=== PATIENT | female | born 1930 | race Caucasian/White ===

== ENCOUNTER 2016-08-24 19:49 | Emergency (ER) | payer MEDICARE, MEDICAID ==
[2016-08-24 19:50] VITALS: BMI 35.1
--- NOTE | 2016-08-24 20:07 | C.PDOC ---
History Of Present Illness Patient is an 86 year old female sent to the ER by snf for a CT of the head after having a fall. Patient was found on the floor by nurses at the home. Patient complains of generalized body aches but denies direct chest pain or abdominal pain. Chief Complaint (Nursing): Headache History Per: Patient History/Exam Limitations: no limitations Onset/Duration Of Symptoms: Hrs Current Symptoms Are (Timing): Still Present Quality: Other (Headache) Preceeding Symptoms: None Recent travel outside of the [place]: No Past Medical History Reviewed: Historical Data, Nursing Documentation, Vital Signs Vital Signs: Last Vital Signs Temp 97.9 F 08/25/16 01:29 Pulse 87 08/25/16 01:29 Resp 20 08/25/16 01:29 BP 110/79 08/25/16 01:29 Pulse Ox 98 08/25/16 05:19 - Medical History PMH: Anxiety, Arthritis, Asthma, COPD, Dementia, Diabetes, Emphysema, HTN, Chronic Pain (Left Knee) Surgical History: No Surg Hx Family History: States: Unknown Family Hx - Social History Hx Tobacco Use: No Hx Alcohol Use: No Hx Substance Use: No - Immunization History Hx Tetanus Toxoid Vaccination: No Hx Influenza Vaccination: No Hx Pneumococcal Vaccination: No Review Of Systems Cardiovascular: Negative for: Chest Pain Musculoskeletal: Positive for: Other (Generalized body aches). Negative for: Neck Pain Neurological: Positive for: Headache Physical Exam - Physical Exam Appears: Well, Non-toxic, Other (Conscious and alert) Skin: Normal Color, Warm, Dry Head: Atraumatic, Normacephalic Eye(s): bilateral: Normal Inspection, EOMI Oral Mucosa: Moist Chest: Symmetrical, No Tenderness Cardiovascular: Rhythm Regular, No Murmur Respiratory: Normal Breath Sounds, No Rales, No Rhonchi, No Wheezing Gastrointestinal/Abdominal: Soft, No Tenderness Neurological/Psych: Oriented x3, Normal Speech, Normal Cognition, Other (No focal deficits) ED Course And Treatment ECG: Interpreted By Me, Viewed By Me ECG Rhythm: Sinus Rhythm, 1st Degree HB, R BBB ECG Interpretation: No Acute Changes, Abnormal Interpretation Of ECG: Sinus rhythm with 1st degree av block, CRBBB , Left axis deviation, LAHB, abnormal tracings. Rate From EC O2 Sat by Pulse Oximetry: 98 (Room air) Pulse Ox Interpretation: Normal - CT Scan/US CT head w/o contrast Other Rad Studies (CT/US): Read By Radiologist, Radiology Report Reviewed CT/US Interpretation: IMPRESSION: No acute findings. Progress Note: Head CT w/o contrast and EKG ordered. Dr. Fay called and notified of CT results, patient is cleared for discharge. Disposition Discussed With : John Fay Counseled Patient/Family Regarding: Diagnosis - Disposition Referrals: John Fay MD [Staff Provider] - Disposition: TRANSF TO SNF Disposition Time: 01:30 Condition: STABLE Instructions: General Headache (ED) - POA Present On Arrival: None - Clinical Impression Clinical Impression: Headache, Fall at snf - Scribe Statement The provider has reviewed the documentation as recorded by the Scribfaustina Pettit All medical record entries made by the Scribe were at my direction and personally dictated by me. I have reviewed the chart and agree that the record accurately reflects my personal performance of the history, physical exam, medical decision making, and the department course for this patient. I have also personally directed, reviewed, and agree with the discharge instructions and disposition.
[2016-08-25 01:32] VITALS: BP 110/79; PULSE 87; RESP 20; TEMP 97.9; O2SAT 98
--- NOTE | 2016-08-25 08:15 | CT ---
PROCEDURE: CT HEAD WITHOUT CONTRAST. HISTORY: Posttraumatic headache. COMPARISON: 10/18/2014. TECHNIQUE: Axial computed tomography images were obtained through the head/brain without intravenous contrast. Coronal and sagittal reconstructed images. Radiation dose: Total exam DLP = 854.28 mGy-cm. This CT exam was performed using one or more of the following dose reduction techniques: Automated exposure control, adjustment of the mA and/or kV according to patient size, and/or use of iterative reconstruction technique. FINDINGS: HEMORRHAGE: No intracranial hemorrhage. BRAIN: No mass effect or edema. Cortical atrophy, periventricular small vessel disease VENTRICLES: Unremarkable. No hydrocephalus. CALVARIUM: Unremarkable. PARANASAL SINUSES: Unremarkable as visualized. No significant inflammatory changes. MASTOID AIR CELLS: Unremarkable as visualized. No inflammatory changes. OTHER FINDINGS: None. IMPRESSION: No acute intracranial abnormalities. No significant findings to account for the clinical presentation. No significant interval change compared to the prior examination(s). Concordant results (preliminary interpretation) provided by [facility]. Procedure Completed: 21:18. Preliminary ([facility]) Report: Dictated and Authenticated: 21:42 Final Interpretation: 08:14. August 25, 2016.
--- NOTE | 2016-08-28 12:40 | CARD ---
APPROVED REPORT EKG Measurement Heart [id number] <Conclusion> Sinus rhythm with 1st degree AV block Right bundle branch block Left anterior fascicular block Bifascicular block Minimal voltage criteria for LVH, may be normal variant Septal infarct, age undetermined Abnormal ECG
== END 2016-08-25 01:32 ==
LOC: C.ER 19:49
DX: R51 Headache (principal); W05.0XXA Fall from non-moving wheelchair, initial encounter; Y92.129 Unspecified place in nursing home as the place of occurrence of the external cause

== ENCOUNTER 2016-11-07 11:57 | Observation (INO) | payer MEDICARE, MEDICAID ==
[2016-11-07 11:57] VITALS: BMI 35.1
--- NOTE | 2016-11-07 12:53 | C.PDOC ---
History Of Present Illness LIMITED DUE TO DEMENTIA REFERRED FROM [facility] BY PMD FOR MRI. PATIENT'S DAUGHTER STATES: NEW ONSET SLURRED SPEECH GOING ON FOR WEEKS, CONCERNED FOR STROKE. DENIES CHANGE IN MENTAL STATUS. SHE ALSO REPORTS THE PT DOES NOT WALK "FOR A WHILE". STATE PT HAS BEEN EATING AND DRINKING NORMALLY. Time Seen by Provider: 11/07/16 12:48 Chief Complaint (Nursing): Medical Clearance History Per: Family (DAUGHTER) History/Exam Limitations: no limitations Onset/Duration Of Symptoms: Days Current Symptoms Are (Timing): Still Present Recent travel outside of the [place]: No Past Medical History Reviewed: Historical Data, Nursing Documentation, Vital Signs Vital Signs: Last Vital Signs Temp 98.3 F 11/08/16 16:00 Pulse 92 H 11/08/16 16:00 Resp 20 11/08/16 16:00 BP 140/83 11/08/16 16:00 Pulse Ox 98 11/08/16 16:00 - Medical History PMH: Anxiety, Arthritis, Asthma, COPD, Dementia, Diabetes, Emphysema, HTN, Chronic Pain (Left Knee) Family History: States: Unknown Family Hx - Social History Hx Tobacco Use: No Hx Alcohol Use: No Hx Substance Use: No - Immunization History Hx Tetanus Toxoid Vaccination: No Hx Influenza Vaccination: No Hx Pneumococcal Vaccination: No Review Of Systems Review Of Systems: ROS cannot be obtained secondary to pt's inabilty to answer questions. Physical Exam - Physical Exam Appears: Non-toxic, Other (AAO X 2) Skin: Warm, Dry Head: Atraumatic, Normacephalic Chest: Symmetrical Cardiovascular: Rhythm Regular Respiratory: No Rales, No Rhonchi, No Wheezing Gastrointestinal/Abdominal: Soft, No Tenderness, No Guarding, No Rebound Extremity: Normal ROM Neurological/Psych: Other (SEE NIH) ED Course And Treatment - Laboratory Results Result Diagrams: 11/07/16 13:29 11/08/16 07:14 ECG: Interpreted By Co ECG Rhythm: Sinus Rhythm, 1st Degree HB O2 Sat by Pulse Oximetry: 97 (RA) Pulse Ox Interpretation: Normal - Radiology CXR: Read By Radiologist - CT Scan/US CT ABDOMEN/PELVIS Other Rad Studies (CT/US): Read By Radiologist, Radiology Report Reviewed CT/US Interpretation: FINDINGS: LOWER THORAX: Limited bilateral basilar dependent atelectasis identified. No pleural or pericardial effusion. Mild cardiomegaly is noted as well as a small hiatal hernia. Calcified granuloma is seen at the left lower lobe. LIVER: 115 cm cyst in the right lobe liver posteriorly with the talus is seen even more inferiorly in the right lobe, too small to characterize. GALLBLADDER AND BILE DUCTS: Unremarkable. PANCREAS: Unremarkable. No gross lesion or ductal dilatation. SPLEEN: Unremarkable. ADRENALS: Unremarkable. No mass. KIDNEYS AND URETERS: There is an 11 mm lucency seen at the upper pole right kidney laterally, which measures 26 Hounsfield units and may represent a right complex cyst although a solid nodule is not completely excluded. Follow-up CT or MRI without contrast is advised for better characterization. A tiny 4 mm lucency seen the upper pole right kidney too small to characterize The left kidney appears diffusely unremarkable. VASCULATURE: Atherosclerotic without aortic aneurysm. BOWEL: Patient is identified status post partial right hemicolectomy with retained fecal material traversing the anastomotic segment, obscuring it. No gross finding is seen related to this area. No pericolic reaction is seen throughout the exam. Liquified fecal material is identified at the splenic flexure and proximal to mid descending colon with borderline pericolic reaction which could reflect an early colitis. No mural thickening is identified however. Further clinical correlation is advised. Small-bowel loops reduced unremarkable. Lack of oral contrast limits interpretation. Extensive sigmoid diverticular change identified with mural thickening which may be chronic. Trace fluid is question lateral to the mid to distal sigmoid colon and element of acute diverticular disease is not excluded. Further clinical correlation is advised. Stomach is largely collapsed. APPENDIX: Prior right hemicolectomy. PERITONEUM: No ascites or free air. . LYMPH NODES: Unremarkable. No enlarged lymph nodes. BLADDER: Unremarkable. REPRODUCTIVE: Calcified uterine fibroids noted. BONES : No acute fracture. OTHER FINDINGS: A tiny supraumbilical hernia is identified with the neck measuring 1 cm. No bowel involved, only mesenteric fat. IMPRESSION: Prior right hemicolectomy is appreciated with retained fecal material obscuring the anastomotic site in the right upper quadrant. No local reactive change are appreciated or free air to suggest acute disease at the right knee abdomen. Liquid fecal associate the left hemicolon and extensively bulk sigmoid diverticular changes are appreciated with trace potential fluid posterior to the mid to distal sigmoid colon. Active diverticulitis difficult to completely exclude. No abscess or free air. Also complex cyst or nodule 11 mm at the upper pole right kidney. Follow-up CT or MRI is advised without contrast for greater characterization. Sigmoid diverticular change are present with borderline pattern of acute diverticulitis. Further clinical correlation is advised. The lesser findings as discussed above. Progress - Re-Evaluation Re-evaluation Note: 11/07/16 13:00 D/W DR DAVIS WILL ADMIT. 11/07/16 13:57 NO SX SUGGESTIVE OF PNEUMONIA. NO WBC W SHIFT. CXR FINDINGS TO BE FURTHER MANAGED BY PMD - Data Reviewed Data Reviewed: Lab, Diagnostic imaging, EKG, Old records - Continuity of Care Discussed patient case with:: Patient, Family-HIPPA compliant, PMD Medical Decision Making Medical Decision Making: DAUGHTER STATES NO KNOWN METALLIC FOREIGN BODY. PT DOES HAVE ANXIETY, POSSIBLE PRIOR POOR TOLERANCE OF HAVING MRI DONE. CONVERSATION WITH RYAN AT 13:00 - AWARE OF FINDINGS, AWARE OF CONCERN OVER PT TOLERATING PROCEDURE, WILL ADMIT OBS AND PERFORM TEST INPATIENT. NO CT PER DR. DAVIS. Disposition Counseled Patient/Family Regarding: Studies Performed, Diagnosis - Disposition Disposition: HOSPITALIZED Disposition Time: 14:00 Condition: STABLE - Clinical Impression Clinical Impression: Slurred speech - Scribe Statement The provider has reviewed the documentation as recorded by the Scribe SM All medical record entries made by the Scribe were at my direction and personally dictated by me. I have reviewed the chart and agree that the record accurately reflects my personal performance of the history, physical exam, medical decision making, and the department course for this patient. I have also personally directed, reviewed, and agree with the discharge instructions and disposition.
--- NOTE | 2016-11-07 13:30 | RAD ---
PROCEDURE: CHEST RADIOGRAPH, 1 VIEW HISTORY: MED CLEAR SLURRED SPEECH COMPARISON: 02/19/2015 FINDINGS: LUNGS: Prominent diffuse increased interstitial lung markings suggestive for edema and or infiltrate. Prominent patchy consolidative increased markings within the left mid to lower lung zone as well as within the right infra and suprahilar regions. Scattered nodularity throughout both lungs. Biapical pleural thickening with upper lobe granulomatous changes. Right hilar prominence. PLEURA: As above. CARDIOVASCULAR: Cardiomegaly. Calcification at the aortic knob. OSSEOUS STRUCTURES: Degenerative changes in the spine and shoulders. Suggestion of calcific tendinopathy of the right proximal humerus. VISUALIZED UPPER ABDOMEN: Normal. OTHER FINDINGS: Surgical clips in the right axilla. IMPRESSION: Prominent diffuse increased interstitial lung markings suggestive for edema and or infiltrate. Prominent patchy consolidative increased markings within the left mid to lower lung zone as well as within the right infra and suprahilar regions. Scattered nodularity throughout both lungs. Biapical pleural thickening with upper lobe granulomatous changes. Right hilar prominence.
[2016-11-07 13:32] LABS: BASO # 0.1 K/uL (0.0-0.2); BASO % 0.7 % (0.0-2.0); EOS # 0.4 K/uL (0.0-0.7); EOS % 3.8 % (0.0-4.0); HEMATOCRIT 40.2 % (34.0-47.0); LYMPH # 2.2 K/uL (1.0-4.3); LYMPH % 19.9 % (20.0-40.0); MEAN CELL VOLUME 89.2 fL (81.0-99.0); MEAN CORPUSCULAR HGB CONC 33.6 g/dL (33.0-37.0); MEAN PLATELET VOLUME 9.4 fL (7.2-11.7); MONO # 0.6 K/uL (0.0-0.8); MONO % 5.6 % (0.0-10.0); RED CELL DISTRIBUTION WIDTH 13.6 % (11.5-14.5); WHITE BLOOD COUNT 10.9 K/uL (4.8-10.8)
[2016-11-07 14:27] LABS: CHLORIDE 102 mmol/L (98-107); SODIUM 138 mmol/L (132-148)
[2016-11-07 14:28] LABS: POTASSIUM 5.4 mmol/L (3.6-5.2)
[2016-11-07 14:30] LABS: BLOOD UREA NITROGEN 22 mg/dL (7-17); CALCIUM 8.8 mg/dl (8.6-10.4); CARBON DIOXIDE 26 mmol/L (22-30); GFR AFRICAN-AMERICAN > 60; GLUCOSE,RANDOM 128 mg/dL (65-105)
[2016-11-07] MEDS ORDERED: Albuterol-Ipratrop 3 mg / 0.5 (3 ml) UD INH PRN (16:00)
[2016-11-07 16:46] VITALS: RESP 20
[2016-11-07] MEDS: (Novolog) Insulin Aspart, Recombinant 100 u/ml 10 ml vial SC SCH ×2 (17:49→21:49)
--- NOTE | 2016-11-08 03:11 | CP.PCM.HP ---
History of Present Illness - History of Present Illness History of Present Illness: 86 Y/O WITH ALZHEIMRS, DM, HTN OA CAME WITH ACUTE CHANGES IN MENTAL STATUS, NO FEVER, SHE IS HERE TO R/O CVA, NO NAUSEA, NO DIZZINESS, ACUTE AGITATED AND IS S/ P SEDATION FOR MRI, NO NAUSEA, Present on Admission - Present on Admission Any Indicators Present on Admission: No History of DVT/PE: No History of Uncontrolled Diabetes: No Urinary Catheter: No Decubitus Ulcer Present: No Review of Systems - Review of Systems Systems not reviewed;Unavailable: Uncooperative - Constitutional Constitutional: Chills, Headache - EENT Nose/Mouth/Throat: Nasal Congestion - Respiratory Respiratory: Cough, Chest Congestion - Gastrointestinal Gastrointestinal: Bloating - Musculoskeletal Musculoskeletal: Arthralgias - Neurological Neurological: Abnormal Gait, Behavioral Changes, Confusion, Tingling, Tremor, Weakness - Psychiatric Psychiatric: Anxiety, Depression - Endocrine Endocrine: Fatigue, Palpitations Past Patient History - Past Medical History & Family History Past Medical History?: Yes - Past Social History Smoking Status: Never Smoked - CARDIAC Hx Hypertension: Yes - PULMONARY Hx Asthma: Yes Hx Chronic Obstructive Pulmonary Disease (COPD): Yes Hx Emphysema: Yes - NEUROLOGICAL Hx Dementia: Yes - HEENT Hx HEENT Problems: No - RENAL Hx Chronic Kidney Disease: No - ENDOCRINE/METABOLIC Hx Diabetes Mellitus Type 2: Yes - HEMATOLOGICAL/ONCOLOGICAL Hx Blood Disorders: No Hx Cancer: Yes (BREAST CA RIGHT) - INTEGUMENTARY Hx Dermatological Problems: No - MUSCULOSKELETAL/RHEUMATOLOGICAL Hx Arthritis: Yes Hx Falls: No - GASTROINTESTINAL Hx Gastrointestinal Disorders: No - GENITOURINARY/GYNECOLOGICAL Hx Genitourinary Disorders: No - PSYCHIATRIC Hx Anxiety: Yes Hx Substance Use: No - SURGICAL HISTORY Hx Mastectomy: Yes (Right mastectomy) Hx Orthopedic Surgery: Yes (left knee) - ANESTHESIA Hx Anesthesia: Yes Hx Anesthesia Reactions: No Hx Malignant Hyperthermia: No Meds Allergies/Adverse Reactions: Allergies Allergy/AdvReac Type Severity Reaction Status Date / Time No Known Allergies Allergy Verified 08/24/16 20:04 Physical Exam - Constitutional Appears: Non-toxic, No Acute Distress - Head Exam Head Exam: ATRAUMATIC, NORMAL INSPECTION, NORMOCEPHALIC - Eye Exam Eye Exam: EOMI, Normal appearance, PERRL Pupil Exam: NORMAL ACCOMODATION - ENT Exam ENT Exam: Mucous Membranes Moist, Normal Exam, Normal Oropharynx, TM's Normal Bilaterally - Neck Exam Neck exam: Positive for: Normal Inspection - Respiratory Exam Respiratory Exam: Decreased Breath Sounds, Rales, Rhonchi, NORMAL BREATHING PATTERN - Cardiovascular Exam Cardiovascular Exam: REGULAR RHYTHM, +S1, +S2 - GI/Abdominal Exam GI & Abdominal Exam: Normal Bowel Sounds - Rectal Exam Rectal Exam: NORMAL INSPECTION - Extremities Exam Extremities exam: Positive for: normal capillary refill, normal inspection, pedal edema, pedal pulses present - Back Exam Back exam: NORMAL INSPECTION - Neurological Exam Neurological exam: Abnormal Gait, Altered - Psychiatric Exam Psychiatric exam: Anxious, Depressed, Flat Affect Results - Vital Signs Recent Vital Signs: Last Vital Signs Temp 98.5 F 11/08/16 00:00 Pulse 85 11/08/16 00:00 Resp 20 11/08/16 00:00 BP 130/69 11/08/16 00:00 Pulse Ox 96 11/08/16 00:00 - Labs Result Diagrams: 11/07/16 13:29 11/07/16 14:13 Labs: Laboratory Results - last 24 hr 11/07/16 11/07/16 11/07/16 13:29 14:13 17:02 WBC 10.9 H RBC 4.51 Hgb 13.5 Hct 40.2 MCV 89.2 MCH 30.0 MCHC 33.6 RDW 13.6 Plt Count 241 MPV 9.4 Neut % (Auto) 70.0 Lymph % (Auto) 19.9 L [place] % (Auto) 5.6 Eos % (Auto) 3.8 Baso % (Auto) 0.7 Neut # 7.7 H Lymph # 2.2 [place] # 0.6 Eos # 0.4 Baso # 0.1 Sodium 138 Potassium 5.4 H Chloride 102 Carbon Dioxide 26 Anion Gap 15 BUN 22 H Creatinine 0.6 L Est GFR ( Amer) > 60 Est GFR (Non-Af Amer) > 60 POC Glucose (mg/dL) 144 H Random Glucose 128 H Calcium 8.8 11/07/16 21:31 WBC RBC Hgb Hct MCV MCH MCHC RDW Plt Count MPV Neut % (Auto) Lymph % (Auto) [place] % (Auto) Eos % (Auto) Baso % (Auto) Neut # Lymph # [place] # Eos # Baso # Sodium Potassium Chloride Carbon Dioxide Anion Gap BUN Creatinine Est GFR ( Amer) Est GFR (Non-Af Amer) POC Glucose (mg/dL) 174 H Random Glucose Calcium Assessment & Plan (1) Altered mental status, unspecified Assessment and Plan: R/O CVA, MRI Status: Acute (2) COPD exacerbation Status: Chronic (3) Diabetes mellitus Status: Chronic (4) Hypertension Status: Chronic
[2016-11-08] MEDS: guaiFENesin 600 mg ER Tab PO SCH ×3 (03:15→17:40)
[2016-11-08] MEDS: Albuterol-Ipratrop 3 mg / 0.5 (3 ml) UD INH SCH ×2 (07:31→13:49)
[2016-11-08 07:42] LABS: BLOOD UREA NITROGEN 22 mg/dL (7-17); CALCIUM 9.1 mg/dl (8.6-10.4); CARBON DIOXIDE 28 mmol/L (22-30); CHLORIDE 101 mmol/L (98-107); CHOLESTEROL 155 mg/dL (0-199); GFR AFRICAN-AMERICAN > 60; GLUCOSE,RANDOM 152 mg/dL (65-105); SODIUM 138 mmol/L (132-148)
[2016-11-08] MEDS: (Novolog) Insulin Aspart, Recombinant 100 u/ml 10 ml vial SC SCH ×3 (08:25→16:55)
--- NOTE | 2016-11-08 09:53 | MRI ---
PROCEDURE: MRI BRAIN WITHOUT CONTRAST HISTORY: slurred speech for 1 week COMPARISON: None. TECHNIQUE: Multiplanar, multisequence MR images of the brain were obtained without intravenous contrast enhancement. FINDINGS: HEMORRHAGE: None DWI: No evidence of an acute or early subacute infarction. BRAIN PARENCHYMA: Diffuse cerebral atrophy is manifest by expansion of the ventricular sulcal and cisternal spaces. Chronic microangiopathy is manifest by centrum semiovale apparent and periventricular white matter signal abnormality including subcortical white matter as well, predominantly at the cerebrum. Posterior fossa contents appear unremarkable the brainstem. There is no mass effect and the midline brain anatomy appears within normal limits diffusely. VENTRICLES: Unremarkable. No hydrocephalus. CRANIUM: Unremarkable. ORBITS: Grossly unremarkable. PARANASAL SINUSES/MASTOIDS: Clear VASCULAR SYSTEM: Skull base flow voids intact. OTHER FINDINGS: None. IMPRESSION: Age-appropriate age related neuro degenerative changes are identified. No definite acute intracranial findings. Motion artifact distorts several sequences this examination.
[2016-11-08] MEDS ORDERED: Pantoprazole 20 mg EC Tab PO SCH (10:00)
--- NOTE | 2016-11-08 15:03 | CP.PCM.PN ---
Subjective - Date & Time of Evaluation Date of Evaluation: 11/08/16 Time of Evaluation: 11:35 - Subjective Subjective: Pt seen and examined today, denies any fever, chills, abdominal niels n . N/V/D , a febrile Objective - Vital Signs/Intake and Output Vital Signs (last 24 hours): Temp Pulse Resp BP Pulse Ox 98 F 79 20 123/80 100 11/08/16 08:08 11/08/16 08:08 11/08/16 08:08 11/08/16 08:08 11/08/16 08:08 Intake and Output: 11/08/16 11/08/16 06:59 18:59 Intake Total 10 Balance 10 - Medications Medications: Current Medications Acetaminophen (Tylenol 325mg Tab) 650 mg PO Q4 PRN PRN Reason: Pain, Mild (1-3) Albuterol/Ipratropium (Duoneb 3 Mg/0.5 Mg (3 Ml) Ud) 3 ml INH RQ6 [facility] Last Admin: 11/08/16 13:49 Dose: Not Given Alprazolam (Xanax) 0.5 mg PO Q12 PRN PRN Reason: Anxiety Docusate Sodium (Colace) 200 mg PO HS [facility] Last Admin: 11/07/16 21:20 Dose: 200 mg Guaifenesin (Mucinex La) 600 mg PO BID [facility] Last Admin: 11/08/16 09:58 Dose: 600 mg Heparin Sodium (Porcine) (Heparin) 5,000 units SC Q8 [facility] Last Admin: 11/08/16 14:58 Dose: 5,000 units Ceftriaxone Sodium 1 gm/ (Sodium Chloride) 100 mls @ 100 mls/hr IVPB DAILY [facility] Last Admin: 11/08/16 10:01 Dose: 100 mls/hr Insulin Aspart (Novolog) 0 unit SC ACHS [facility] PRN Reason: Protocol Last Admin: 11/08/16 12:19 Dose: Not Given Losartan Potassium (Cozaar) 25 mg PO DAILY [facility] Last Admin: 11/08/16 09:58 Dose: 25 mg Memantine (Namenda) 10 mg PO BID [facility] Last Admin: 11/08/16 09:59 Dose: 10 mg Mirtazapine (Remeron) 15 mg PO HS [facility] Last Admin: 11/07/16 21:20 Dose: 15 mg Pantoprazole Sodium (Protonix Ec Tab) 20 mg PO DAILY [facility] Last Admin: 11/08/16 10:01 Dose: 20 mg Pneumococcal Polyvalent Vaccine (Pneumovax 23 Vaccine) 0.5 ml SC .ONCE ONE Stop: 11/09/16 10:01 Zolpidem Tartrate (Ambien) 5 mg PO HS PRN PRN Reason: Insomnia - Labs Labs: 11/07/16 13:29 11/08/16 07:14 - Constitutional Appears: Well, No Acute Distress - Respiratory Exam Respiratory Exam: Clear to Ausculation Bilateral, NORMAL BREATHING PATTERN - Cardiovascular Exam Cardiovascular Exam: REGULAR RHYTHM, +S1, +S2 - GI/Abdominal Exam GI & Abdominal Exam: Soft, Normal Bowel Sounds
--- NOTE | 2016-11-08 16:04 | CP.PCM.PN ---
Subjective - Date & Time of Evaluation Date of Evaluation: 11/08/16 Time of Evaluation: 11:40 - Subjective Subjective: Pt seen and examined today , awake, alert, NAD, a febrile No overnight events reported by RN Objective - Vital Signs/Intake and Output Vital Signs (last 24 hours): Temp Pulse Resp BP Pulse Ox 98 F 79 20 123/80 100 11/08/16 08:08 11/08/16 08:08 11/08/16 08:08 11/08/16 08:08 11/08/16 08:08 Intake and Output: 11/08/16 11/08/16 06:59 18:59 Intake Total 10 400 Balance 10 400 - Medications Medications: Current Medications Acetaminophen (Tylenol 325mg Tab) 650 mg PO Q4 PRN PRN Reason: Pain, Mild (1-3) Albuterol/Ipratropium (Duoneb 3 Mg/0.5 Mg (3 Ml) Ud) 3 ml INH RQ6 [facility] Last Admin: 11/08/16 13:49 Dose: Not Given Alprazolam (Xanax) 0.5 mg PO Q12 PRN PRN Reason: Anxiety Docusate Sodium (Colace) 200 mg PO HS [facility] Last Admin: 11/07/16 21:20 Dose: 200 mg Guaifenesin (Mucinex La) 600 mg PO BID [facility] Last Admin: 11/08/16 09:58 Dose: 600 mg Heparin Sodium (Porcine) (Heparin) 5,000 units SC Q8 [facility] Last Admin: 11/08/16 14:58 Dose: 5,000 units Ceftriaxone Sodium 1 gm/ (Sodium Chloride) 100 mls @ 100 mls/hr IVPB DAILY [facility] Last Admin: 11/08/16 10:01 Dose: 100 mls/hr Insulin Aspart (Novolog) 0 unit SC ACHS [facility] PRN Reason: Protocol Last Admin: 11/08/16 12:19 Dose: Not Given Losartan Potassium (Cozaar) 25 mg PO DAILY [facility] Last Admin: 11/08/16 09:58 Dose: 25 mg Memantine (Namenda) 10 mg PO BID [facility] Last Admin: 11/08/16 09:59 Dose: 10 mg Mirtazapine (Remeron) 15 mg PO HS [facility] Last Admin: 11/07/16 21:20 Dose: 15 mg Pantoprazole Sodium (Protonix Ec Tab) 20 mg PO DAILY [facility] Last Admin: 11/08/16 10:01 Dose: 20 mg Pneumococcal Polyvalent Vaccine (Pneumovax 23 Vaccine) 0.5 ml SC .ONCE ONE Stop: 11/09/16 10:01 Zolpidem Tartrate (Ambien) 5 mg PO HS PRN PRN Reason: Insomnia - Labs Labs: 11/07/16 13:29 11/08/16 07:14 Assessment and Plan - Assessment and Plan (Free Text) Assessment: a/p 86 yr old female admitted from [place] for slurred speech for 1 week r/o stroke MRI - done -Age-appropriate age related neuro degenerative changes are identified. No definite acute intracranial findings. Motion artifact distorts several sequences this examination. labs- wnl d/W with Dr. Fay, stable for discharge back to [place] , continue amoxicillin for x 7 day s Discharge plan discussed with daughter at bedside , who understands and agrees with plan
[2016-11-08 16:51] VITALS: PULSE 92; TEMP 98.3
[2016-11-08 16:53] VITALS: BP 140/83
--- NOTE | 2016-11-09 01:44 | CP.PCM.DIS ---
Provider - Provider Date of Admission: 11/07/16 13:02 Attending physician: John Fay MD Time Spent in preparation of Discharge (in minutes): 30 Diagnosis - Discharge Diagnosis (1) Altered mental status, unspecified Status: Resolved (2) COPD exacerbation Status: Chronic (3) Diabetes mellitus Status: Chronic (4) Hypertension Status: Chronic Hospital Course - Lab Results Lab Results: Micro Results 11/07/16 15:30 Blood Blood Culture - Preliminary NO GROWTH AFTER 24 HOURS Most Recent Lab Values WBC 10.9 K/uL (4.8-10.8) H 11/07/16 13:29 RBC 4.51 Mil/uL (3.80-5.20) 11/07/16 13:29 Hgb 13.5 g/dL (11.0-16.0) 11/07/16 13:29 Hct 40.2 % (34.0-47.0) 11/07/16 13:29 MCV 89.2 fL (81.0-99.0) 11/07/16 13:29 MCH 30.0 pg (27.0-31.0) 11/07/16 13:29 MCHC 33.6 g/dL (33.0-37.0) 11/07/16 13:29 RDW 13.6 % (11.5-14.5) 11/07/16 13:29 Plt Count 241 K/uL (130-400) 11/07/16 13:29 MPV 9.4 fL (7.2-11.7) 11/07/16 13:29 Neut % (Auto) 70.0 % (50.0-75.0) 11/07/16 13:29 Lymph % (Auto) 19.9 % (20.0-40.0) L 11/07/16 13:29 Hayes % (Auto) 5.6 % (0.0-10.0) 11/07/16 13:29 Eos % (Auto) 3.8 % (0.0-4.0) 11/07/16 13:29 Baso % (Auto) 0.7 % (0.0-2.0) 11/07/16 13:29 Neut # 7.7 K/uL (1.8-7.0) H 11/07/16 13:29 Lymph # 2.2 K/uL (1.0-4.3) 11/07/16 13:29 Hayes # 0.6 K/uL (0.0-0.8) 11/07/16 13:29 Eos # 0.4 K/uL (0.0-0.7) 11/07/16 13:29 Baso # 0.1 K/uL (0.0-0.2) 11/07/16 13:29 Sodium 138 mmol/L (132-148) 11/08/16 07:14 Potassium 4.0 mmol/L (3.6-5.2) 11/08/16 07:14 Chloride 101 mmol/L (98-107) 11/08/16 07:14 Carbon Dioxide 28 mmol/L (22-30) 11/08/16 07:14 Anion Gap 13 (10-20) 11/08/16 07:14 BUN 22 mg/dL (7-17) H 11/08/16 07:14 Creatinine 0.6 MG/DL (0.7-1.2) L 11/08/16 07:14 Est GFR ( Amer) > 60 11/08/16 07:14 Est GFR (Non-Af Amer) > 60 11/08/16 07:14 POC Glucose (mg/dL) 122 mg/dL (65-110) H 11/08/16 16:31 Random Glucose 152 mg/dL (65-105) H 11/08/16 07:14 Calcium 9.1 mg/dl (8.6-10.4) 11/08/16 07:14 Triglycerides 161 mg/dL (0-149) H 11/08/16 07:14 Cholesterol 155 mg/dL (0-199) 11/08/16 07:14 LDL Cholesterol Direct 86 mg/dL (0-129) 11/08/16 07:14 HDL Cholesterol 40 mg/dL (30-70) 11/08/16 07:14 - Hospital Course Hospital Course: ADMITTED WITH AMS AND SUSPICION OF CVA AND IT WAS RULED OUT, HAS COUGH AND WHEEZING AND IS ON ANTIBIOTICS AND NEBULIZER Discharge Exam - Head Exam Head Exam: ATRAUMATIC, NORMAL INSPECTION, NORMOCEPHALIC - Eye Exam Eye Exam: EOMI, Normal appearance, PERRL Pupil Exam: NORMAL ACCOMODATION - ENT Exam ENT Exam: Mucous Membranes Moist, Normal Exam, Normal Oropharynx, TM's Normal Bilaterally - Neck Exam Neck exam: Normal Inspection - Respiratory Exam Respiratory Exam: Rhonchi, NORMAL BREATHING PATTERN - Cardiovascular Exam Cardiovascular Exam: REGULAR RHYTHM, +S1, +S2 - GI/Abdominal Exam GI & Abdominal Exam: Normal Bowel Sounds - Rectal Exam Rectal Exam: NORMAL INSPECTION - Neurological Exam Neurological exam: Abnormal Gait, Alert, CN II-XII Intact, Motor Sensory Deficit - Psychiatric Exam Psychiatric exam: Anxious, Depressed, Flat Affect - Skin Skin Exam: Intact Discharge Plan - Discharge Medications Prescriptions: Amoxicillin [Amoxicillin 250mg/5ml Susp] 500 mg PO Q12 7 Days - Follow Up Plan Condition: STABLE Disposition: [facility]
[2016-11-09] MEDS ORDERED: Pneumococcal 23-Valent Vaccine SC ONE (10:00)
[2016-11-09 15:29] VITALS: O2SAT 97
--- NOTE | 2016-11-20 20:22 | CARD ---
APPROVED REPORT EKG Measurement Heart [id number] <Conclusion> Sinus rhythm with 1st degree AV block Left axis deviation Left ventricular hypertrophy with QRS widening Cannot rule out Septal infarct, age undetermined Abnormal ECG
== END 2016-11-08 18:00 ==
LOC: C.ER 11:57 → C.9E 13:02 → C.3T 15:24
PROVIDERS: ADMIT Internal Medicine; ATTEND Internal Medicine
DX: R47.81 Slurred speech (principal); G30.9 Alzheimer's disease, unspecified; F02.80 Dementia in other diseases classified elsewhere, unspecified severity, without behavioral disturbance, psychotic disturbance, mood disturbance, and anxiety; F41.9 Anxiety disorder, unspecified; I10 Essential (primary) hypertension; J44.1 Chronic obstructive pulmonary disease with (acute) exacerbation; E11.9 Type 2 diabetes mellitus without complications; Z79.4 Long term (current) use of insulin
CPT/HCPCS: 36415; 70551; 71010; 80048; 80061; 82948; 85025; 87040; 94640; 97162; 97165; 97530; 97535; 99283; G0378; G8978; G8979; G8987; G8988; G8989; J0696; J1644; J2060

== ENCOUNTER 2017-01-15 17:05 | Inpatient (IN) | payer MEDICARE, MEDICAID ==
[2017-01-15 17:07] VITALS: BMI 35.1
[2017-01-15] MEDS ORDERED: Vancomycin 1 gm/NS 200 ml 1 GM/200 ML BAG IVPB STA (17:32)
[2017-01-15] MEDS ORDERED: Cefepime 1 GM in Sodium Chloride 0.9% 50 ML IVPB ONE (17:32)
[2017-01-15] MEDS ORDERED: Sodium Chloride 0.9% 1,000 ML IV STA (17:34)
--- NOTE | 2017-01-15 17:38 | C.PDOC ---
History Of Present Illness 86 y/o F c PMHx Anxiety, Arthritis, Asthma, COPD, Dementia, Diabetes, Emphysema , HTN sent from [facility] for fever and CXR showing bilateral infiltrates. Further history and ROS unobtainable due to patient's dementia. Time Seen by Provider: 01/15/17 17:26 Chief Complaint (Nursing): Fever Past Medical History Vital Signs: Last Vital Signs Temp 102.0 F H 01/15/17 17:12 Pulse 88 01/15/17 17:12 Resp 20 01/15/17 17:12 BP 128/79 01/15/17 17:12 Pulse Ox 98 01/15/17 17:51 - Medical History PMH: Anxiety, Arthritis, Asthma, CHF, COPD, Dementia, Depression, Diabetes, Emphysema, HTN, Hypercholesterolemia, Chronic Pain (Left Knee) Denies: Chronic Kidney Disease Family History: States: Unknown Family Hx - Social History Hx Tobacco Use: No Hx Alcohol Use: No Hx Substance Use: No - Immunization History Hx Tetanus Toxoid Vaccination: No Hx Influenza Vaccination: Yes Hx Pneumococcal Vaccination: Yes Review Of Systems Review Of Systems: ROS cannot be obtained secondary to pt's inabilty to answer questions. Physical Exam - Physical Exam Appears: Other (Crying) Skin: No Rash Head: Normacephalic Oral Mucosa: Moist Neck: Supple Chest: No Deformity Cardiovascular: Rhythm Regular Respiratory: Rhonchi (bilaterally) Gastrointestinal/Abdominal: Soft, No Tenderness Extremity: No Tenderness Pulses: Left Radial: Normal, Right Radial: Normal Neurological/Psych: Other (Alert) ED Course And Treatment - Laboratory Results Result Diagrams: 01/15/17 17:37 01/15/17 17:37 O2 Sat by Pulse Oximetry: 98 Medical Decision Making Medical Decision Making: Ibuprofen administered for fever. EKG NSR 87 bpm, RBBB, LAFB, no ST elevations, no change from previous. CXR bilateral infiltrates. Negative lactate. Antibiotics administered. Dr. Fay accepts patient to his service. Disposition Discussed With : John Fay Doctor Will See Patient In The: Hospital - Disposition Disposition: HOSPITALIZED Disposition Time: 18:09 Condition: GUARDED Forms: [employer] (Lebanese) - POA Core Measure Indicators: Pneumonia - Clinical Impression Clinical Impression: Pneumonia
[2017-01-15 17:42] LABS: BASO # 0.1 K/uL (0.0-0.2); BASO % 0.6 % (0.0-2.0); EOS # 0.2 K/uL (0.0-0.7); EOS % 1.6 % (0.0-4.0); HEMATOCRIT 39.5 % (34.0-47.0); LYMPH # 1.1 K/uL (1.0-4.3); LYMPH % 12.1 % (20.0-40.0); MEAN CELL VOLUME 88.7 fL (81.0-99.0); MEAN CORPUSCULAR HEMOGLOBIN 29.9 pg (27.0-31.0); MEAN CORPUSCULAR HGB CONC 33.7 g/dL (33.0-37.0); MEAN PLATELET VOLUME 8.9 fL (7.2-11.7); MONO # 0.6 K/uL (0.0-0.8); MONO % 5.8 % (0.0-10.0); RED CELL DISTRIBUTION WIDTH 13.3 % (11.5-14.5); WHITE BLOOD COUNT 9.5 K/uL (4.8-10.8)
[2017-01-15 17:50] LABS: INR 1.2
[2017-01-15 17:51] LABS: VENOUS BLOOD GAS BASE EXCESS 4.9 mmol/L (0.0-2.0); VENOUS BLOOD GAS PCO2 41 mmHg (40-60); VENOUS BLOOD PH 7.46 (7.32-7.43)
[2017-01-15 17:54] LABS: CHLORIDE 95 mmol/L (98-107); SODIUM 131 mmol/L (132-148)
[2017-01-15 17:55] LABS: POTASSIUM 4.3 mmol/L (3.6-5.2)
[2017-01-15 17:56] LABS: GFR AFRICAN-AMERICAN > 60
[2017-01-15 17:57] LABS: ALB/GLOB RATIO 0.9 (1.0-2.1); ALKALINE PHOSPHATASE 130 U/L (38-126); ALT/SGPT 61 U/L (9-52); AST/SGOT 57 U/L (14-36); BILIRUBIN,TOTAL 0.8 mg/dL (0.2-1.3); BLOOD UREA NITROGEN 21 mg/dL (7-17); CARBON DIOXIDE 26 mmol/L (22-30); TOTAL PROTEIN 8.2 g/dL (6.3-8.3)
[2017-01-15 17:58] LABS: CALCIUM 8.7 mg/dl (8.6-10.4); GLUCOSE,RANDOM 177 mg/dL (65-105)
[2017-01-15] MEDS ORDERED: Vancomycin 1 GM 0 GM/0 ML BAG IVPB ONE (17:59)
[2017-01-15] MEDS ORDERED: Sodium Chloride 0.9% 1,000 ML ONE (17:59)
[2017-01-15] MEDS ORDERED: Cefepime 1 GM in Sodium Chloride 0.9% 100 ML IVPB ONE (18:00)
[2017-01-15 18:35] LABS: RBC URINE 12 /hpf (0-3); TRANSITIONAL EPITHIAL < 1 /hpf (0-3); URINE BACTERIA MANY (<OCC); URINE BILIRUBIN NEGATIVE (NEGATIVE); URINE BLOOD 2+ (NEGATIVE); URINE COLOR Yellow (YELLOW); URINE GLUCOSE (UA) NORMAL (Normal); URINE KETONE NEGATIVE (NEGATIVE); URINE LEUKOCYTE ESTERASE 3+ Leu/uL (Negative); URINE PROTEIN 1+ mg/dL (NEGATIVE); URINE UROBILINOGEN NORMAL mg/dL (0.2-1.0); WBC CLUMPS MOD /hpf; WBC URINE 161 /hpf (0-5)
--- NOTE | 2017-01-15 18:56 | RAD ---
HISTORY: sepsis COMPARISON: Portable chest 01/07/2017. FINDINGS: LUNGS: Diffuse chronic interstitial pulmonary disease is appreciated with likely interval clearing of left basilar airspace disease. Trace right basilar airspace disease is questioned at this time immediately overlying the right hemidiaphragm. PLEURA: No significant pleural effusion identified, no pneumothorax apparent. CARDIOVASCULAR: Stable cardiomegaly. No definitive pulmonary vascular derangement identified. OSSEOUS STRUCTURES: No significant abnormalities. VISUALIZED UPPER ABDOMEN: Normal. OTHER FINDINGS: None. IMPRESSION: Minimal right basilar atelectasis or infiltrate. 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 CT may be utilized for further characterization if clinically warranted. Stable cardiomegaly.
[2017-01-15] MEDS ORDERED: Magnesium Hydroxide Susp 30 ml UD PO PRN (21:24)
[2017-01-15] MEDS: (Novolog) Insulin Aspart, Recombinant 100 u/ml 10 ml vial SC SCH (22:07)
[2017-01-15] MEDS: Acetaminophen-Codeine 300/30 mg Tab PO SCH (22:07)
--- NOTE | 2017-01-15 22:44 | CP.PCM.HP ---
History of Present Illness - History of Present Illness History of Present Illness: CC: fever 101 persistant despite of IV rocephin in jail HPI: 86 y/o F c PMHx Anxiety, Arthritis, Asthma, COPD, Dementia, Diabetes, Emphysema, Osteoarthritis HTN sent from [facility] for fever and CXR showing bilateral infiltrates. Further history and ROS unobtainable due to patient's dementia. fever is persistant associated with dry cough and abdominal pain Present on Admission - Present on Admission Any Indicators Present on Admission: No Review of Systems - Review of Systems Systems not reviewed;Unavailable: Unstable Vital Signs - Constitutional Constitutional: Chills, Fatigue, Fever, Lethargy, Malaise, Weakness - EENT Eyes: absent: As Per HPI, Blind Spots, Blurred Vision, Change in Vision, Decreased Night Vision, Diplopia, Discharge, Dry Eye, Exophthalmos, Floaters, Irritation, Itchy Eyes, Loss of Peripheral Vision, Pain, Photophobia, Requires Corrective Lenses, Sees Flashes, Spots in Vision, Tunnel Vision, Other Visual Disturbances, Loss of Vision, Other Nose/Mouth/Throat: absent: As Per HPI, Epistaxis, Nasal Congestion, Nasal Discharge, Nasal Obstruction, Nasal Trauma, Nose Pain, Post Nasal Drip, Sinus Pain, Sinus Pressure, Bleeding Gums, Change in Voice, Dental Pain, Dry Mouth, Dysphagia, Halitosis, Hoarsness, Lip Swelling, Mouth Lesions, Mouth Pain, Odynophagia, Sore Throat, Throat Swelling, Tongue Swelling, Facial Pain, Neck Pain, Neck Mass, Other - Breasts Breasts: absent: As Per HPI, Change in Shape, Mass, Pain, Nipple Discharge, Nipple Inversion, Skin Changes, Swelling, Other - Cardiovascular Cardiovascular: absent: As Per HPI, Acrocyanosis, Chest Pain, Chest Pain at Rest , Chest Pain with Activity, Claudication, Diaphoresis, Dyspnea, Dyspnea on Exertion, Edema, Irregular Heart Rhythm, Pain Radiating to Arm/Neck/Jaw, Leg Edema, Leg Ulcers, Lightheadedness, Orthopnea, Palpitations, Paroxysmal Nocturnal Dyspnea, Pedal Edema, Radiating Pain, Rapid Heart Rate, Slow Heart Rate, Syncope, Other - Respiratory Respiratory: Cough, Pain with Coughing - Gastrointestinal Gastrointestinal: Abdominal Pain. absent: As Per HPI, Belching, Bloating, Change in Bowel Habits, Change in Stool Character, Coffee Ground Emesis, Constipation, Cramping, Diarrhea, Dyspepsia, Dysphagia, Early Satiety, Excessive Flatus, Fecal Incontinence, Heartburn, Hematemesis, Hematochezia, Loose Stools, Melena, Nausea, Odynophagia, Temesmus, Vomiting, Other Past Patient History - Past Medical History & Family History Past Medical History?: Yes - Past Social History Smoking Status: Never Smoked - CARDIAC Hx Congestive Heart Failure: Yes Hx Hypercholesterolemia: Yes Hx Hypertension: Yes - PULMONARY Hx Asthma: Yes Hx Chronic Obstructive Pulmonary Disease (COPD): Yes Hx Emphysema: Yes - NEUROLOGICAL Hx Dementia: Yes - HEENT Hx HEENT Problems: No - RENAL Hx Chronic Kidney Disease: No - ENDOCRINE/METABOLIC Hx Endocrine Disorders: Yes Hx Diabetes Mellitus Type 2: Yes - HEMATOLOGICAL/ONCOLOGICAL Hx Blood Disorders: Yes Hx Cancer: Yes (RIGHT BREAST CA) - INTEGUMENTARY Hx Dermatological Problems: No - MUSCULOSKELETAL/RHEUMATOLOGICAL Hx Falls: No - GASTROINTESTINAL Hx Gastrointestinal Disorders: Yes Hx Gastroesophageal Reflux: Yes Other/Comment: Esophagitis - GENITOURINARY/GYNECOLOGICAL Hx Genitourinary Disorders: No - PSYCHIATRIC Hx Anxiety: Yes Hx Depression: Yes Hx Substance Use: No - SURGICAL HISTORY Hx Surgeries: Yes Hx Mastectomy: Yes (Right mastectomy) Hx Orthopedic Surgery: Yes (left knee) - ANESTHESIA Hx Anesthesia: Yes Hx Anesthesia Reactions: No Hx Malignant Hyperthermia: No Meds Home Medications: Home Medication List Medication Instructions Recorded Confirmed Type Acetaminophen [Tylenol 325mg tab] 650 mg PO Q4 PRN tab 01/18/17 Rx Acetaminophen/Codeine 2 tab PO Q4H PRN #20 01/18/17 01/15/17 Rx [Tylenol/Codeine 300 MG/30 MG] Albuterol/Ipratropium [Duoneb 3 3 ml IH RQ6 neb 01/18/17 Rx mg/0.5 mg (3 ml) UD] Aluminum Hydroxide/Magnesium 30 ml PO Q6 PRN #20 udc 01/18/17 Rx [Maalox Plus 30 ml] Ampicillin Trihydrate 500 mg PO QID #20 capsule 01/18/17 Rx Cephalexin [Keflex] 500 mg PO BID #10 capsule 01/18/17 Rx Dextromethorphan HBr/Quinidine 1 cap PO BID 01/18/17 Rx [Nuedexta 20-10 mg Capsule] Docusate [Colace] 200 mg PO HS cap 10/20/17 Rx Insulin Aspart, Recombinant 0 unit SC ACHS unit 01/18/17 Rx [Novolog] Losartan [Cozaar] 25 mg PO DAILY tab 01/18/17 Rx Magnesium Hydroxide [Milk Of 30 ml PO DAILY PRN #20 udc 01/18/17 Rx Magnesia] Mirtazapine [Remeron] 15 mg PO HS tab 01/18/17 Rx Pantoprazole [Protonix EC Tab] 20 mg PO DAILY ect 01/18/17 Rx Zolpidem [Ambien] 5 mg PO HS PRN tab 01/18/17 Rx Allergies/Adverse Reactions: Allergies Allergy/AdvReac Type Severity Reaction Status Date / Time No Known Allergies Allergy Verified 08/24/16 20:04 Physical Exam - Constitutional Appears: No Acute Distress, Confused - Head Exam Head Exam: ATRAUMATIC, NORMAL INSPECTION, NORMOCEPHALIC - Eye Exam Eye Exam: EOMI, Normal appearance, PERRL Pupil Exam: NORMAL ACCOMODATION, PERRL - ENT Exam ENT Exam: Mucous Membranes Moist, Normal Exam - Respiratory Exam Respiratory Exam: Decreased Breath Sounds, Rales, Rhonchi, NORMAL BREATHING PATTERN - Cardiovascular Exam Cardiovascular Exam: REGULAR RHYTHM - GI/Abdominal Exam GI & Abdominal Exam: Tenderness - Rectal Exam Rectal Exam: Deferred Results - Vital Signs Recent Vital Signs: Last Vital Signs Temp 97.7 F 01/15/17 19:04 Pulse 86 01/15/17 19:04 Resp 18 01/15/17 19:04 BP 133/54 L 01/15/17 19:04 Pulse Ox 100 01/15/17 19:04 - Labs Result Diagrams: 01/17/17 13:52 01/17/17 13:52 Labs: Laboratory Results - last 24 hr 01/15/17 01/15/17 01/15/17 17:37 17:37 17:37 WBC 9.5 RBC 4.45 Hgb 13.3 Hct 39.5 MCV 88.7 MCH 29.9 MCHC 33.7 RDW 13.3 Plt Count 210 MPV 8.9 Neut % (Auto) 79.9 H Lymph % (Auto) 12.1 L Hickman % (Auto) 5.8 Eos % (Auto) 1.6 Baso % (Auto) 0.6 Neut # 7.6 H Lymph # 1.1 Hickman # 0.6 Eos # 0.2 Baso # 0.1 PT 13.8 H INR 1.2 APTT 25 pO2 VBG pH VBG pCO2 VBG HCO3 VBG Total CO2 VBG O2 Sat (Calc) VBG Base Excess VBG Potassium Glucose Lactate Sodium 131 L Potassium 4.3 Chloride 95 L Carbon Dioxide 26 Anion Gap 14 BUN 21 H Creatinine 0.6 L Est GFR ( Amer) > 60 Est GFR (Non-Af Amer) > 60 POC Glucose (mg/dL) Random Glucose 177 H Calcium 8.7 Total Bilirubin 0.8 AST 57 H ALT 61 H D Alkaline Phosphatase 130 H Total Protein 8.2 Albumin 3.8 Globulin 4.4 H Albumin/Globulin Ratio 0.9 L Lipase 39 Venous Blood Potassium Urine Color Urine Clarity Urine pH Ur Specific Othello Urine Protein Urine Glucose (UA) Urine Ketones Urine Blood Urine Nitrate Urine Bilirubin Urine Urobilinogen Ur Leukocyte Esterase Urine WBC (Auto) Urine RBC (Auto) Urine WBC Clumps (Auto) Ur Squamous Epith Cells Ur Transition Epith Cell Urine Bacteria 01/15/17 01/15/17 01/15/17 17:48 18:23 21:56 WBC RBC Hgb Hct MCV MCH MCHC RDW Plt Count MPV Neut % (Auto) Lymph % (Auto) Hickman % (Auto) Eos % (Auto) Baso % (Auto) Neut # Lymph # Hickman # Eos # Baso # PT INR APTT pO2 48 VBG pH 7.46 H VBG pCO2 41 VBG HCO3 28.4 VBG Total CO2 30.5 H VBG O2 Sat (Calc) 90.6 H VBG Base Excess 4.9 H VBG Potassium 4.3 Glucose 202 H Lactate 1.1 Sodium 134.0 Potassium Chloride 101.0 Carbon Dioxide Anion Gap BUN Creatinine Est GFR ( Amer) Est GFR (Non-Af Amer) POC Glucose (mg/dL) 241 H Random Glucose Calcium Total Bilirubin AST ALT Alkaline Phosphatase Total Protein Albumin Globulin Albumin/Globulin Ratio Lipase Venous Blood Potassium 4.3 Urine Color Yellow Urine Clarity Hazy Urine pH 5.0 Ur Specific Othello 1.011 Urine Protein 1+ H Urine Glucose (UA) Normal Urine Ketones Negative Urine Blood 2+ H Urine Nitrate Positive H Urine Bilirubin Negative Urine Urobilinogen Normal Ur Leukocyte Esterase 3+ H Urine WBC (Auto) 161 H Urine RBC (Auto) 12 H Urine WBC Clumps (Auto) Mod H Ur Squamous Epith Cells < 1 Ur Transition Epith Cell < 1 Urine Bacteria Many H Assessment & Plan (1) Fever Status: Acute (2) Abdominal pain Status: Acute (3) Diabetes Status: Acute (4) COPD exacerbation Status: Chronic
[2017-01-16] MEDS ORDERED: Albuterol-Ipratrop 3 mg / 0.5 (3 ml) UD IH SCH
[2017-01-16] MEDS: Alum-Mag Hydrox-Simethicone Susp (30 mL) PO SCH ×5 (00:30→23:53)
[2017-01-16] MEDS: Acetaminophen-Codeine 300/30 mg Tab PO SCH ×6 (01:48→21:44)
[2017-01-16] MEDS: Albuterol-Ipratrop 3 mg / 0.5 (3 ml) UD IH SCH ×3 (07:05→19:11)
[2017-01-16] MEDS: (Novolog) Insulin Aspart, Recombinant 100 u/ml 10 ml vial SC SCH ×4 (08:28→21:41)
[2017-01-16] MEDS ORDERED: QUINIDINE PO SCH (10:00)
[2017-01-16] MEDS ORDERED: cefTRIAXone IV 1 gm in Dextros 50 ML BAG IVPB SCH (10:00)
[2017-01-16] MEDS ORDERED: DEXTROMETHORPHAN HBR PO SCH (10:00)
[2017-01-16] MEDS: Pantoprazole 20 mg EC Tab PO SCH (10:17)
[2017-01-16] MEDS: cefTRIAXone IV 1 gm in Dextros 50 ML IVPB SCH (10:18)
[2017-01-16] MEDS: Enoxaparin 30 mg Syringe SC SCH (10:18)
[2017-01-16] MEDS: Azithromycin 500 MG in Sodium Chloride 0.9% 250 ML IVPB SCH (11:00)
--- NOTE | 2017-01-16 12:19 | CT ---
PROCEDURE: CT Chest without contrast HISTORY: pna COMPARISON: No prior similar study available for comparison. The patient had CT of the abdomen and pelvis on 02/19/2015 and 01/22/2016 TECHNIQUE: Contiguous axial images were obtained through the chest without intravenous contrast enhancement. Sagittal and coronal reconstructions were performed. Radiation dose (DLP): 701.54 mGy-cm. This CT exam was performed using one or more of the following dose reduction techniques: Automated exposure control, adjustment of the mA and/or kV according to patient size, and/or use of iterative reconstruction technique. FINDINGS: LUNGS: There are foci of ground-glass opacities associated with septal thickening seen more prominent at the mid and lower portion of the lungs. Scattered is small cystic formation seen at the peripheral portion of the mid and lower portion of the lungs suggestive of mild fibrotic changes/ lung fibrosis. There are mild bronchiectasis changes seen at the central and lower portion of the lungs. There is heterogeneous 10 millimeter nodule at the right middle lobe. There is also 12 millimeter nodule at the right lung base. MEDIASTINUM: The thoracic aorta is slightly ectatic without evidence of aneurysm. The heart is moderately enlarged. Coarse calcifications seen at the mitral valve. The main pulmonary artery is mildly to moderately enlarged. No significant lymphadenopathy seen. Slightly prominent AP window and right precarinal lymph nodes are noted. PLEURA: Mild foci of pleural thickening seen without evidence of significant pleural effusion or pneumothorax. BONES: Diffuse osteopenia and degenerative changes more prominent at the thoracic spine. UPPER ABDOMEN: No evidence of acute pathology in the visualized portion of the upper abdomen P OTHER FINDINGS: None. IMPRESSION: No definite CT evidence of pneumonia. Scattered foci of ground-glass opacities associated with interstitial septal thickening and reticular opacities more prominent at the mid and lower portion of the lungs. Scattered foci of small cystic formation also prominent at the mid and lower portion of the lungs associated with bronchiectasis and suggestive of mild pulmonary fibrosis. Cardiomegaly. Two heterogeneous solid nodule seen at the right middle and right lower lobe with the largest nodule at the right lower lobe measures 1.2 centimeter. The right lower lobe nodule is seen in retrospect in the previous CT of the abdomen and pelvis dated 02/19/2015. [id number] enlarged pulmonary artery suggestive of pulmonary hypertension.
--- NOTE | 2017-01-16 13:37 | CARD ---
APPROVED REPORT EKG Measurement Heart [id number] [place] [id number] <Conclusion> Sinus rhythm with premature atrial complexes Right bundle branch block Left anterior fascicular block Bifascicular block Minimal voltage criteria for LVH, may be normal variant Septal infarct, age undetermined Abnormal ECG
--- NOTE | 2017-01-16 15:18 | CP.PCM.PN ---
Subjective - Date & Time of Evaluation Date of Evaluation: 01/16/17 Time of Evaluation: 20:00 - Subjective Subjective: Pt seen and examined, c/o dysuria, cough and shortness of breath improved Objective - Vital Signs/Intake and Output Vital Signs (last 24 hours): Temp Pulse Resp BP Pulse Ox 97.3 F L 71 18 133/78 100 01/16/17 07:25 01/16/17 07:25 01/16/17 07:25 01/16/17 07:25 01/16/17 07:25 Intake and Output: 01/16/17 01/16/17 06:59 18:59 Intake Total 100 Balance 100 - Medications Medications: Current Medications Acetaminophen (Tylenol 325mg Tab) 650 mg PO Q4 PRN PRN Reason: Fever >100.4 F Acetaminophen/Codeine Phosphate (Tylenol/Codeine 300 Mg/30 Mg) 2 ea PO Q4H [facility] Last Admin: 01/16/17 11:30 Dose: Not Given Al Hydrox/Mg Hydrox/Simethicone (Maalox Plus 30 Ml) 30 ml PO Q6 [facility] Last Admin: 01/16/17 12:40 Dose: 30 ml Albuterol/Ipratropium (Duoneb 3 Mg/0.5 Mg (3 Ml) Ud) 3 ml IH RQ6 [facility] Last Admin: 01/16/17 13:07 Dose: Not Given Alprazolam (Xanax) 0.5 mg PO DAILY [facility] Last Admin: 01/16/17 10:22 Dose: 0.5 mg Docusate Sodium (Colace) 200 mg PO HS [facility] Last Admin: 01/15/17 22:07 Dose: Not Given Enoxaparin Sodium (Lovenox) 30 mg SC DAILY [facility] Last Admin: 01/16/17 10:18 Dose: 30 mg Home Med (Dextromethorphan Hbr/Quinidine [Nuedexta 20-10 Mg Capsule]) 1 cap PO BID [facility] Azithromycin 500 mg/ Sodium (Chloride) 250 mls @ 250 mls/hr IVPB DAILY [facility] Last Admin: 01/16/17 11:00 Dose: 250 mls/hr Ceftriaxone Sodium (Rocephin Iv 1 Gm Duplex) 50 mls @ 100 mls/hr IVPB DAILY [facility] Last Admin: 01/16/17 10:18 Dose: 100 mls/hr Insulin Aspart (Novolog) 0 unit SC ACHS [facility] PRN Reason: Protocol Last Admin: 01/16/17 12:25 Dose: 2 unit Losartan Potassium (Cozaar) 25 mg PO DAILY [facility] Last Admin: 01/16/17 10:17 Dose: 25 mg Magnesium Hydroxide (Milk Of Magnesia) 30 ml PO DAILY PRN Memantine (Namenda) 10 mg PO BID [facility] Last Admin: 01/16/17 10:17 Dose: 10 mg Mirtazapine (Remeron) 15 mg PO HS [facility] Last Admin: 01/15/17 22:07 Dose: Not Given Pantoprazole Sodium (Protonix Ec Tab) 20 mg PO DAILY [facility] Last Admin: 01/16/17 10:17 Dose: 20 mg Zolpidem Tartrate (Ambien) 5 mg PO HS PRN PRN Reason: Insomnia - Labs Labs: 01/15/17 17:37 01/15/17 17:37 PT 13.8 SECONDS (9.7-12.2) H 01/15/17 17:37 INR 1.2 01/15/17 17:37 APTT 25 SECONDS (21-34) 01/15/17 17:37 - Constitutional Appears: No Acute Distress - Head Exam Head Exam: ATRAUMATIC, NORMAL INSPECTION, NORMOCEPHALIC - Eye Exam Eye Exam: EOMI, Normal appearance, PERRL Pupil Exam: NORMAL ACCOMODATION, PERRL - Respiratory Exam Respiratory Exam: Clear to Ausculation Bilateral, NORMAL BREATHING PATTERN - Cardiovascular Exam Cardiovascular Exam: REGULAR RHYTHM, +S1, +S2. absent: Murmur - GI/Abdominal Exam GI & Abdominal Exam: Soft, Normal Bowel Sounds. absent: Tenderness Assessment and Plan (1) Fever Status: Acute (2) Abdominal pain Status: Acute (3) Diabetes Status: Acute (4) COPD exacerbation Status: Chronic
[2017-01-17] MEDS: Albuterol-Ipratrop 3 mg / 0.5 (3 ml) UD IH SCH ×4 (01:03→19:40)
[2017-01-17] MEDS: Acetaminophen-Codeine 300/30 mg Tab PO SCH ×3 (01:25→09:57)
[2017-01-17] MEDS: Alum-Mag Hydrox-Simethicone Susp (30 mL) PO SCH ×4 (05:21→23:38)
[2017-01-17] MEDS: (Novolog) Insulin Aspart, Recombinant 100 u/ml 10 ml vial SC SCH ×4 (08:25→22:39)
[2017-01-17] MEDS: cefTRIAXone IV 1 gm in Dextros 50 ML IVPB SCH (09:56)
[2017-01-17] MEDS: Enoxaparin 30 mg Syringe SC SCH (09:59)
[2017-01-17] MEDS: Pantoprazole 20 mg EC Tab PO SCH (10:00)
[2017-01-17] MEDS: Azithromycin 500 MG in Sodium Chloride 0.9% 250 ML IVPB SCH (10:55)
[2017-01-17 14:14] LABS: CHLORIDE 102 mmol/L (98-107); SODIUM 137 mmol/L (132-148)
[2017-01-17 14:15] LABS: POTASSIUM 3.9 mmol/L (3.6-5.2)
[2017-01-17 14:17] LABS: GFR AFRICAN-AMERICAN > 60
[2017-01-17 14:18] LABS: BLOOD UREA NITROGEN 21 mg/dL (7-17); CALCIUM 8.4 mg/dl (8.6-10.4); CARBON DIOXIDE 26 mmol/L (22-30); GLUCOSE,RANDOM 154 mg/dL (65-105)
[2017-01-17 14:27] LABS: EOS # 0.6 K/uL (0.0-0.7); HEMATOCRIT 34.5 % (34.0-47.0); WHITE BLOOD COUNT 9.2 K/uL (4.8-10.8)
[2017-01-17 14:43] LABS: BASO % 0.5 % (0.0-2.0); EOS % 6.2 % (0.0-4.0); MEAN CELL VOLUME 90.4 fL (81.0-99.0); MEAN CORPUSCULAR HEMOGLOBIN 29.5 pg (27.0-31.0); MEAN CORPUSCULAR HGB CONC 32.7 g/dL (33.0-37.0); MEAN PLATELET VOLUME 9.8 fL (7.2-11.7); MONO # 0.9 K/uL (0.0-0.8); MONO % 9.3 % (0.0-10.0); NRBC % 0.1 % (0.0-2.0); RED CELL DISTRIBUTION WIDTH 13.3 % (11.5-14.5)
[2017-01-17 16:30] VITALS: RESP 20
[2017-01-17] MEDS ORDERED: Acetaminophen-Codeine 300/30 mg Tab PO PRN (16:30)
--- NOTE | 2017-01-17 23:07 | CP.PCM.PN ---
Subjective - Date & Time of Evaluation Date of Evaluation: 01/17/17 Time of Evaluation: 18:00 - Subjective Subjective: Pt seen and examined at bedside, feeling better Objective - Vital Signs/Intake and Output Vital Signs (last 24 hours): Temp Pulse Resp BP Pulse Ox 99 F 78 20 98/60 L 96 01/17/17 15:00 01/17/17 16:00 01/17/17 15:00 01/17/17 15:00 01/17/17 15:00 Intake and Output: 01/17/17 01/18/17 18:59 06:59 Intake Total 950 Balance 950 - Medications Medications: Current Medications Acetaminophen (Tylenol 325mg Tab) 650 mg PO Q4 PRN PRN Reason: Fever >100.4 F Acetaminophen/Codeine Phosphate (Tylenol/Codeine 300 Mg/30 Mg) 2 ea PO Q4H PRN PRN Reason: Pain, severe (8-10) Al Hydrox/Mg Hydrox/Simethicone (Maalox Plus 30 Ml) 30 ml PO Q6 [facility] Last Admin: 01/17/17 18:20 Dose: 30 ml Albuterol/Ipratropium (Duoneb 3 Mg/0.5 Mg (3 Ml) Ud) 3 ml IH RQ6 [facility] Last Admin: 01/17/17 19:40 Dose: 3 ml Alprazolam (Xanax) 0.5 mg PO DAILY [facility] Last Admin: 01/17/17 10:00 Dose: 0.5 mg Docusate Sodium (Colace) 200 mg PO HS [facility] Last Admin: 01/17/17 21:56 Dose: 200 mg Enoxaparin Sodium (Lovenox) 30 mg SC DAILY [facility] Last Admin: 01/17/17 09:59 Dose: 30 mg Azithromycin 500 mg/ Sodium (Chloride) 250 mls @ 250 mls/hr IVPB DAILY [facility] Last Admin: 01/17/17 10:55 Dose: 250 mls/hr Ceftriaxone Sodium (Rocephin Iv 1 Gm Duplex) 50 mls @ 100 mls/hr IVPB DAILY [facility] Last Admin: 01/17/17 09:56 Dose: 100 mls/hr Ampicillin 2 gm/ Sodium (Chloride) 100 mls @ 50 mls/hr IVPB Q6H [facility] Insulin Aspart (Novolog) 0 unit SC ACHS [place] PRN Reason: Protocol Last Admin: 01/17/17 22:39 Dose: Not Given Losartan Potassium (Cozaar) 25 mg PO DAILY [facility] Last Admin: 01/17/17 09:59 Dose: 25 mg Magnesium Hydroxide (Milk Of Magnesia) 30 ml PO DAILY PRN Memantine (Namenda) 10 mg PO BID [facility] Last Admin: 01/17/17 18:20 Dose: 10 mg Mirtazapine (Remeron) 15 mg PO HS [facility] Last Admin: 01/17/17 21:57 Dose: 15 mg Pantoprazole Sodium (Protonix Ec Tab) 20 mg PO DAILY [facility] Last Admin: 01/17/17 10:00 Dose: 20 mg Zolpidem Tartrate (Ambien) 5 mg PO HS PRN PRN Reason: Insomnia - Labs Labs: 01/17/17 13:52 01/17/17 13:52 PT 13.8 SECONDS (9.7-12.2) H 01/15/17 17:37 INR 1.2 01/15/17 17:37 APTT 25 SECONDS (21-34) 01/15/17 17:37 - Constitutional Appears: No Acute Distress - Head Exam Head Exam: ATRAUMATIC, NORMAL INSPECTION, NORMOCEPHALIC - Eye Exam Eye Exam: EOMI, Normal appearance, PERRL Pupil Exam: NORMAL ACCOMODATION, PERRL - Respiratory Exam Respiratory Exam: Decreased Breath Sounds, Clear to Ausculation Bilateral, Rales - Cardiovascular Exam Cardiovascular Exam: REGULAR RHYTHM, +S1, +S2. absent: Murmur - GI/Abdominal Exam GI & Abdominal Exam: Soft, Normal Bowel Sounds. absent: Tenderness - Neurological Exam Neurological Exam: Alert, Awake, CN II-XII Intact, Normal Gait, Oriented x3 - Psychiatric Exam Psychiatric exam: Normal Affect, Normal Mood Assessment and Plan (1) Fever Status: Acute (2) Abdominal pain Status: Acute (3) Diabetes Status: Acute (4) COPD exacerbation Status: Chronic
[2017-01-18] MEDS: Albuterol-Ipratrop 3 mg / 0.5 (3 ml) UD IH SCH ×3 (01:13→13:13)
[2017-01-18] MEDS: Alum-Mag Hydrox-Simethicone Susp (30 mL) PO SCH ×2 (05:34→11:18)
[2017-01-18] MEDS: (Novolog) Insulin Aspart, Recombinant 100 u/ml 10 ml vial SC SCH ×2 (08:02→12:04)
[2017-01-18] MEDS: cefTRIAXone IV 1 gm in Dextros 50 ML IVPB SCH (09:28)
[2017-01-18] MEDS: Pantoprazole 20 mg EC Tab PO SCH (09:29)
[2017-01-18] MEDS: Enoxaparin 30 mg Syringe SC SCH ×2 (09:29→09:46)
[2017-01-18] MEDS: Azithromycin 500 MG in Sodium Chloride 0.9% 250 ML IVPB SCH (10:35)
--- NOTE | 2017-01-18 13:28 | CP.PCM.PN ---
Subjective - Date & Time of Evaluation Date of Evaluation: 01/18/17 Time of Evaluation: 10:25 - Subjective Subjective: Patient seen today , awake, alert , seems comfortable, c/o pain to the left knee, denies any abdominal pain, N/V/D . dysuria a febrile Objective - Vital Signs/Intake and Output Vital Signs (last 24 hours): Temp Pulse Resp BP Pulse Ox 98.6 F 72 20 126/78 97 01/18/17 07:20 01/18/17 07:20 01/18/17 07:20 01/18/17 07:20 01/18/17 07:20 Intake and Output: 01/18/17 01/18/17 06:59 18:59 Intake Total 420 Balance 420 - Medications Medications: Current Medications Acetaminophen (Tylenol 325mg Tab) 650 mg PO Q4 PRN PRN Reason: Fever >100.4 F Acetaminophen/Codeine Phosphate (Tylenol/Codeine 300 Mg/30 Mg) 2 ea PO Q4H PRN PRN Reason: Pain, severe (8-10) Last Admin: 01/18/17 11:09 Dose: 2 ea Al Hydrox/Mg Hydrox/Simethicone (Maalox Plus 30 Ml) 30 ml PO Q6 [facility] Last Admin: 01/18/17 11:18 Dose: 30 ml Albuterol/Ipratropium (Duoneb 3 Mg/0.5 Mg (3 Ml) Ud) 3 ml IH RQ6 [facility] Last Admin: 01/18/17 13:13 Dose: 3 ml Alprazolam (Xanax) 0.5 mg PO DAILY [facility] Last Admin: 01/18/17 09:29 Dose: 0.5 mg Docusate Sodium (Colace) 200 mg PO HS [facility] Last Admin: 01/17/17 21:56 Dose: 200 mg Enoxaparin Sodium (Lovenox) 30 mg SC DAILY [facility] Last Admin: 01/18/17 09:46 Dose: Not Given Azithromycin 500 mg/ Sodium (Chloride) 250 mls @ 250 mls/hr IVPB DAILY [facility] Last Admin: 01/18/17 10:35 Dose: 250 mls/hr Ceftriaxone Sodium (Rocephin Iv 1 Gm Duplex) 50 mls @ 100 mls/hr IVPB DAILY [facility] Last Admin: 01/18/17 09:28 Dose: 100 mls/hr Ampicillin 2 gm/ Sodium (Chloride) 100 mls @ 50 mls/hr IVPB Q6H [facility] Last Admin: 01/18/17 12:40 Dose: 50 mls/hr Insulin Aspart (Novolog) 0 unit SC ACHS [facility] PRN Reason: Protocol Last Admin: 01/18/17 12:04 Dose: Not Given Losartan Potassium (Cozaar) 25 mg PO DAILY [facility] Last Admin: 01/18/17 09:29 Dose: 25 mg Magnesium Hydroxide (Milk Of Magnesia) 30 ml PO DAILY PRN Memantine (Namenda) 10 mg PO BID [facility] Last Admin: 01/18/17 09:29 Dose: 10 mg Mirtazapine (Remeron) 15 mg PO HS [facility] Last Admin: 01/17/17 21:57 Dose: 15 mg Pantoprazole Sodium (Protonix Ec Tab) 20 mg PO DAILY [facility] Last Admin: 01/18/17 09:29 Dose: 20 mg Zolpidem Tartrate (Ambien) 5 mg PO HS PRN PRN Reason: Insomnia - Labs Labs: 01/17/17 13:52 01/17/17 13:52 PT 13.8 SECONDS (9.7-12.2) H 01/15/17 17:37 INR 1.2 01/15/17 17:37 APTT 25 SECONDS (21-34) 01/15/17 17:37 - Constitutional Appears: Well, No Acute Distress - Respiratory Exam Respiratory Exam: Clear to Ausculation Bilateral, NORMAL BREATHING PATTERN - Cardiovascular Exam Cardiovascular Exam: REGULAR RHYTHM, +S1, +S2 - GI/Abdominal Exam GI & Abdominal Exam: Soft, Normal Bowel Sounds - Neurological Exam Neurological Exam: Alert, Awake Assessment and Plan - Assessment and Plan (Free Text) Assessment: A/P 86 y/o Female with PMHx Anxiety, Arthritis, Asthma, COPD, Dementia, Diabetes, Emphysema, HTN admitted for fever, abdominal pain and UTI a febrile for 48 hrs urine culture - positive for E coli an d entereococus and sensitive to rocephin an d ampicillin and started on 01/17 BLOOD CULTURE- NEGATIVE X 48 HRS labs- WNL D/W Dr. Fay, stable for discharge back to [facility] today and Dr. Fay will follow the patient at [facility] will continue 5 more days of ampicillin and keflex Discharge plan discussed with patient daughter at bedside
[2017-01-18 16:04] VITALS: PULSE 77
[2017-01-18 16:05] VITALS: BP 114/66; TEMP 98; O2SAT 98
--- NOTE | 2017-01-18 23:52 | CP.PCM.DIS ---
Provider - Provider Date of Admission: 01/15/17 18:24 Attending physician: John Fay MD Time Spent in preparation of Discharge (in minutes): 30 Diagnosis - Discharge Diagnosis (1) Fever Status: Acute (2) Abdominal pain Status: Acute (3) Diabetes Status: Acute (4) COPD exacerbation Status: Chronic Hospital Course - Lab Results Lab Results: Micro Results 01/15/17 18:00 Blood-Venous Blood Culture - Preliminary NO GROWTH AFTER 3 DAYS 01/15/17 17:30 Blood-Venous Blood Culture - Preliminary NO GROWTH AFTER 3 DAYS 01/15/17 17:31 Urine,Clean Catch Urine Culture - Final Escherichia Coli Enterococcus Faecalis Most Recent Lab Values WBC 9.2 K/uL (4.8-10.8) 01/17/17 13:52 RBC 3.82 Mil/uL (3.80-5.20) 01/17/17 13:52 Hgb 11.3 g/dL (11.0-16.0) D 01/17/17 13:52 Hct 34.5 % (34.0-47.0) 01/17/17 13:52 MCV 90.4 fL (81.0-99.0) 01/17/17 13:52 MCH 29.5 pg (27.0-31.0) 01/17/17 13:52 MCHC 32.7 g/dL (33.0-37.0) L 01/17/17 13:52 RDW 13.3 % (11.5-14.5) 01/17/17 13:52 Plt Count 230 K/uL (130-400) 01/17/17 13:52 MPV 9.8 fL (7.2-11.7) 01/17/17 13:52 Neut % (Auto) 62.0 % (50.0-75.0) 01/17/17 13:52 Lymph % (Auto) 22.0 % (20.0-40.0) 01/17/17 13:52 [place] % (Auto) 9.3 % (0.0-10.0) 01/17/17 13:52 Eos % (Auto) 6.2 % (0.0-4.0) H 01/17/17 13:52 Baso % (Auto) 0.5 % (0.0-2.0) 01/17/17 13:52 Neut # 5.7 K/uL (1.8-7.0) 01/17/17 13:52 Lymph # 2.0 K/uL (1.0-4.3) 01/17/17 13:52 [place] # 0.9 K/uL (0.0-0.8) H 01/17/17 13:52 Eos # 0.6 K/uL (0.0-0.7) 01/17/17 13:52 Baso # 0.0 K/uL (0.0-0.2) 01/17/17 13:52 PT 13.8 SECONDS (9.7-12.2) H 01/15/17 17:37 INR 1.2 01/15/17 17:37 APTT 25 SECONDS (21-34) 01/15/17 17:37 pO2 48 mm/Hg (30-55) 01/15/17 17:48 VBG pH 7.46 (7.32-7.43) H 01/15/17 17:48 VBG pCO2 41 mmHg (40-60) 01/15/17 17:48 VBG HCO3 28.4 mmol/L 01/15/17 17:48 VBG Total CO2 30.5 mmol/L (22-28) H 01/15/17 17:48 VBG O2 Sat (Calc) 90.6 % (40-65) H 01/15/17 17:48 VBG Base Excess 4.9 mmol/L (0.0-2.0) H 01/15/17 17:48 VBG Potassium 4.3 mmol/L (3.6-5.2) 01/15/17 17:48 Sodium 134.0 mmol/l (132-148) 01/15/17 17:48 Chloride 101.0 mmol/L (98-107) 01/15/17 17:48 Glucose 202 mg/dl (65-105) H 01/15/17 17:48 Lactate 1.1 mmol/L (0.7-2.1) 01/15/17 17:48 Sodium 137 mmol/L (132-148) 01/17/17 13:52 Potassium 3.9 mmol/L (3.6-5.2) 01/17/17 13:52 Chloride 102 mmol/L (98-107) 01/17/17 13:52 Carbon Dioxide 26 mmol/L (22-30) 01/17/17 13:52 Anion Gap 12 (10-20) 01/17/17 13:52 BUN 21 mg/dL (7-17) H 01/17/17 13:52 Creatinine 0.7 mg/dL (0.7-1.2) 01/17/17 13:52 Est GFR ( Amer) > 60 01/17/17 13:52 Est GFR (Non-Af Amer) > 60 01/17/17 13:52 POC Glucose (mg/dL) 167 mg/dL (65-110) H 01/18/17 16:47 Random Glucose 154 mg/dL (65-105) H 01/17/17 13:52 Calcium 8.4 mg/dl (8.6-10.4) L 01/17/17 13:52 Total Bilirubin 0.8 mg/dL (0.2-1.3) 01/15/17 17:37 AST 57 U/L (14-36) H 01/15/17 17:37 ALT 61 U/L (9-52) H D 01/15/17 17:37 Alkaline Phosphatase 130 U/L (38-126) H 01/15/17 17:37 Total Protein 8.2 g/dL (6.3-8.3) 01/15/17 17:37 Albumin 3.8 g/dL (3.5-5.0) 01/15/17 17:37 Globulin 4.4 gm/dL (2.2-3.9) H 01/15/17 17:37 Albumin/Globulin Ratio 0.9 (1.0-2.1) L 01/15/17 17:37 Lipase 39 U/L (23-300) 01/15/17 17:37 Venous Blood Potassium 4.3 mmol/L (3.6-5.2) 01/15/17 17:48 Urine Color Yellow (YELLOW) 01/15/17 18:23 Urine Clarity Hazy (Clear) 01/15/17 18:23 Urine pH 5.0 (5.0-8.0) 01/15/17 18:23 Ur Specific [place] 1.011 (1.003-1.030) 01/15/17 18:23 Urine Protein 1+ mg/dL (NEGATIVE) H 01/15/17 18:23 Urine Glucose (UA) Normal mg/dL (Normal) 01/15/17 18:23 Urine Ketones Negative mg/dL (NEGATIVE) 01/15/17 18:23 Urine Blood 2+ (NEGATIVE) H 01/15/17 18:23 Urine Nitrate Positive (NEGATIVE) H 01/15/17 18:23 Urine Bilirubin Negative (NEGATIVE) 01/15/17 18:23 Urine Urobilinogen Normal mg/dL (0.2-1.0) 01/15/17 18:23 Ur Leukocyte Esterase 3+ [place]/uL (Negative) H 01/15/17 18:23 Urine WBC (Auto) 161 /hpf (0-5) H 01/15/17 18:23 Urine RBC (Auto) 12 /hpf (0-3) H 01/15/17 18:23 Urine WBC Clumps (Auto) Mod /hpf (NONE) H 01/15/17 18:23 Ur Squamous Epith Cells < 1 /hpf (0-5) 01/15/17 18:23 Ur Transition Epith Cell < 1 /hpf (0-3) 01/15/17 18:23 Urine Bacteria Many (<OCC) H 01/15/17 18:23 - Hospital Course Hospital Course: A/P 86 y/o Female with PMHx Anxiety, Arthritis, Asthma, COPD, Dementia, Diabetes, Emphysema, HTN admitted for fever, abdominal pain and UTI a febrile for 48 hrs urine culture - positive for E coli an d entereococus and sensitive to rocephin an d ampicillin and started on 01/17 BLOOD CULTURE- NEGATIVE X 48 HRS labs- WNL Pt is stable for discharge back to [facility] today and I will follow the patient at [facility] will continue 5 more days of ampicillin and keflex Discharge plan discussed with patient daughter at bedside Discharge Exam - Head Exam Head Exam: ATRAUMATIC, NORMAL INSPECTION, NORMOCEPHALIC - Eye Exam Eye Exam: EOMI, Normal appearance, PERRL Pupil Exam: NORMAL ACCOMODATION, PERRL - ENT Exam ENT Exam: Mucous Membranes Moist - Respiratory Exam Respiratory Exam: Clear to PA & Lateral, NORMAL BREATHING PATTERN - Cardiovascular Exam Cardiovascular Exam: REGULAR RHYTHM, +S1, +S2 - GI/Abdominal Exam GI & Abdominal Exam: Normal Bowel Sounds Discharge Plan - Discharge Medications Prescriptions: Ampicillin Trihydrate 500 mg PO QID #20 capsule Cephalexin [Keflex] 500 mg PO BID #10 capsule - Follow Up Plan Condition: GUARDED Disposition: REHAB FACILITY/REHAB UNIT Instructions: Heart Failure (DC), Heart Healthy Diet (DC), Diabetic Foot Care ( DC), Basic Carbohydrate Counting (DC), Meal Planning with the Plate Method (DC) , Meal Planning with Diabetes Exchanges (DC), Pneumonia (DC) Additional Instructions: PLEASE CALL DR. FAY UPON PATIENT ARRIVAL TO THE FACILITY PLEASE CONTINUE ANTIBIOTICS FOR 5 MORE DAYS (ampicillin and keflex) PLEASE REPEAT CBC, BMP , NEXT SATURDAY CONTINUE ALL MEIDCATIONS PER MED. REC. Referrals: John Fay MD [Staff Provider] -
== END 2017-01-18 18:10 | DRG 190 ==
LOC: C.ER 17:05 → C.6T 18:24
PROVIDERS: ADMIT Internal Medicine; ATTEND Internal Medicine
DX: J44.0 Chronic obstructive pulmonary disease with (acute) lower respiratory infection (principal); J18.9 Pneumonia, unspecified organism; I11.0 Hypertensive heart disease with heart failure; F03.90 Unspecified dementia, unspecified severity, without behavioral disturbance, psychotic disturbance, mood disturbance, and anxiety; N39.0 Urinary tract infection, site not specified; I50.9 Heart failure, unspecified; E11.9 Type 2 diabetes mellitus without complications; B95.2 Enterococcus as the cause of diseases classified elsewhere; F32.9 Major depressive disorder, single episode, unspecified; J44.1 Chronic obstructive pulmonary disease with (acute) exacerbation; B96.20 Unspecified Escherichia coli [E. coli] as the cause of diseases classified elsewhere; M19.90 Unspecified osteoarthritis, unspecified site; F41.9 Anxiety disorder, unspecified; E78.00 Pure hypercholesterolemia, unspecified; K21.0 Gastro-esophageal reflux disease with esophagitis; Z79.899 Other long term (current) drug therapy; Z85.3 Personal history of malignant neoplasm of breast

== ENCOUNTER 2017-07-09 13:28 | Observation (INO) | payer MEDICARE, MEDICAID ==
[2017-07-09 13:28] VITALS: BMI 35.1
[2017-07-09 15:12] LABS: BASO # 0.1 K/uL (0.0-0.2); BASO % 0.8 % (0.0-2.0); EOS # 0.3 K/uL (0.0-0.7); EOS % 2.7 % (0.0-4.0); HEMOGLOBIN 13.1 g/dL (11.0-16.0); LYMPH # 1.5 K/uL (1.0-4.3); LYMPH % 15.2 % (20.0-40.0); MEAN CELL VOLUME 90.4 fL (81.0-99.0); MEAN CORPUSCULAR HEMOGLOBIN 31.2 pg (27.0-31.0); MEAN CORPUSCULAR HGB CONC 34.4 g/dL (33.0-37.0); MEAN PLATELET VOLUME 9.3 fL (7.2-11.7); MONO # 0.6 K/uL (0.0-0.8); MONO % 6.3 % (0.0-10.0); NEUT # 7.5 K/uL (1.8-7.0); RBC 4.21 Mil/uL (3.80-5.20); RED CELL DISTRIBUTION WIDTH 13.5 % (11.5-14.5)
[2017-07-09 15:22] LABS: INR 1.2; PROTHROMBIN TIME 13.3 SECONDS (9.7-12.2)
[2017-07-09 15:31] LABS: ALB/GLOB RATIO 0.7 (1.0-2.1); ALBUMIN 3.7 g/dL (3.5-5.0); ALT/SGPT 15 U/L (9-52); AST/SGOT 29 U/L (14-36); BLOOD UREA NITROGEN 25 mg/dL (7-17); CALCIUM 9.1 mg/dl (8.6-10.4); GFR AFRICAN-AMERICAN > 60; GFR NON-AFRICAN AMERICAN > 60
[2017-07-09] MEDS ORDERED: ceFAZolin 1 gm FROZEN Premix 1 GM/50 ML ML IVPB ONE (16:49)
--- NOTE | 2017-07-09 17:29 | CT ---
PROCEDURE: CT HEAD WITHOUT CONTRAST. HISTORY: Inabilitiy to talk x 1 month COMPARISON: 08/24/2016 TECHNIQUE: Axial computed tomography images were obtained through the head/brain without intravenous contrast. Radiation dose: Total exam DLP = 1095.14 mGy-cm. This CT exam was performed using one or more of the following dose reduction techniques: Automated exposure control, adjustment of the mA and/or kV according to patient size, and/or use of iterative reconstruction technique. FINDINGS: HEMORRHAGE: No intracranial hemorrhage. BRAIN: No mass effect or edema. Mild to moderate diffuse atrophy. Moderate patchy periventricular and deep white matter lucency consistent age-related microvascular ischemic change. No evidence of acute infarct. VENTRICLES: Unremarkable. No hydrocephalus. CALVARIUM: Unremarkable. PARANASAL SINUSES: Unremarkable as visualized. No significant inflammatory changes. MASTOID AIR CELLS: Unremarkable as visualized. No inflammatory changes. OTHER FINDINGS: None. IMPRESSION: No intracranial mass, hemorrhage or evidence of acute infarct. Age related atrophy and chronic white matter ischemic change.
--- NOTE | 2017-07-09 17:43 | C.PDOC ---
History Of Present Illness Pt was sent in from Dr. Samuels's office for admission due to left upper back cellulitis/abscess. Time Seen by Provider: 07/09/17 14:30 Chief Complaint (Nursing): Abnormal Skin Integrity History Per: Patient, Family Onset/Duration Of Symptoms: Days Current Symptoms Are (Timing): Still Present Location Of Injury: Left: Back (upper) Quality Of Symptoms: Painful, Swollen, Draining Severity: Moderate Additional History Per: Prior Records Past Medical History Reviewed: Historical Data, Nursing Documentation, Vital Signs Vital Signs: Last Vital Signs Temp 98.4 F 07/09/17 14:14 Pulse 103 H 07/09/17 14:14 Resp 20 07/09/17 14:14 BP 143/74 07/09/17 14:14 Pulse Ox 100 07/09/17 14:14 - Medical History PMH: Anxiety, Arthritis, Asthma, CHF, COPD, Dementia, Depression, Diabetes, Emphysema, HTN, Hypercholesterolemia, Chronic Pain (Left Knee) Family History: States: Unknown Family Hx - Social History Hx Tobacco Use: No Hx Alcohol Use: No Hx Substance Use: No - Immunization History Hx Tetanus Toxoid Vaccination: No Hx Influenza Vaccination: Yes Hx Pneumococcal Vaccination: Yes Review Of Systems Review Of Systems: ROS cannot be obtained secondary to pt's inabilty to answer questions. Neurological: Positive for: Change in Speech (inability to talk for around 1 month.) Physical Exam - Physical Exam Appears: No Acute Distress, Chronically Ill Skin: Warm, Dry, Other (Left upper back skin lesion with some tenderness and erythema. ) Head: Atraumatic, Normacephalic Eye(s): bilateral: PERRL, EOMI Neck: Normal ROM, Supple Cardiovascular: Rhythm Regular Respiratory: Normal Breath Sounds, No Accessory Muscle Use Gastrointestinal/Abdominal: Soft, No Tenderness Back: Other (Stage 1 sacral ulcer) Extremity: Normal ROM Neurological/Psych: No Normal Speech (nonverbal), Normal Motor, Normal Sensation ED Course And Treatment - Laboratory Results Result Diagrams: 07/09/17 15:07 07/09/17 15:07 O2 Sat by Pulse Oximetry: 100 Pulse Ox Interpretation: Normal - CT Scan/US CT head Other Rad Studies (CT/US): Read By Radiologist, Radiology Report Reviewed CT/US Interpretation: IMPRESSION: No intracranial mass, hemorrhage or evidence of acute infarct. Age related atrophy and chronic white matter ischemic change. Disposition Discussed With : John Fay Comment: He accepted pt on his service. Doctor Will See Patient In The: Hospital Counseled Patient/Family Regarding: Studies Performed, Diagnosis - Disposition Disposition: HOSPITALIZED Disposition Time: 17:44 Condition: FAIR - Clinical Impression Clinical Impression: Abscess or cellulitis of back, Unable to talk
[2017-07-09] MEDS ORDERED: Ipratropium 0.02% Inhal Soln (0.5 mg/2.5 ml) UD IH PRN (19:12)
[2017-07-09] MEDS ORDERED: Magnesium Hydroxide Susp 30 ml UD PO PRN (19:12)
--- NOTE | 2017-07-09 23:01 | CP.PCM.HP ---
History of Present Illness - History of Present Illness History of Present Illness: History Of Present Illness Pt was sent in from Dr. Samuels's office for admission due to left upper back cellulitis/abscess. Time Seen by Provider: 07/09/17 14:30 Chief Complaint (Nursing): Abnormal Skin Integrity Past Patient History - Past Medical History & Family History Past Medical History?: Yes - Past Social History Smoking Status: Never Smoked - CARDIAC Hx Congestive Heart Failure: Yes Hx Hypercholesterolemia: Yes Hx Hypertension: Yes - PULMONARY Hx Asthma: Yes Hx Chronic Obstructive Pulmonary Disease (COPD): Yes Hx Emphysema: Yes - NEUROLOGICAL Hx Dementia: Yes - HEENT Hx HEENT Problems: No - RENAL Hx Chronic Kidney Disease: No - ENDOCRINE/METABOLIC Hx Endocrine Disorders: Yes Hx Diabetes Mellitus Type 2: Yes - HEMATOLOGICAL/ONCOLOGICAL Hx Blood Disorders: Yes Hx Cancer: Yes (RIGHT BREAST CA) - INTEGUMENTARY Hx Dermatological Problems: No - MUSCULOSKELETAL/RHEUMATOLOGICAL Hx Arthritis: Yes - GASTROINTESTINAL Hx Gastrointestinal Disorders: Yes Hx Gastroesophageal Reflux: Yes Other/Comment: Esophagitis - GENITOURINARY/GYNECOLOGICAL Hx Genitourinary Disorders: No - PSYCHIATRIC Hx Anxiety: Yes Hx Depression: Yes Hx Substance Use: No - SURGICAL HISTORY Hx Surgeries: Yes Hx Mastectomy: Yes (Right mastectomy) Hx Orthopedic Surgery: Yes (left knee) - ANESTHESIA Hx Anesthesia: Yes Hx Anesthesia Reactions: No Hx Malignant Hyperthermia: No Meds Allergies/Adverse Reactions: Allergies Allergy/AdvReac Type Severity Reaction Status Date / Time No Known Allergies Allergy Verified 07/09/17 14:00 Results - Vital Signs Recent Vital Signs: Last Vital Signs Temp 98.6 F 07/09/17 19:52 Pulse 120 H 07/09/17 19:52 Resp 20 07/09/17 19:52 BP 138/72 07/09/17 19:52 Pulse Ox 97 07/09/17 19:52 - Labs Result Diagrams: 07/09/17 15:07 07/09/17 15:07 Labs: Laboratory Results - last 24 hr 07/09/17 07/09/17 07/09/17 14:10 14:19 15:07 WBC 10.0 RBC 4.21 Hgb 13.1 Hct 38.1 MCV 90.4 MCH 31.2 H MCHC 34.4 RDW 13.5 Plt Count 301 MPV 9.3 Neut % (Auto) 75.0 Lymph % (Auto) 15.2 L [place] % (Auto) 6.3 Eos % (Auto) 2.7 Baso % (Auto) 0.8 Neut # (Auto) 7.5 H Lymph # (Auto) 1.5 [place] # (Auto) 0.6 Eos # (Auto) 0.3 Baso # (Auto) 0.1 PT INR APTT Sodium Potassium Chloride Carbon Dioxide Anion Gap BUN Creatinine Est GFR ( Amer) Est GFR (Non-Af Amer) POC Glucose (mg/dL) 229 H 234 H Random Glucose Calcium Total Bilirubin AST ALT Alkaline Phosphatase Total Protein Albumin Globulin Albumin/Globulin Ratio 07/09/17 07/09/17 15:07 15:07 WBC RBC Hgb Hct MCV MCH MCHC RDW Plt Count MPV Neut % (Auto) Lymph % (Auto) [place] % (Auto) Eos % (Auto) Baso % (Auto) Neut # (Auto) Lymph # (Auto) [place] # (Auto) Eos # (Auto) Baso # (Auto) PT 13.3 H INR 1.2 APTT 28 Sodium 140 Potassium 4.5 Chloride 102 Carbon Dioxide 24 Anion Gap 18 BUN 25 H Creatinine 0.7 Est GFR ( Amer) > 60 Est GFR (Non-Af Amer) > 60 POC Glucose (mg/dL) Random Glucose 229 H Calcium 9.1 Total Bilirubin 0.8 AST 29 ALT 15 Alkaline Phosphatase 117 Total Protein 8.8 H Albumin 3.7 Globulin 5.2 H Albumin/Globulin Ratio 0.7 L
[2017-07-10] MEDS: (Novolin R) Insulin Human Regular 100 units/ml vial SC SCH ×4 (07:41→21:53)
[2017-07-10] MEDS ORDERED: QUINIDINE PO SCH (10:00)
[2017-07-10] MEDS ORDERED: DEXTROMETHORPHAN HBR PO SCH (10:00)
[2017-07-10] MEDS: Enoxaparin 40 mg Syringe SC SCH (10:36)
[2017-07-10] MEDS ORDERED: Lidocaine Hydrochloride 5 ML INJ ONE (17:04)
[2017-07-10] MEDS ORDERED: Propofol 10 mg/ml Inj (20 ML) ONE (17:17)
--- NOTE | 2017-07-10 23:39 | CP.PCM.PN ---
Subjective - Date & Time of Evaluation Date of Evaluation: 07/10/17 Time of Evaluation: 18:40 - Subjective Subjective: PT SEEN AND EXAMINED AT BEDSIDE Objective - Vital Signs/Intake and Output Vital Signs (last 24 hours): Temp Pulse Resp BP Pulse Ox 98.4 F 80 24 121/65 98 07/10/17 18:30 07/10/17 18:30 07/10/17 18:30 07/10/17 18:30 07/10/17 18:30 Intake and Output: 07/10/17 07/11/17 18:59 06:59 Intake Total 250 200 Balance 250 200 - Medications Medications: Current Medications Acetaminophen (Tylenol 325mg Tab) 650 mg PO Q4 PRN PRN Reason: Fever >100.4 F Alprazolam (Xanax) 0.5 mg PO DAILY [facility] Last Admin: 07/10/17 10:36 Dose: Not Given Docusate Sodium (Colace) 200 mg PO HS [facility] Last Admin: 07/10/17 21:51 Dose: 200 mg Enoxaparin Sodium (Lovenox) 40 mg SC DAILY [facility] Last Admin: 07/10/17 10:36 Dose: Not Given Famotidine (Pepcid) 20 mg PO HS [facility] Last Admin: 07/10/17 21:52 Dose: 20 mg Home Med (Dextromethorphan Hbr/Quinidine [Nuedexta 20-10 Mg Capsule]) 1 cap PO BID [facility] Cefazolin Sodium 500 mg/ (Sodium Chloride) 50 mls @ 100 mls/hr IVPB Q8H [facility] PRN Reason: Protocol Last Admin: 07/10/17 17:00 Dose: Not Given Insulin Human Regular (Novolin R) 0 unit SC ACHS [facility] PRN Reason: Protocol Last Admin: 07/10/17 21:53 Dose: Not Given Ipratropium [place] (Atrovent) 0.5 mg IH RQ6 PRN PRN Reason: sob Losartan Potassium (Cozaar) 25 mg PO DAILY [facility] Last Admin: 07/10/17 10:36 Dose: Not Given Magnesium Hydroxide (Milk Of Magnesia) 30 ml PO DAILY PRN PRN Reason: Constipation Memantine (Namenda) 10 mg PO BID [facility] Last Admin: 07/10/17 18:00 Dose: Not Given Mirtazapine (Remeron) 15 mg PO HS [facility] Last Admin: 07/10/17 21:53 Dose: 15 mg - Labs Labs: 07/09/17 15:07 07/09/17 15:07 PT 13.3 SECONDS (9.7-12.2) H 07/09/17 15:07 INR 1.2 07/09/17 15:07 APTT 28 SECONDS (21-34) 07/09/17 15:07
[2017-07-11 01:28] VITALS: RESP 20
--- NOTE | 2017-07-11 03:55 | OP ---
PROCEDURE DATE: 07/10/2017 PREOPERATIVE DIAGNOSIS: Infected mass of the left shoulder. POSTOPERATIVE DIAGNOSIS: Infected mass of the left shoulder. PROCEDURE PERFORMED: Wide deep excision of infected mass of the left shoulder with advancement flap closure. SURGEON: Justice Samuels MD ANESTHESIA: General. BLOOD LOSS: 50 mL. POSTOPERATIVE CONDITION: Stable. 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 The mass was 5 cm in size. DESCRIPTION OF PROCEDURE: The patient was taken to the operating room. The left shoulder was prepped and draped. A generous elliptical incision was made surrounding the mass. It was dissected into the back fascia, chest wall area, and completely excised. Bleeding was controlled using the Bovie. Larger chest wall blood vessel was repaired. The wound was irrigated with saline. Generous advancement flaps were raised full-thickness which included counter incisions, and advancement flap closure was performed using multiple layers of Monocryl and subcuticular Monocryl, 30 sq cm closure was performed. The patient tolerated the procedure well. Returned to recovery room in stable condition. Justice Samuels MD
[2017-07-11] MEDS: (Novolin R) Insulin Human Regular 100 units/ml vial SC SCH ×3 (09:00→16:30)
[2017-07-11] MEDS: Enoxaparin 40 mg Syringe SC SCH (09:01)
[2017-07-11 16:14] VITALS: BP 103/59; TEMP 97.9
[2017-07-11 16:58] VITALS: PULSE 90; O2SAT 99
--- NOTE | 2017-07-11 23:22 | CP.PCM.DIS ---
Provider - Provider Date of Admission: 07/09/17 17:46 Attending physician: John Fay MD Time Spent in preparation of Discharge (in minutes): 58 Hospital Course - Lab Results Lab Results: Micro Results 07/09/17 15:15 Blood Blood Culture - Preliminary NO GROWTH AFTER 48 HOURS 07/09/17 14:45 Blood Blood Culture - Preliminary NO GROWTH AFTER 48 HOURS 07/10/17 18:02 Shoulder - Left Gram Stain - Final Most Recent Lab Values WBC 10.0 K/uL (4.8-10.8) 07/09/17 15:07 RBC 4.21 Mil/uL (3.80-5.20) 07/09/17 15:07 Hgb 13.1 g/dL (11.0-16.0) 07/09/17 15:07 Hct 38.1 % (34.0-47.0) 07/09/17 15:07 MCV 90.4 fL (81.0-99.0) 07/09/17 15:07 MCH 31.2 pg (27.0-31.0) H 07/09/17 15:07 MCHC 34.4 g/dL (33.0-37.0) 07/09/17 15:07 RDW 13.5 % (11.5-14.5) 07/09/17 15:07 Plt Count 301 K/uL (130-400) 07/09/17 15:07 MPV 9.3 fL (7.2-11.7) 07/09/17 15:07 Neut % (Auto) 75.0 % (50.0-75.0) 07/09/17 15:07 Lymph % (Auto) 15.2 % (20.0-40.0) L 07/09/17 15:07 [place] % (Auto) 6.3 % (0.0-10.0) 07/09/17 15:07 Eos % (Auto) 2.7 % (0.0-4.0) 07/09/17 15:07 Baso % (Auto) 0.8 % (0.0-2.0) 07/09/17 15:07 Neut # (Auto) 7.5 K/uL (1.8-7.0) H 07/09/17 15:07 Lymph # (Auto) 1.5 K/uL (1.0-4.3) 07/09/17 15:07 [place] # (Auto) 0.6 K/uL (0.0-0.8) 07/09/17 15:07 Eos # (Auto) 0.3 K/uL (0.0-0.7) 07/09/17 15:07 Baso # (Auto) 0.1 K/uL (0.0-0.2) 07/09/17 15:07 PT 13.3 SECONDS (9.7-12.2) H 07/09/17 15:07 INR 1.2 07/09/17 15:07 APTT 28 SECONDS (21-34) 07/09/17 15:07 Sodium 140 mmol/L (132-148) 07/09/17 15:07 Potassium 4.5 mmol/L (3.6-5.2) 07/09/17 15:07 Chloride 102 mmol/L (98-107) 07/09/17 15:07 Carbon Dioxide 24 mmol/L (22-30) 07/09/17 15:07 Anion Gap 18 (10-20) 07/09/17 15:07 BUN 25 mg/dL (7-17) H 07/09/17 15:07 Creatinine 0.7 mg/dL (0.7-1.2) 07/09/17 15:07 Est GFR ( Amer) > 60 07/09/17 15:07 Est GFR (Non-Af Amer) > 60 07/09/17 15:07 POC Glucose (mg/dL) 134 mg/dL (65-110) H 07/11/17 16:32 Random Glucose 229 mg/dL (65-105) H 07/09/17 15:07 Calcium 9.1 mg/dl (8.6-10.4) 07/09/17 15:07 Total Bilirubin 0.8 mg/dL (0.2-1.3) 07/09/17 15:07 AST 29 U/L (14-36) 07/09/17 15:07 ALT 15 U/L (9-52) 07/09/17 15:07 Alkaline Phosphatase 117 U/L (38-126) 07/09/17 15:07 Total Protein 8.8 g/dL (6.3-8.3) H 07/09/17 15:07 Albumin 3.7 g/dL (3.5-5.0) 07/09/17 15:07 Globulin 5.2 gm/dL (2.2-3.9) H 07/09/17 15:07 Albumin/Globulin Ratio 0.7 (1.0-2.1) L 07/09/17 15:07 Discharge Plan - Discharge Medications Prescriptions: Cefadroxil [Duricef] 500 mg PO BID #20 cap - Follow Up Plan Condition: FAIR Disposition: REHAB FACILITY/REHAB UNIT Instructions: Cellulitis (Skin Infection), Adult (DC), Cefadroxil Referrals: John Fay MD [Staff Provider] - Justice Samuels MD [Staff Provider] -
== END 2017-07-11 17:25 ==
LOC: C.ER 13:28 → C.9E 17:46 → C.3T 18:39
PROVIDERS: ADMIT Internal Medicine; ATTEND Internal Medicine
DX: L03.312 Cellulitis of back [any part except buttock and flank] (principal); I11.0 Hypertensive heart disease with heart failure; I50.9 Heart failure, unspecified; Z85.3 Personal history of malignant neoplasm of breast; Z79.01 Long term (current) use of anticoagulants; I45.2 Bifascicular block; L72.0 Epidermal cyst; E78.00 Pure hypercholesterolemia, unspecified; J43.9 Emphysema, unspecified; F03.90 Unspecified dementia, unspecified severity, without behavioral disturbance, psychotic disturbance, mood disturbance, and anxiety; M19.90 Unspecified osteoarthritis, unspecified site; K21.0 Gastro-esophageal reflux disease with esophagitis; F41.9 Anxiety disorder, unspecified; F32.9 Major depressive disorder, single episode, unspecified; Z90.11 Acquired absence of right breast and nipple; E11.622 Type 2 diabetes mellitus with other skin ulcer; L98.421 Non-pressure chronic ulcer of back limited to breakdown of skin
CPT/HCPCS: 13121; 14021; 23073; 70450; 80053; 82948; 85025; 85610; 85730; 87040; 87070; 88307; 96365; 96366; 96372; 97110; 97162; 97167; 97530; 99284; G0378; G8978; G8979; G8987; G8988; J0690; J1650; J2704

== ENCOUNTER 2017-08-07 01:13 | Inpatient (IN) | payer MEDICARE, MEDICAID ==
[2017-08-07 01:13] VITALS: BMI 35.1
[2017-08-07] MEDS ORDERED: (Novolin R) Insulin Human Regular 100 units/ml vial IV STA (01:26)
[2017-08-07] MEDS ORDERED: Sodium Chloride 0.9% 1,000 ML IV ONE (01:26)
[2017-08-07 01:40] LABS: BASO % 0.2 % (0.0-2.0); HEMOGLOBIN 13.3 g/dL (11.0-16.0); MEAN CELL VOLUME 98.3 fL (81.0-99.0); MEAN CORPUSCULAR HEMOGLOBIN 30.7 pg (27.0-31.0); MEAN CORPUSCULAR HGB CONC 31.2 g/dL (33.0-37.0); MEAN PLATELET VOLUME 10.8 fL (7.2-11.7); MONO # 1.2 K/uL (0.0-0.8); MONO % 5.7 % (0.0-10.0); NEUT # 18.4 K/uL (1.8-7.0); NEUT % 89.1 % (50.0-75.0); PLATELET COUNT 266 K/uL (130-400); RBC 4.32 Mil/uL (3.80-5.20); RED CELL DISTRIBUTION WIDTH 15.5 % (11.5-14.5); WHITE BLOOD COUNT 20.7 K/uL (4.8-10.8)
--- NOTE | 2017-08-07 01:42 | C.PDOC ---
History Of Present Illness 87 year old female presents to the emergency department after being found unresponsive in her assisted. Patient is unresponsive on arrival, and a history was not able to be obtained. Chief Complaint (Nursing): Altered Mental Status History Per: EMS History/Exam Limitations: Clinical Condition Past Medical History Reviewed: Historical Data, Nursing Documentation, Vital Signs Vital Signs: Last Vital Signs Temp 100.4 F H 08/07/17 01:28 Pulse 126 H 08/07/17 01:20 Resp 29 H 08/07/17 01:20 BP 98/46 L 08/07/17 01:20 Pulse Ox 100 08/07/17 02:45 - Medical History PMH: Anxiety, Arthritis, Asthma, CHF, COPD, Dementia, Depression, Diabetes, Emphysema, HTN, Hypercholesterolemia, Chronic Pain (Left Knee) Denies: Chronic Kidney Disease Surgical History: No Surg Hx Family History: States: Unknown Family Hx - Social History Hx Tobacco Use: No Hx Alcohol Use: No Hx Substance Use: No - Immunization History Hx Tetanus Toxoid Vaccination: No Hx Influenza Vaccination: Yes Hx Pneumococcal Vaccination: Yes Review Of Systems Review Of Systems: ROS cannot be obtained secondary to pt's inabilty to answer questions. Physical Exam - Physical Exam Appears: Other (lethargic, non responsive) Skin: Normal Color Head: Atraumatic Eye(s): bilateral: PERRL Oral Mucosa: Moist, No Dry Throat: Normal Neck: Normal, Normal ROM, Trachea Midline Cardiovascular: Rhythm Regular (BP 108/60) Respiratory: Rales (Left lower lung area) Gastrointestinal/Abdominal: Normal Exam, Soft, No Tenderness Back: Normal Inspection ED Course And Treatment - Laboratory Results Result Diagrams: 08/07/17 01:25 08/07/17 01:25 O2 Sat by Pulse Oximetry: 100 (RA) Pulse Ox Interpretation: Normal Medical Decision Making Medical Decision Making: Plan: Arterial BG CT Head w/o Contrast EKG CMP Lipase CBC PTT Prothrombin Time Glucose POC Insulin 6 unit IV NaCl IV Fluids Blood Culture Urine Culture Disposition Discussed With : John Fay Doctor Will See Patient In The: Hospital Counseled Patient/Family Regarding: Diagnosis - Disposition Referrals: Jhon Mckinney MD [Staff Provider] - (for ICU admission) Disposition: HOSPITALIZED Disposition Time: 03:01 Condition: SERIOUS Forms: [facility] (Macedonian) - POA Present On Arrival: Poor Glycemic Control Core Measure Indicators: Code Sepsis - Clinical Impression Clinical Impression: DKA (diabetic ketoacidosis), Pneumonia - Scribe Statement The provider has reviewed the documentation as recorded by the Scribe (Jose Campos) Provider Attestation: All medical record entries made by the Scribe were at my direction and personally dictated by me. I have reviewed the chart and agree that the record accurately reflects my personal performance of the history, physical exam, medical decision making, and the department course for this patient. I have also personally directed, reviewed, and agree with the discharge instructions and disposition.
[2017-08-07] MEDS ORDERED: (Novolin R) Insulin Human Regular 100 units/ml vial ONE (01:50)
[2017-08-07 01:56] LABS: INR 1.4; PROTHROMBIN TIME 15.7 SECONDS (9.7-12.2)
--- NOTE | 2017-08-07 02:28 | CT ---
EXAM: CT Head Without Intravenous Contrast CLINICAL HISTORY: 87 years old, female; Pain; Other: Lethargic; Patient HX: 07-09-17 images sent TECHNIQUE: Axial computed tomography images of the head/brain without intravenous contrast. All CT scans at this facility use one or more dose reduction techniques, viz.: automated exposure control; ma/kV adjustment per patient size (including targeted exams where dose is matched to indication; i.e. head); or iterative reconstruction technique. Coronal and sagittal reformatted images were created and reviewed. COMPARISON: No relevant prior studies available. FINDINGS: Limitations: Suboptimal positioning. Brain: Moderate atrophy. No intracranial hemorrhage. No mass. Few scattered foci of decreased attenuation within periventricular/subcortical white matter. No definite edema. Ventricles: No hydrocephalus. Bones/joints: No acute fracture. Soft tissues: Unremarkable. Vasculature: Atherosclerotic disease of intracranial arteries. Sinuses: Scattered mild mucosal thickening of ethmoid sinuses. Mastoid air cells: No mastoid effusion. Orbits: Unremarkable as visualized. IMPRESSION: 1. Nonspecific white matter changes. Acute infarction may be CT occult within first 24 hours. If a focal deficit persists, consider followup CT or MRI for further evaluation. 2. Incidental/non-acute findings are described above.
[2017-08-07] MEDS ORDERED: Sodium Chloride 0.45% 1,000 ML IV SCH (02:30)
[2017-08-07 02:31] LABS: ALB/GLOB RATIO 0.7 (1.0-2.1); ALBUMIN 3.3 g/dL (3.5-5.0); CALCIUM 8.7 mg/dl (8.6-10.4)
[2017-08-07 02:31] LABS: ABG ALLEN TEST POS; ARTERIAL BLOOD GAS HCO3 19.2 mmol/L (21-28); ARTERIAL BLOOD GAS HEMOGLOBIN 14.7 g/dL (11.7-17.4); ARTERIAL BLOOD GAS O2 SAT 100.5 % (95-98); ARTERIAL BLOOD GAS PCO2 36 mm/Hg (35-45); ARTERIAL BLOOD GAS PH 7.31 (7.35-7.45); ARTERIAL BLOOD GAS PO2 333 mm/Hg (80-100); ARTERIAL BLOOD GAS TCO2 19.2 mmol/L (22-28)
[2017-08-07] MEDS ORDERED: cefTRIAXone IV 1 gm in Dextros 50 ML IVPB ONE ×2 (02:45→02:52)
[2017-08-07] MEDS ORDERED: Azithromycin 500mg/250ML NS 500 MG/250 ML BAG IV STA (02:46)
[2017-08-07 03:05] LABS: LYMPHOCYTE 7 % (20-40); MONOCYTE 4 % (0-10); NEUTROPHIL 89 % (50-75); PLATELET ESTIMATE NORMAL (NORMAL); TOTAL CELLS COUNTED 100
[2017-08-07] MEDS ORDERED: Lactated Ringer's 1,000 ML IV ONE (04:22)
[2017-08-07] MEDS ORDERED: Insulin Human Regular 100 UNIT in Sodium Chloride 0.9% 99 ML IV SCH (04:30)
[2017-08-07] MEDS ORDERED: Lactated Ringer's 1,000 ML IV SCH (04:30)
[2017-08-07 04:32] LABS: CALCIUM 8.2 mg/dl (8.6-10.4)
--- NOTE | 2017-08-07 04:44 | CP.PCM.CON ---
History of Present Illness - History of Present Illness History of Present Illness: 89 F with h/o dm, htn, dementia, pulm fibrosis, anxiety, right breast cancer and mastectomy, OA, sent in from [place] with hyperglycemia, lethargy, decreased responsiveness, hypotensive, in ER found be hyperosmolar state, leucocytosis, ? left lung infiltrate vs fibrosis, up in ICU very cloudy urine. Patient has received recephin, ivf, 6 units regular insulin in ER. Patient up in ICU still not communicative, but awake tired. PMH/PSH as above Allergies NKDA Social [facility] resident Family history not contributory Meds reviewed xanax 0.5mg, colace, famotidine, losartan, duoneb, mom, mylanta, nam[place]liding scale, nuedexta, rameron, tylenol Review of Systems - Review of Systems All systems: reviewed and no additional remarkable complaints except (HPI) Past Patient History - Infectious Disease Hx of Infectious Diseases: None - Past Medical History & Family History Past Medical History?: Yes - Past Social History Smoking Status: Unknown If Ever Smoked Alcohol: None Drugs: Denies Home Situation {Lives}: Detention - CARDIAC Hx Congestive Heart Failure: Yes Hx Hypercholesterolemia: Yes Hx Hypertension: Yes - PULMONARY Hx Asthma: Yes Hx Chronic Obstructive Pulmonary Disease (COPD): Yes Hx Emphysema: Yes - NEUROLOGICAL Hx Dementia: Yes - HEENT Hx HEENT Problems: No - RENAL Hx Chronic Kidney Disease: No - ENDOCRINE/METABOLIC Hx Diabetes Mellitus Type 2: Yes - HEMATOLOGICAL/ONCOLOGICAL Hx Blood Disorders: Yes Hx Cancer: Yes (RIGHT BREAST CA) - INTEGUMENTARY Hx Dermatological Problems: No - MUSCULOSKELETAL/RHEUMATOLOGICAL Hx Arthritis: Yes - GASTROINTESTINAL Hx Gastrointestinal Disorders: Yes Hx Gastroesophageal Reflux: Yes Other/Comment: Esophagitis - GENITOURINARY/GYNECOLOGICAL Hx Genitourinary Disorders: No - PSYCHIATRIC Hx Anxiety: Yes Hx Depression: Yes Hx Substance Use: No - SURGICAL HISTORY Hx Surgeries: Yes Hx Mastectomy: Yes (Right mastectomy) Hx Orthopedic Surgery: Yes (left knee) - ANESTHESIA Hx Anesthesia: Yes Hx Anesthesia Reactions: No Hx Malignant Hyperthermia: No Meds Allergies/Adverse Reactions: Allergies Allergy/AdvReac Type Severity Reaction Status Date / Time No Known Allergies Allergy Verified 08/07/17 01:22 - Medications Medications: Current Medications Heparin Sodium (Porcine) (Heparin) 5,000 units SC Q12 ANGELIA Sodium Chloride (Sodium Chloride 0.45%) 1,000 mls @ 1,000 mls/hr IV .Q1H ANGELIA Last Admin: 08/07/17 02:52 Dose: 1,000 mls/hr Doxycycline Hyclate 100 mg/ (Sodium Chloride) 100 mls @ 100 mls/hr IVPB Q12H ANGELIA PRN Reason: Protocol Piperacillin Sod/Tazobactam Sod (Zosyn 2.25 Gm Iv Premix) 2.25 gm in 50 mls @ 100 mls/hr IVPB Q6H ANGELIA PRN Reason: Protocol Lactated Ringer's (Lactated Ringer's) 1,000 mls @ 1,000 mls/hr IV .Q1H ONE Stop: 08/07/17 05:21 Lactated Ringer's (Lactated Ringer's) 1,000 mls @ 100 mls/hr IV .Q10H [facility] Insulin Human Regular 100 unit (/ Sodium Chloride) 100 mls @ 2 mls/hr IV .Q24H NAGELIA PRN Reason: Protocol Pantoprazole Sodium (Protonix Inj) 40 mg IVP DAILY [facility] Physical Exam - Additional Findings Additional findings: * HEENT ANN MARIE, slow reaction * Neck supple * Chest, right mastectomy, clear b/l * CVS regular, initial junctional rhythm, now sinus * PA suprapubic tenderness * Ext no edema, skin turgor low, suggesting dehydrated * Sacral 1cm stage 2 decub * Stool firm constipated * [employer] not communicative, awake, moves ext Results - Vital Signs Recent Vital Signs: Last Vital Signs Temp 100.4 F H 08/07/17 01:28 Pulse 100 H 08/07/17 03:22 Resp 14 08/07/17 03:22 BP 130/78 08/07/17 03:22 Pulse Ox 100 08/07/17 03:22 - Labs Result Diagrams: 08/07/17 01:25 08/07/17 01:25 Labs: Laboratory Results - last 24 hr 08/07/17 08/07/17 08/07/17 01:18 01:25 01:25 WBC 20.7 H D RBC 4.32 Hgb 13.3 Hct 42.5 MCV 98.3 D MCH 30.7 MCHC 31.2 L RDW 15.5 H Plt Count 266 MPV 10.8 Neut % (Auto) 89.1 H Lymph % (Auto) 5.0 L Sully % (Auto) 5.7 Eos % (Auto) 0.0 Baso % (Auto) 0.2 Neut # (Auto) 18.4 H Lymph # (Auto) 1.0 Sully # (Auto) 1.2 H Eos # (Auto) 0.0 Baso # (Auto) 0.0 Neutrophils % (Manual) 89 H Lymphocytes % (Manual) 7 L Monocytes % (Manual) 4 Platelet Estimate Normal PT INR APTT Puncture Site pCO2 pO2 HCO3 ABG pH ABG Total CO2 ABG O2 Saturation ABG Base Excess ABG Hemoglobin ABG Carboxyhemoglobin POC ABG HHb (Measured) ABG Methemoglobin Ede Test A-a O2 Difference Respiratory Index Hgb O2 Saturation FiO2 Sodium 159 H Potassium 4.4 Chloride 116 H Carbon Dioxide 20 L Anion Gap 27 H BUN 75 H Creatinine 3.7 H Est GFR ( Amer) 14 Est GFR (Non-Af Amer) 12 POC Glucose (mg/dL) > 500 H* Random Glucose 650 H* D Lactic Acid Calcium 8.7 Total Bilirubin 0.6 AST 57 H D ALT 26 Alkaline Phosphatase 105 Total Protein 7.7 Albumin 3.3 L Globulin 4.5 H Albumin/Globulin Ratio 0.7 L Lipase 191 B-Hydroxybutyrate 0.30 H 08/07/17 08/07/17 08/07/17 01:41 02:19 02:27 WBC RBC Hgb Hct MCV MCH MCHC RDW Plt Count MPV Neut % (Auto) Lymph % (Auto) Sully % (Auto) Eos % (Auto) Baso % (Auto) Neut # (Auto) Lymph # (Auto) Sully # (Auto) Eos # (Auto) Baso # (Auto) Neutrophils % (Manual) Lymphocytes % (Manual) Monocytes % (Manual) Platelet Estimate PT 15.7 H INR 1.4 APTT 24 Puncture Site Rr pCO2 36 pO2 333 H HCO3 19.2 L ABG pH 7.31 L ABG Total CO2 19.2 L ABG O2 Saturation 100.5 H ABG Base Excess -7.4 L ABG Hemoglobin 14.7 ABG Carboxyhemoglobin 1.9 H POC ABG HHb (Measured) -0.5 L ABG Methemoglobin 1.1 Ede Test Pos A-a O2 Difference 335.0 Respiratory Index 1.0 Hgb O2 Saturation 97.4 FiO2 100.0 Sodium Potassium Chloride Carbon Dioxide Anion Gap BUN Creatinine Est GFR ( Amer) Est GFR (Non-Af Amer) POC Glucose (mg/dL) 436 H* Random Glucose Lactic Acid Calcium Total Bilirubin AST ALT Alkaline Phosphatase Total Protein Albumin Globulin Albumin/Globulin Ratio Lipase B-Hydroxybutyrate 08/07/17 08/07/17 02:49 04:22 WBC RBC Hgb Hct MCV MCH MCHC RDW Plt Count MPV Neut % (Auto) Lymph % (Auto) Sully % (Auto) Eos % (Auto) Baso % (Auto) Neut # (Auto) Lymph # (Auto) Sully # (Auto) Eos # (Auto) Baso # (Auto) Neutrophils % (Manual) Lymphocytes % (Manual) Monocytes % (Manual) Platelet Estimate PT INR APTT Puncture Site pCO2 pO2 HCO3 ABG pH ABG Total CO2 ABG O2 Saturation ABG Base Excess ABG Hemoglobin ABG Carboxyhemoglobin POC ABG HHb (Measured) ABG Methemoglobin Ede Test A-a O2 Difference Respiratory Index Hgb O2 Saturation FiO2 Sodium Potassium Chloride Carbon Dioxide Anion Gap BUN Creatinine Est GFR ( Amer) Est GFR (Non-Af Amer) POC Glucose (mg/dL) 446 H* Random Glucose Lactic Acid 4.8 H* Calcium Total Bilirubin AST ALT Alkaline Phosphatase Total Protein Albumin Globulin Albumin/Globulin Ratio Lipase B-Hydroxybutyrate Assessment & Plan - Assessment and Plan (Free Text) Assessment: * HONKH * UTI * FLORENTINO likely prerenal * h/o pulm fibrosis ? lll pna * resident Plan: * RL still 1 lit bolus, then 100mls/hr * Insulin drip * Zosyn and doxycycline * Gi/DVT prophylaxis * Echo * Rojas, urinalysis and culture * Hold on losartan and any nephortoxic drug * Bladder/kid ultrasound * See orders for detail.
[2017-08-07] MEDS: Piperacill/Tazo 2.25gm in Dex 2.25 GM/50 ML BAG IVPB SCH ×4 (05:30→21:35)
[2017-08-07 06:38] LABS: URINE BACTERIA MOD (<OCC); URINE BILIRUBIN NEGATIVE (NEGATIVE); URINE BLOOD 2+ (NEGATIVE); URINE CLARITY Turbid (Clear); URINE COLOR Amber (YELLOW); URINE GLUCOSE (UA) 3+ mg/dL (Normal); URINE HYALINE CAST >20 /lpf (0-2); URINE LEUKOCYTE ESTERASE 3+ Leu/uL (Negative); URINE PROTEIN 1+ mg/dL (NEGATIVE); URINE UROBILINOGEN NORMAL mg/dL (0.2-1.0); WBC CLUMPS MANY /hpf
[2017-08-07 06:46] LABS: BASO % 0.2 % (0.0-2.0); LYMPH # 1.6 K/uL (1.0-4.3); LYMPH % 5.9 % (20.0-40.0); MEAN CELL VOLUME 99.2 fL (81.0-99.0); MEAN CORPUSCULAR HEMOGLOBIN 30.7 pg (27.0-31.0); MEAN PLATELET VOLUME 10.3 fL (7.2-11.7); MONO # 1.2 K/uL (0.0-0.8); MONO % 4.4 % (0.0-10.0); NEUT # 24.6 K/uL (1.8-7.0); NEUT % 89.5 % (50.0-75.0); NRBC % 0.1 % (0.0-2.0); PLATELET COUNT 237 K/uL (130-400); RBC 4.24 Mil/uL (3.80-5.20); RED CELL DISTRIBUTION WIDTH 15.4 % (11.5-14.5); WHITE BLOOD COUNT 27.5 K/uL (4.8-10.8)
[2017-08-07 07:07] LABS: ALB/GLOB RATIO 0.7 (1.0-2.1); ALBUMIN 3.2 g/dL (3.5-5.0); CALCIUM 8.4 mg/dl (8.6-10.4)
--- NOTE | 2017-08-07 07:24 | RAD ---
Chest x-ray single frontal view History: Diabetic. Comparison: 01/15/2017 Findings: Prominent diffuse increased interstitial lung markings which may represent underlying infiltrate versus edema versus congestion. More confluent increased consolidative changes seen within the left mid to lower lung zone. Chronic fibrotic changes. Scattered nodularity in both lung perez. Cardiomegaly. Calcification at the aortic knob. Degenerative changes in the spine and shoulders. Vertically-oriented hyperdensity projects over the mid right haley thorax, nonspecific. Surgical clips in the right axilla. Impression: Prominent diffuse increased interstitial lung markings which may represent underlying infiltrate versus edema versus congestion. More confluent increased consolidative changes seen within the left mid to lower lung zone. Chronic fibrotic changes. Scattered nodularity in both lung perez. Cardiomegaly. Calcification at the aortic knob. Degenerative changes in the spine and shoulders. Vertically-oriented hyperdensity projects over the mid right haley thorax, nonspecific. Surgical clips in the right axilla.
[2017-08-07 09:08] LABS: BANDS 4 % (0-2); LYMPHOCYTE 5 % (20-40); MONOCYTE 4 % (0-10); NEUTROPHIL 87 % (50-75); PLATELET ESTIMATE NORMAL (NORMAL); TOTAL CELLS COUNTED 100
[2017-08-07] MEDS ORDERED: Sodium Chloride 0.45% 1,000 ML IV ONE ×2 (09:18→15:39)
[2017-08-07] MEDS ORDERED: Sodium Chloride 0.9% 500 ML IV ONE (09:30)
--- NOTE | 2017-08-07 14:38 | US ---
PROCEDURE: Ultrasound of the Kidneys HISTORY: FLORENTINO, UTI. COMPARISON: None available. TECHNIQUE: Sonogram of the kidneys. FINDINGS: RIGHT KIDNEY: Measures: 9.7 5 x 4.6 x 4.4 cm. Normal in size size and contour. Questionable mild increased renal parenchymal echogenicity. No stone, solid mass lesion or hydronephrosis visualized. LEFT KIDNEY: Measures: 10.4 x 5.0 x 5.0 cm. Normal in size and contour. Questionable mild increased renal parenchymal echogenicity. No stone, solid mass lesion or hydronephrosis visualized. OTHER FINDINGS: There is an in situ unclamped Rojas catheter within a collapsed urinary bladder. Evaluation of the urinary bladder is therefore limited. IMPRESSION: No evidence of nephrolithiasis or hydronephrosis. Questionable mild increased renal parenchymal echogenicity
[2017-08-07 17:05] VITALS: O2SAT 100
--- NOTE | 2017-08-07 17:47 | PCM.PROC ---
Procedures Attestation:: I certify that I have explained the specified Operation(s) or Procedure(s), risks, benefits and reasonable alternatives to the Patient and/or other person responsible. The opportunity was given to ask questions and all questions answered - Central Line Placement Right Internal Jugular Triple Lumen Catheter Aseptic technique was employed throughout the procedure: Hand Hygiene done prior to procedure, Full sterile barriers (mask, hair cover, sterile gown, sterile gloves), Full body sterile drape, Chloraprep Antiseptic: 30 second prep for IJ or SC sites CVP Time Out Performed: Yes Pt. Placed on Pulse Ox Monitor: Yes Central Line Prep: Chlorhexidine-Alcohol Combination Local Anesthesia Used: Lidocaine 1% Amount of Anesthesia Used (mls): 3 Ultrasound Used for Placement: Yes Central Line Lumen Inserted: triple Central Line Length: 16 cm Post Procedure: Sutured in Place, Good Blood Return, All Ports Aspirated, Flushed, Capped, Sterile Dressing Applied Secured by: Suture Post procedure dressing: Chlorhexidine disc (Biopatch)
[2017-08-07] MEDS: Sodium Chloride 0.45% 1,000 ML IV SCH (17:58)
--- NOTE | 2017-08-07 19:04 | CARD ---
APPROVED REPORT EXAM: Two-dimensional and M-mode echocardiogram with Doppler and color Doppler. Other Information Quality : GoodRhythm : INDICATION Congestive Heart Failure COPD SEPSIS RISK FACTORS Hypertension Diabetes 2D DIMENSIONS IVSd1.7 (0.7-1.1cm)LVDd2.1 (3.9-5.9cm) PWd1.4 (0.7-1.1cm)LVDs1.5 (2.5-4.0cm) FS (%) 31.4 %LVEF (%)62.2 (>50%) M-Mode DIMENSIONS Left Atrium (MM)3.93 (2.5-4.0cm)Aortic Root3.19 (2.2-3.7cm) Aortic Cusp Exc.1.87 (1.5-2.0cm) Mitral Valve MV E Kwcodlok523.1cm/sMV E Peak Gr.24mmHgMV E Mean Gr.11mmHg MV ZPT69vsP/A ratio0.0MVA (PHT)2.54cm2 TDI E/Lateral E'0.0E/Medial E'0.0 Tricuspid Valve TR Peak [id number]/sTR Peak Gr.75kuMjPOAE11sjYn LEFT VENTRICLE The left ventricle is normal size. There is normal left ventricular wall thickness. The left ventricular function is normal. The left ventricular ejection fraction is within the normal range. There is normal LV segmental wall motion. The left ventricular diastolic function is normal. RIGHT VENTRICLE The right ventricle is normal size. ATRIA The left atrium is borderline dilated. The right atrium size is normal. AORTIC VALVE The aortic valve is calcified but opens well. MITRAL VALVE Mitral annular calcification is mild to moderate. Mitral regurgitation is mild. TRICUSPID VALVE There is moderate tricuspid regurgitation. <Conclusion> Normal LV systolic function. Borderline dilated LA. MAC. Mild MR. Moderate TR.
[2017-08-08] MEDS: Sodium Chloride 0.45% 1,000 ML IV SCH ×3 (01:00→15:54)
[2017-08-08] MEDS: Piperacill/Tazo 2.25gm in Dex 2.25 GM/50 ML BAG IVPB SCH (04:05)
[2017-08-08] MEDS: (Novolin R) Insulin Human Regular 100 units/ml vial SC SCH ×3 (06:00→12:31)
[2017-08-08 06:34] LABS: BASO % 0.1 % (0.0-2.0); HEMOGLOBIN 12.4 g/dL (11.0-16.0); LYMPH # 1.1 K/uL (1.0-4.3); LYMPH % 4.9 % (20.0-40.0); MEAN CELL VOLUME 96.8 fL (81.0-99.0); MEAN CORPUSCULAR HEMOGLOBIN 30.8 pg (27.0-31.0); MEAN CORPUSCULAR HGB CONC 31.8 g/dL (33.0-37.0); MEAN PLATELET VOLUME 10.6 fL (7.2-11.7); MONO # 1.3 K/uL (0.0-0.8); MONO % 5.9 % (0.0-10.0); NEUT # 20.2 K/uL (1.8-7.0); NEUT % 89.1 % (50.0-75.0); PLATELET COUNT 176 K/uL (130-400); RBC 4.04 Mil/uL (3.80-5.20); RED CELL DISTRIBUTION WIDTH 14.9 % (11.5-14.5); WHITE BLOOD COUNT 22.7 K/uL (4.8-10.8)
[2017-08-08 06:47] LABS: ALB/GLOB RATIO 0.7 (1.0-2.1); ALBUMIN 2.7 g/dL (3.5-5.0); CALCIUM 8.3 mg/dl (8.6-10.4)
[2017-08-08 08:32] LABS: BANDS 3 % (0-2); LYMPHOCYTE 5 % (20-40); MONOCYTE 5 % (0-10); NEUTROPHIL 87 % (50-75); PLATELET ESTIMATE NORMAL (NORMAL); TOTAL CELLS COUNTED 100
--- NOTE | 2017-08-08 08:39 | RAD ---
Chest x-ray single frontal view History: Post triple-lumen catheter insertion. Comparison: 08/07/2017 Findings: Right central venous catheter tip extending to the level of the cavoatrial junction. Biapical pleural thickening with upper lobe granulomatous changes. Scattered nodularity throughout both lung perez. Prominent diffuse increased interstitial lung markings bilaterally suggestive for edema versus infiltrate versus congestion. Clinical correlation. More confluent consolidative opacities in the left mid to lower lung zone as well as within the right infrahilar region and right lung base. Bilateral hilar prominence. Cardiomegaly. Calcification at the aortic knob. Degenerative changes in the spine and shoulders. Multiple external wires and tubing. Surgical clips in the right axilla. Impression: Right central venous catheter tip extending to the level of the cavoatrial junction. Biapical pleural thickening with upper lobe granulomatous changes. Scattered nodularity throughout both lung perez. Prominent diffuse increased interstitial lung markings bilaterally suggestive for edema versus infiltrate versus congestion. Clinical correlation. More confluent consolidative opacities in the left mid to lower lung zone as well as within the right infrahilar region and right lung base. Bilateral hilar prominence. Cardiomegaly. Calcification at the aortic knob. Degenerative changes in the spine and shoulders. Multiple external wires and tubing. Surgical clips in the right axilla.
--- NOTE | 2017-08-08 09:36 | HP ---
CHIEF COMPLAINT: Altered mental status. HISTORY OF PRESENT ILLNESS: This is an 87-year-old female, well known to me with history of osteoarthritis of the knee, COPD, hypertension, hyperlipidemia, advanced Alzheimer's dementia, and diabetes who is in the [facility]dc. She is compliant with her current medications. The patient is mostly agitated, restless, and crying. The patient is a poor historian. She is not able to make her needs known to anybody. The patient gets visited by her family on a regular basis, and on the day of admission, fdc nurse found the patient to be unresponsive, lethargic, weak, febrile, and 911 nurse called. The patient was brought into emergency room. No details are obtainable as patient is in diabetic ketoacidosis with altered mental status. She is febrile. She is septic. She has chills, rigors. No nausea. There is no further details obtainable. The patient is not arousable, and she is a poor historian. PAST MEDICAL HISTORY: Anxiety, diabetes, hypertension, hyperlipidemia, osteoarthritis, COPD. SOCIAL HISTORY: She is a nonsmoker, non-EtOH user. CURRENT MEDICATIONS AND ALLERGIES: In the computer. PHYSICAL EXAMINATION: GENERAL: An elderly female, who is drowsy, who is not arousable. VITAL SIGNS: Blood pressure 98/46, pulse 126, respiratory rate 29, temperature 100.4. SKIN: Senile turgor. No bruises. No purpura. HEENT: Atraumatic and normocephalic. Negative pallor. Negative jaundice. Extraocular movements are intact. NECK: Supple. No JVD. LUNGS: Bilateral decreased air entry. Few rhonchi. CVS: S1 and S2, regular. ABDOMEN: Soft and nontender. Bowel sounds are positive. RECTAL AND PELVIC: Deferred. EXTREMITIES: No clubbing, cyanosis, or edema. CENTRAL NERVOUS SYSTEM: The patient is unresponsive. ASSESSMENT: 1. Diabetic ketoacidosis. 2. Urinary tract infection with septicemia. 3. Dehydration. 4. Hypertension. PLAN: Admit. Detailed orders written. Mccallum cultures, antibiotics, monitor the patient. John Fay MD [facility] # [id number]
--- NOTE | 2017-08-08 10:59 | CP.CCUPN ---
<Codie Davis - Last Filed: 08/08/17 13:42> CCU Subjective - Physician Review Subjective (Free Text): Patient has been seen and examined. Daughters were at bedside. ROS could not be obtained due to mental status (Severe End-Stage Dementia) CCU Objective - Vital Signs / Intake & Output Vital Signs (Last 4 hours): Vital Signs Pulse Resp BP Pulse Ox 08/08/17 09:14 118 H 22 104/47 L 100 08/08/17 08:14 98 H 12 97/41 L 100 08/08/17 07:14 103 H 18 112/52 L 100 Intake and Output (Last 8hrs): Intake & Output 08/07/17 08/08/17 08/08/17 22:59 06:59 14:59 Intake Total 1250 850 400 Output Total 545 650 360 Balance 705 200 40 Weight 167 lb Intake: Intake, IV Amount 1250 850 400 Left Hand 150 Left Wrist 1100 850 400 Oral 0 Output: Urine 545 650 360 Urethral (Rojas) 545 650 360 Other: # Bowel Movements 0 1 - Physical Exam Physical Exam Limitations: Positive for: Altered Mental Status Head: Positive for: Atraumatic, Normocephalic Pupils: Positive for: PERRL Conjunctiva: Positive for: Normal Nose (External): Positive for: Atraumatic Respiratory/Chest: Positive for: Clear to Auscultation, Decreased Breath Sounds (lung Base, B/L.). Negative for: Wheezes Cardiovascular: Positive for: Normal S1, S2, Tachycardic. Negative for: Irregular Rhythm Abdomen: Positive for: Normal Bowel Sounds Upper Extremity: Positive for: Temperature Abnormalties (Cool Distal Extremeties ) Lower Extremity: Positive for: Temperature Abnormalties (Cool Distal Extremeties ) Neurological: Negative for: GCS=15 (GCS=5) Skin: Positive for: Other (Echymosis in Upper Extremities. ) - Medications Active Medications: Active Medications Generic Name Dose Route Start Last Admin Trade Name Freq PRN Reason Stop Dose Admin Heparin Sodium (Porcine) 5,000 units 08/07/17 10:00 08/08/17 09:39 Heparin SC 5,000 units Q12 ANGELIA Administration Doxycycline Hyclate 100 mg/ 100 mls @ 100 mls/hr 08/07/17 04:30 08/08/17 04: 00 Sodium Chloride IVPB 100 mls/hr Q12H ANGELIA Administration Protocol Sodium Chloride 1,000 mls @ 100 mls/hr 08/07/17 18:00 08/08/17 04:08 Sodium Chloride 0.45% IV Not Given .Q10H ANGELIA Piperacillin Sod/Tazobactam 100 mls @ 100 mls/hr 08/08/17 11:15 Sod 2.25 gm/ Sodium Chloride IV Q6H [facility] Protocol Insulin Human Regular 0 unit 08/08/17 00:00 08/08/17 06:00 Novolin R SC Not Given Q6H [facility] Protocol Pantoprazole Sodium 40 mg 08/07/17 10:00 08/08/17 09:39 Protonix Inj IVP 40 mg DAILY ANGELIA Administration - Patient Studies Lab Studies: Microbiology Studies 08/07/17 Unknown Blood Culture - Preliminary Blood NO GROWTH AFTER 24 HOURS 08/07/17 Unknown Blood Culture - Preliminary Blood NO GROWTH AFTER 24 HOURS Lab Studies 08/08/17 08/08/17 08/08/17 Range/Units 06:41 06:27 06:27 WBC 22.7 H (4.8-10.8) K/uL RBC 4.04 (3.80-5.20) Mil/uL Hgb 12.4 (11.0-16.0) g/dL Hct 39.1 (34.0-47.0) % MCV 96.8 D (81.0-99.0) fL MCH 30.8 (27.0-31.0) pg MCHC 31.8 L (33.0-37.0) g/dL RDW 14.9 H (11.5-14.5) % Plt Count 176 (130-400) K/uL MPV 10.6 (7.2-11.7) fL Neut % (Auto) 89.1 H (50.0-75.0) % Lymph % (Auto) 4.9 L (20.0-40.0) % [place] % (Auto) 5.9 (0.0-10.0) % Eos % (Auto) 0.0 (0.0-4.0) % Baso % (Auto) 0.1 (0.0-2.0) % Neut # (Auto) 20.2 H (1.8-7.0) K/uL Lymph # (Auto) 1.1 (1.0-4.3) K/uL [place] # (Auto) 1.3 H (0.0-0.8) K/uL Eos # (Auto) 0.0 (0.0-0.7) K/uL Baso # (Auto) 0.0 (0.0-0.2) K/uL Neutrophils % (Manual) 87 H (50-75) % Band Neutrophils % 3 H (0-2) % Lymphocytes % (Manual) 5 L (20-40) % Monocytes % (Manual) 5 (0-10) % Platelet Estimate Normal (NORMAL) RBC Morphology Normal Sodium 155 H (132-148) mmol/L Potassium 3.8 (3.6-5.2) mmol/L Chloride 121 H (98-107) mmol/L Carbon Dioxide 20 L (22-30) mmol/L Anion Gap 17 (10-20) BUN 41 H (7-17) mg/dL Creatinine 1.3 H (0.7-1.2) mg/dL Est GFR ( Amer) 47 Est GFR (Non-Af Amer) 39 POC Glucose (mg/dL) 290 H (65-110) mg/dL Random Glucose 326 H (65-105) mg/dL Calcium 8.3 L (8.6-10.4) mg/dl Phosphorus 3.3 (2.5-4.5) mg/dL Magnesium 2.3 (1.6-2.3) mg/dL Total Bilirubin 0.6 (0.2-1.3) mg/dL AST 43 H D (14-36) U/L ALT 27 (9-52) U/L Alkaline Phosphatase 102 (38-126) U/L Total Protein 6.6 (6.3-8.3) g/dL Albumin 2.7 L (3.5-5.0) g/dL Globulin 4.0 H (2.2-3.9) gm/dL Albumin/Globulin Ratio 0.7 L (1.0-2.1) 08/08/17 08/07/17 08/07/17 Range/Units 00:18 21:15 19:06 WBC (4.8-10.8) K/uL RBC (3.80-5.20) Mil/uL Hgb (11.0-16.0) g/dL Hct (34.0-47.0) % MCV (81.0-99.0) fL MCH (27.0-31.0) pg MCHC (33.0-37.0) g/dL RDW (11.5-14.5) % Plt Count (130-400) K/uL MPV (7.2-11.7) fL Neut % (Auto) (50.0-75.0) % Lymph % (Auto) (20.0-40.0) % [place] % (Auto) (0.0-10.0) % Eos % (Auto) (0.0-4.0) % Baso % (Auto) (0.0-2.0) % Neut # (Auto) (1.8-7.0) K/uL Lymph # (Auto) (1.0-4.3) K/uL [place] # (Auto) (0.0-0.8) K/uL Eos # (Auto) (0.0-0.7) K/uL Baso # (Auto) (0.0-0.2) K/uL Neutrophils % (Manual) (50-75) % Band Neutrophils % (0-2) % Lymphocytes % (Manual) (20-40) % Monocytes % (Manual) (0-10) % Platelet Estimate (NORMAL) RBC Morphology Sodium (132-148) mmol/L Potassium (3.6-5.2) mmol/L Chloride (98-107) mmol/L Carbon Dioxide (22-30) mmol/L Anion Gap (10-20) BUN (7-17) mg/dL Creatinine (0.7-1.2) mg/dL Est GFR ( Amer) Est GFR (Non-Af Amer) POC Glucose (mg/dL) 285 H 242 H 265 H (65-110) mg/dL Random Glucose (65-105) mg/dL Calcium (8.6-10.4) mg/dl Phosphorus (2.5-4.5) mg/dL Magnesium (1.6-2.3) mg/dL Total Bilirubin (0.2-1.3) mg/dL AST (14-36) U/L ALT (9-52) U/L Alkaline Phosphatase (38-126) U/L Total Protein (6.3-8.3) g/dL Albumin (3.5-5.0) g/dL Globulin (2.2-3.9) gm/dL Albumin/Globulin Ratio (1.0-2.1) 08/07/17 08/07/17 08/07/17 Range/Units 16:56 15:21 13:11 WBC (4.8-10.8) K/uL RBC (3.80-5.20) Mil/uL Hgb (11.0-16.0) g/dL Hct (34.0-47.0) % MCV (81.0-99.0) fL MCH (27.0-31.0) pg MCHC (33.0-37.0) g/dL RDW (11.5-14.5) % Plt Count (130-400) K/uL MPV (7.2-11.7) fL Neut % (Auto) (50.0-75.0) % Lymph % (Auto) (20.0-40.0) % [place] % (Auto) (0.0-10.0) % Eos % (Auto) (0.0-4.0) % Baso % (Auto) (0.0-2.0) % Neut # (Auto) (1.8-7.0) K/uL Lymph # (Auto) (1.0-4.3) K/uL [place] # (Auto) (0.0-0.8) K/uL Eos # (Auto) (0.0-0.7) K/uL Baso # (Auto) (0.0-0.2) K/uL Neutrophils % (Manual) (50-75) % Band Neutrophils % (0-2) % Lymphocytes % (Manual) (20-40) % Monocytes % (Manual) (0-10) % Platelet Estimate (NORMAL) RBC Morphology Sodium (132-148) mmol/L Potassium (3.6-5.2) mmol/L Chloride (98-107) mmol/L Carbon Dioxide (22-30) mmol/L Anion Gap (10-20) BUN (7-17) mg/dL Creatinine (0.7-1.2) mg/dL Est GFR ( Amer) Est GFR (Non-Af Amer) POC Glucose (mg/dL) 189 H 200 H 177 H (65-110) mg/dL Random Glucose (65-105) mg/dL Calcium (8.6-10.4) mg/dl Phosphorus (2.5-4.5) mg/dL Magnesium (1.6-2.3) mg/dL Total Bilirubin (0.2-1.3) mg/dL AST (14-36) U/L ALT (9-52) U/L Alkaline Phosphatase (38-126) U/L Total Protein (6.3-8.3) g/dL Albumin (3.5-5.0) g/dL Globulin (2.2-3.9) gm/dL Albumin/Globulin Ratio (1.0-2.1) 08/07/17 08/07/17 Range/Units 12:06 11:06 WBC (4.8-10.8) K/uL RBC (3.80-5.20) Mil/uL Hgb (11.0-16.0) g/dL Hct (34.0-47.0) % MCV (81.0-99.0) fL MCH (27.0-31.0) pg MCHC (33.0-37.0) g/dL RDW (11.5-14.5) % Plt Count (130-400) K/uL MPV (7.2-11.7) fL Neut % (Auto) (50.0-75.0) % Lymph % (Auto) (20.0-40.0) % [place] % (Auto) (0.0-10.0) % Eos % (Auto) (0.0-4.0) % Baso % (Auto) (0.0-2.0) % Neut # (Auto) (1.8-7.0) K/uL Lymph # (Auto) (1.0-4.3) K/uL [place] # (Auto) (0.0-0.8) K/uL Eos # (Auto) (0.0-0.7) K/uL Baso # (Auto) (0.0-0.2) K/uL Neutrophils % (Manual) (50-75) % Band Neutrophils % (0-2) % Lymphocytes % (Manual) (20-40) % Monocytes % (Manual) (0-10) % Platelet Estimate (NORMAL) RBC Morphology Sodium (132-148) mmol/L Potassium (3.6-5.2) mmol/L Chloride (98-107) mmol/L Carbon Dioxide (22-30) mmol/L Anion Gap (10-20) BUN (7-17) mg/dL Creatinine (0.7-1.2) mg/dL Est GFR ( Amer) Est GFR (Non-Af Amer) POC Glucose (mg/dL) 191 H 240 H (65-110) mg/dL Random Glucose (65-105) mg/dL Calcium (8.6-10.4) mg/dl Phosphorus (2.5-4.5) mg/dL Magnesium (1.6-2.3) mg/dL Total Bilirubin (0.2-1.3) mg/dL AST (14-36) U/L ALT (9-52) U/L Alkaline Phosphatase (38-126) U/L Total Protein (6.3-8.3) g/dL Albumin (3.5-5.0) g/dL Globulin (2.2-3.9) gm/dL Albumin/Globulin Ratio (1.0-2.1) Laboratory Results - last 24 hr 08/07/17 08/07/17 08/07/17 11:06 12:06 13:11 WBC RBC Hgb Hct MCV MCH MCHC RDW Plt Count MPV Neut % (Auto) Lymph % (Auto) [place] % (Auto) Eos % (Auto) Baso % (Auto) Neut # (Auto) Lymph # (Auto) [place] # (Auto) Eos # (Auto) Baso # (Auto) Neutrophils % (Manual) Band Neutrophils % Lymphocytes % (Manual) Monocytes % (Manual) Platelet Estimate RBC Morphology Sodium Potassium Chloride Carbon Dioxide Anion Gap BUN Creatinine Est GFR ( Amer) Est GFR (Non-Af Amer) POC Glucose (mg/dL) 240 H 191 H 177 H Random Glucose Calcium Phosphorus Magnesium Total Bilirubin AST ALT Alkaline Phosphatase Total Protein Albumin Globulin Albumin/Globulin Ratio 08/07/17 08/07/17 08/07/17 15:21 16:56 19:06 WBC RBC Hgb Hct MCV MCH MCHC RDW Plt Count MPV Neut % (Auto) Lymph % (Auto) [place] % (Auto) Eos % (Auto) Baso % (Auto) Neut # (Auto) Lymph # (Auto) [place] # (Auto) Eos # (Auto) Baso # (Auto) Neutrophils % (Manual) Band Neutrophils % Lymphocytes % (Manual) Monocytes % (Manual) Platelet Estimate RBC Morphology Sodium Potassium Chloride Carbon Dioxide Anion Gap BUN Creatinine Est GFR ( Amer) Est GFR (Non-Af Amer) POC Glucose (mg/dL) 200 H 189 H 265 H Random Glucose Calcium Phosphorus Magnesium Total Bilirubin AST ALT Alkaline Phosphatase Total Protein Albumin Globulin Albumin/Globulin Ratio 08/07/17 08/08/17 08/08/17 21:15 00:18 06:27 WBC 22.7 H RBC 4.04 Hgb 12.4 Hct 39.1 MCV 96.8 D MCH 30.8 MCHC 31.8 L RDW 14.9 H Plt Count 176 MPV 10.6 Neut % (Auto) 89.1 H Lymph % (Auto) 4.9 L [place] % (Auto) 5.9 Eos % (Auto) 0.0 Baso % (Auto) 0.1 Neut # (Auto) 20.2 H Lymph # (Auto) 1.1 [place] # (Auto) 1.3 H Eos # (Auto) 0.0 Baso # (Auto) 0.0 Neutrophils % (Manual) 87 H Band Neutrophils % 3 H Lymphocytes % (Manual) 5 L Monocytes % (Manual) 5 Platelet Estimate Normal RBC Morphology Normal Sodium Potassium Chloride Carbon Dioxide Anion Gap BUN Creatinine Est GFR ( Amer) Est GFR (Non-Af Amer) POC Glucose (mg/dL) 242 H 285 H Random Glucose Calcium Phosphorus Magnesium Total Bilirubin AST ALT Alkaline Phosphatase Total Protein Albumin Globulin Albumin/Globulin Ratio 08/08/17 08/08/17 06:27 06:41 WBC RBC Hgb Hct MCV MCH MCHC RDW Plt Count MPV Neut % (Auto) Lymph % (Auto) [place] % (Auto) Eos % (Auto) Baso % (Auto) Neut # (Auto) Lymph # (Auto) [place] # (Auto) Eos # (Auto) Baso # (Auto) Neutrophils % (Manual) Band Neutrophils % Lymphocytes % (Manual) Monocytes % (Manual) Platelet Estimate RBC Morphology Sodium 155 H Potassium 3.8 Chloride 121 H Carbon Dioxide 20 L Anion Gap 17 BUN 41 H Creatinine 1.3 H Est GFR ( Amer) 47 Est GFR (Non-Af Amer) 39 POC Glucose (mg/dL) 290 H Random Glucose 326 H Calcium 8.3 L Phosphorus 3.3 Magnesium 2.3 Total Bilirubin 0.6 AST 43 H D ALT 27 Alkaline Phosphatase 102 Total Protein 6.6 Albumin 2.7 L Globulin 4.0 H Albumin/Globulin Ratio 0.7 L Fingerstick Blood Sugar Results: 290 Review of Systems - Review of Systems Systems not reviewed;Unavailable: Altered Mental Status Assessment/Plan - Assessment and Plan (Free Text) Assessment: 87 year old female with PMHx of Dementia, Falls, CHF, COPD, Breast CA s/p Mastectomy, Pulmonary Fibrosis, Pneumonia, and DM II presented with AMS. Patient in ICU for evaluation and treatment of AMS likely 2/2 to Sepsis 2/2 to PNA vs UTI. <Ibrahima Rajan - Last Filed: 08/08/17 16:34> CCU Objective - Vital Signs / Intake & Output Vital Signs (Last 4 hours): Vital Signs Pulse Resp BP Pulse Ox 08/08/17 15:14 100 H 22 117/47 L 100 08/08/17 14:14 98 H 21 103/49 L 100 08/08/17 13:14 102 H 22 110/46 L 100 Intake and Output (Last 8hrs): Intake & Output 08/08/17 08/08/17 08/08/17 06:59 14:59 22:59 Intake Total 850 800 200 Output Total 650 690 150 Balance 200 110 50 Weight 167 lb Intake: Intake, IV Amount 850 800 200 Left Wrist 850 800 200 Output: Urine 650 690 150 Urethral (Rojas) 650 690 150 Other: # Bowel Movements 0 1 - Medications Active Medications: Active Medications Generic Name Dose Route Start Last Admin Trade Name Freq PRN Reason Stop Dose Admin Heparin Sodium (Porcine) 5,000 units 08/07/17 10:00 08/08/17 09:39 Heparin SC 5,000 units Q12 ANGELIA Administration Doxycycline Hyclate 100 mg/ 100 mls @ 100 mls/hr 08/07/17 04:30 08/08/17 15: 30 Sodium Chloride IVPB 100 mls/hr Q12H ANGELIA Administration Protocol Sodium Chloride 1,000 mls @ 100 mls/hr 08/07/17 18:00 08/08/17 15:54 Sodium Chloride 0.45% IV 100 mls/hr .Q10H ANGELIA Administration Piperacillin Sod/Tazobactam 100 mls @ 100 mls/hr 08/08/17 11:15 05/10/18 16: 15 Sod 2.25 gm/ Sodium Chloride IV 100 mls/hr Q6H [facility] Administration Protocol Insulin Human Regular 0 unit 08/08/17 00:00 08/08/17 12:31 Novolin R SC Not Given Q6H [facility] Protocol Pantoprazole Sodium 40 mg 08/07/17 10:00 08/08/17 09:39 Protonix Inj IVP 40 mg DAILY ANGELIA Administration - Patient Studies Lab Studies: Microbiology Studies 08/07/17 04:50 MRSA Culture (Admit) - Final Nose MRSA NOT DETECTED 08/07/17 Unknown S.aureus & Coag-Neg Staph PNA FISH - Final Blood Blood Culture - Preliminary Gram Positive Cocci Gram Stain - Final 08/07/17 Unknown Blood Culture - Preliminary Blood NO GROWTH AFTER 24 HOURS Lab Studies 08/08/17 08/08/17 08/08/17 Range/Units 13:22 13:22 11:47 WBC (4.8-10.8) K/uL RBC (3.80-5.20) Mil/uL Hgb (11.0-16.0) g/dL Hct (34.0-47.0) % MCV (81.0-99.0) fL MCH (27.0-31.0) pg MCHC (33.0-37.0) g/dL RDW (11.5-14.5) % Plt Count (130-400) K/uL MPV (7.2-11.7) fL Neut % (Auto) (50.0-75.0) % Lymph % (Auto) (20.0-40.0) % [place] % (Auto) (0.0-10.0) % Eos % (Auto) (0.0-4.0) % Baso % (Auto) (0.0-2.0) % Neut # (Auto) (1.8-7.0) K/uL Lymph # (Auto) (1.0-4.3) K/uL [place] # (Auto) (0.0-0.8) K/uL Eos # (Auto) (0.0-0.7) K/uL Baso # (Auto) (0.0-0.2) K/uL Neutrophils % (Manual) (50-75) % Band Neutrophils % (0-2) % Lymphocytes % (Manual) (20-40) % Monocytes % (Manual) (0-10) % Platelet Estimate (NORMAL) RBC Morphology Sodium (132-148) mmol/L Potassium (3.6-5.2) mmol/L Chloride (98-107) mmol/L Carbon Dioxide (22-30) mmol/L Anion Gap (10-20) BUN (7-17) mg/dL Creatinine (0.7-1.2) mg/dL Est GFR ( Amer) Est GFR (Non-Af Amer) POC Glucose (mg/dL) 279 H (65-110) mg/dL Random Glucose (65-105) mg/dL Serum Osmolality 344 H (272-300) mosm/kg Calcium (8.6-10.4) mg/dl Phosphorus (2.5-4.5) mg/dL Magnesium (1.6-2.3) mg/dL Total Bilirubin (0.2-1.3) mg/dL AST (14-36) U/L ALT (9-52) U/L Alkaline Phosphatase (38-126) U/L Total Protein (6.3-8.3) g/dL Albumin (3.5-5.0) g/dL Globulin (2.2-3.9) gm/dL Albumin/Globulin Ratio (1.0-2.1) Urine Osmolality 585 (300-1000) mosm/kg Ur Random Sodium 58 mmol/L 08/08/17 08/08/17 08/08/17 Range/Units 06:41 06:27 06:27 WBC 22.7 H (4.8-10.8) K/uL RBC 4.04 (3.80-5.20) Mil/uL Hgb 12.4 (11.0-16.0) g/dL Hct 39.1 (34.0-47.0) % MCV 96.8 D (81.0-99.0) fL MCH 30.8 (27.0-31.0) pg MCHC 31.8 L (33.0-37.0) g/dL RDW 14.9 H (11.5-14.5) % Plt Count 176 (130-400) K/uL MPV 10.6 (7.2-11.7) fL Neut % (Auto) 89.1 H (50.0-75.0) % Lymph % (Auto) 4.9 L (20.0-40.0) % [place] % (Auto) 5.9 (0.0-10.0) % Eos % (Auto) 0.0 (0.0-4.0) % Baso % (Auto) 0.1 (0.0-2.0) % Neut # (Auto) 20.2 H (1.8-7.0) K/uL Lymph # (Auto) 1.1 (1.0-4.3) K/uL [place] # (Auto) 1.3 H (0.0-0.8) K/uL Eos # (Auto) 0.0 (0.0-0.7) K/uL Baso # (Auto) 0.0 (0.0-0.2) K/uL Neutrophils % (Manual) 87 H (50-75) % Band Neutrophils % 3 H (0-2) % Lymphocytes % (Manual) 5 L (20-40) % Monocytes % (Manual) 5 (0-10) % Platelet Estimate Normal (NORMAL) RBC Morphology Normal Sodium 155 H (132-148) mmol/L Potassium 3.8 (3.6-5.2) mmol/L Chloride 121 H (98-107) mmol/L Carbon Dioxide 20 L (22-30) mmol/L Anion Gap 17 (10-20) BUN 41 H (7-17) mg/dL Creatinine 1.3 H (0.7-1.2) mg/dL Est GFR ( Amer) 47 Est GFR (Non-Af Amer) 39 POC Glucose (mg/dL) 290 H (65-110) mg/dL Random Glucose 326 H (65-105) mg/dL Serum Osmolality (272-300) mosm/kg Calcium 8.3 L (8.6-10.4) mg/dl Phosphorus 3.3 (2.5-4.5) mg/dL Magnesium 2.3 (1.6-2.3) mg/dL Total Bilirubin 0.6 (0.2-1.3) mg/dL AST 43 H D (14-36) U/L ALT 27 (9-52) U/L Alkaline Phosphatase 102 (38-126) U/L Total Protein 6.6 (6.3-8.3) g/dL Albumin 2.7 L (3.5-5.0) g/dL Globulin 4.0 H (2.2-3.9) gm/dL Albumin/Globulin Ratio 0.7 L (1.0-2.1) Urine Osmolality (300-1000) mosm/kg Ur Random Sodium mmol/L 08/08/17 08/07/17 08/07/17 Range/Units 00:18 21:15 19:06 WBC (4.8-10.8) K/uL RBC (3.80-5.20) Mil/uL Hgb (11.0-16.0) g/dL Hct (34.0-47.0) % MCV (81.0-99.0) fL MCH (27.0-31.0) pg MCHC (33.0-37.0) g/dL RDW (11.5-14.5) % Plt Count (130-400) K/uL MPV (7.2-11.7) fL Neut % (Auto) (50.0-75.0) % Lymph % (Auto) (20.0-40.0) % [place] % (Auto) (0.0-10.0) % Eos % (Auto) (0.0-4.0) % Baso % (Auto) (0.0-2.0) % Neut # (Auto) (1.8-7.0) K/uL Lymph # (Auto) (1.0-4.3) K/uL [place] # (Auto) (0.0-0.8) K/uL Eos # (Auto) (0.0-0.7) K/uL Baso # (Auto) (0.0-0.2) K/uL Neutrophils % (Manual) (50-75) % Band Neutrophils % (0-2) % Lymphocytes % (Manual) (20-40) % Monocytes % (Manual) (0-10) % Platelet Estimate (NORMAL) RBC Morphology Sodium (132-148) mmol/L Potassium (3.6-5.2) mmol/L Chloride (98-107) mmol/L Carbon Dioxide (22-30) mmol/L Anion Gap (10-20) BUN (7-17) mg/dL Creatinine (0.7-1.2) mg/dL Est GFR ( Amer) Est GFR (Non-Af Amer) POC Glucose (mg/dL) 285 H 242 H 265 H (65-110) mg/dL Random Glucose (65-105) mg/dL Serum Osmolality (272-300) mosm/kg Calcium (8.6-10.4) mg/dl Phosphorus (2.5-4.5) mg/dL Magnesium (1.6-2.3) mg/dL Total Bilirubin (0.2-1.3) mg/dL AST (14-36) U/L ALT (9-52) U/L Alkaline Phosphatase (38-126) U/L Total Protein (6.3-8.3) g/dL Albumin (3.5-5.0) g/dL Globulin (2.2-3.9) gm/dL Albumin/Globulin Ratio (1.0-2.1) Urine Osmolality (300-1000) mosm/kg Ur Random Sodium mmol/L 08/07/17 Range/Units 16:56 WBC (4.8-10.8) K/uL RBC (3.80-5.20) Mil/uL Hgb (11.0-16.0) g/dL Hct (34.0-47.0) % MCV (81.0-99.0) fL MCH (27.0-31.0) pg MCHC (33.0-37.0) g/dL RDW (11.5-14.5) % Plt Count (130-400) K/uL MPV (7.2-11.7) fL Neut % (Auto) (50.0-75.0) % Lymph % (Auto) (20.0-40.0) % [place] % (Auto) (0.0-10.0) % Eos % (Auto) (0.0-4.0) % Baso % (Auto) (0.0-2.0) % Neut # (Auto) (1.8-7.0) K/uL Lymph # (Auto) (1.0-4.3) K/uL [place] # (Auto) (0.0-0.8) K/uL Eos # (Auto) (0.0-0.7) K/uL Baso # (Auto) (0.0-0.2) K/uL Neutrophils % (Manual) (50-75) % Band Neutrophils % (0-2) % Lymphocytes % (Manual) (20-40) % Monocytes % (Manual) (0-10) % Platelet Estimate (NORMAL) RBC Morphology Sodium (132-148) mmol/L Potassium (3.6-5.2) mmol/L Chloride (98-107) mmol/L Carbon Dioxide (22-30) mmol/L Anion Gap (10-20) BUN (7-17) mg/dL Creatinine (0.7-1.2) mg/dL Est GFR ( Amer) Est GFR (Non-Af Amer) POC Glucose (mg/dL) 189 H (65-110) mg/dL Random Glucose (65-105) mg/dL Serum Osmolality (272-300) mosm/kg Calcium (8.6-10.4) mg/dl Phosphorus (2.5-4.5) mg/dL Magnesium (1.6-2.3) mg/dL Total Bilirubin (0.2-1.3) mg/dL AST (14-36) U/L ALT (9-52) U/L Alkaline Phosphatase (38-126) U/L Total Protein (6.3-8.3) g/dL Albumin (3.5-5.0) g/dL Globulin (2.2-3.9) gm/dL Albumin/Globulin Ratio (1.0-2.1) Urine Osmolality (300-1000) mosm/kg Ur Random Sodium mmol/L Laboratory Results - last 24 hr 08/07/17 08/07/17 08/07/17 16:56 19:06 21:15 WBC RBC Hgb Hct MCV MCH MCHC RDW Plt Count MPV Neut % (Auto) Lymph % (Auto) [place] % (Auto) Eos % (Auto) Baso % (Auto) Neut # (Auto) Lymph # (Auto) [place] # (Auto) Eos # (Auto) Baso # (Auto) Neutrophils % (Manual) Band Neutrophils % Lymphocytes % (Manual) Monocytes % (Manual) Platelet Estimate RBC Morphology Sodium Potassium Chloride Carbon Dioxide Anion Gap BUN Creatinine Est GFR ( Amer) Est GFR (Non-Af Amer) POC Glucose (mg/dL) 189 H 265 H 242 H Random Glucose Serum Osmolality Calcium Phosphorus Magnesium Total Bilirubin AST ALT Alkaline Phosphatase Total Protein Albumin Globulin Albumin/Globulin Ratio Urine Osmolality Ur Random Sodium 08/08/17 08/08/17 08/08/17 00:18 06:27 06:27 WBC 22.7 H RBC 4.04 Hgb 12.4 Hct 39.1 MCV 96.8 D MCH 30.8 MCHC 31.8 L RDW 14.9 H Plt Count 176 MPV 10.6 Neut % (Auto) 89.1 H Lymph % (Auto) 4.9 L [place] % (Auto) 5.9 Eos % (Auto) 0.0 Baso % (Auto) 0.1 Neut # (Auto) 20.2 H Lymph # (Auto) 1.1 [place] # (Auto) 1.3 H Eos # (Auto) 0.0 Baso # (Auto) 0.0 Neutrophils % (Manual) 87 H Band Neutrophils % 3 H Lymphocytes % (Manual) 5 L Monocytes % (Manual) 5 Platelet Estimate Normal RBC Morphology Normal Sodium 155 H Potassium 3.8 Chloride 121 H Carbon Dioxide 20 L Anion Gap 17 BUN 41 H Creatinine 1.3 H Est GFR ( Amer) 47 Est GFR (Non-Af Amer) 39 POC Glucose (mg/dL) 285 H Random Glucose 326 H Serum Osmolality Calcium 8.3 L Phosphorus 3.3 Magnesium 2.3 Total Bilirubin 0.6 AST 43 H D ALT 27 Alkaline Phosphatase 102 Total Protein 6.6 Albumin 2.7 L Globulin 4.0 H Albumin/Globulin Ratio 0.7 L Urine Osmolality Ur Random Sodium 08/08/17 08/08/17 08/08/17 06:41 11:47 13:22 WBC RBC Hgb Hct MCV MCH MCHC RDW Plt Count MPV Neut % (Auto) Lymph % (Auto) [place] % (Auto) Eos % (Auto) Baso % (Auto) Neut # (Auto) Lymph # (Auto) [place] # (Auto) Eos # (Auto) Baso # (Auto) Neutrophils % (Manual) Band Neutrophils % Lymphocytes % (Manual) Monocytes % (Manual) Platelet Estimate RBC Morphology Sodium Potassium Chloride Carbon Dioxide Anion Gap BUN Creatinine Est GFR ( Amer) Est GFR (Non-Af Amer) POC Glucose (mg/dL) 290 H 279 H Random Glucose Serum Osmolality 344 H Calcium Phosphorus Magnesium Total Bilirubin AST ALT Alkaline Phosphatase Total Protein Albumin Globulin Albumin/Globulin Ratio Urine Osmolality Ur Random Sodium 08/08/17 13:22 WBC RBC Hgb Hct MCV MCH MCHC RDW Plt Count MPV Neut % (Auto) Lymph % (Auto) [place] % (Auto) Eos % (Auto) Baso % (Auto) Neut # (Auto) Lymph # (Auto) [place] # (Auto) Eos # (Auto) Baso # (Auto) Neutrophils % (Manual) Band Neutrophils % Lymphocytes % (Manual) Monocytes % (Manual) Platelet Estimate RBC Morphology Sodium Potassium Chloride Carbon Dioxide Anion Gap BUN Creatinine Est GFR ( Amer) Est GFR (Non-Af Amer) POC Glucose (mg/dL) Random Glucose Serum Osmolality Calcium Phosphorus Magnesium Total Bilirubin AST ALT Alkaline Phosphatase Total Protein Albumin Globulin Albumin/Globulin Ratio Urine Osmolality 585 Ur Random Sodium 58 EKG/Cardiology Studies: Cardiology / EKG Studies 08/08/17 11:06 EKG [ELECTROCARDIOGRAM] Stat Comment: Mode Of Transportation: Reason For Exam: SVT on Monitor Attending/Attestation - Attestation I have personally seen and examined this patient.: Yes I have fully participated in the care of the patient.: Yes I have reviewed all pertinent clinical information: Yes Notes (Text): 08/08/17 16:27 I have seen and examined the patient. Medical records, lab studies, and imaging were reviewed by me and a management plan was formulated on multidisciplinary rounds with resident Dr. Davis. I agree with their documented assessment and plan. 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 It was also decided that we should focus on the patient's comfort instead of prolonging her pain. Palliative care consult was called and family has agreed to hospice. Critical Care Time 35 minutes. Multi-disciplinary rounds were performed with house staff, nursing, speech therapy, respiratory therapy, pharmacy and nutrition with integrated input from the primary team/attending and other consulting services. The documented time is cumulative and includes review of patient data/exams/labs/chart review and examination of the patient on rounds and throughout the day; time is exclusive of any procedures or teaching time.
[2017-08-08 14:01] LABS: OSMOLALITY,URINE 585 mosm/kg (300-1000)
[2017-08-08 14:42] VITALS: TEMP 97.5
--- NOTE | 2017-08-08 15:04 | CP.PCM.CON ---
History of Present Illness - History of Present Illness History of Present Illness: Palliative consult Patient is a 87 yo female admitted from [place] where she was found unresponsive. Per daughter, patient stopped talking while ago, was not able to recognize anyone , and did not walk. Patient has been a [place] resident for [address] head on admission was not significant acute findings. PMH: Dementia, HTN, CHF, anxety, depression Soc. Hx: [place] resident, single, two daughters involved in care Fam. Hx: denied Review of Systems - Review of Systems All systems: reviewed and no additional remarkable complaints except Review of Systems: ROS obtaind from daughters at bed side. They are concerned with patient's nutrition Past Patient History - Infectious Disease Hx of Infectious Diseases: None - Past Medical History & Family History Past Medical History?: Yes - Past Social History Smoking Status: Unknown If Ever Smoked Alcohol: None Drugs: Denies Home Situation {Lives}: [facility] - CARDIAC Hx Congestive Heart Failure: Yes Hx Hypercholesterolemia: Yes Hx Hypertension: Yes - PULMONARY Hx Asthma: Yes Hx Chronic Obstructive Pulmonary Disease (COPD): Yes Hx Emphysema: Yes - NEUROLOGICAL Hx Dementia: Yes - HEENT Hx HEENT Problems: No - RENAL Hx Chronic Kidney Disease: No - ENDOCRINE/METABOLIC Hx Diabetes Mellitus Type 2: Yes - HEMATOLOGICAL/ONCOLOGICAL Hx Blood Disorders: Yes Hx Cancer: Yes (RIGHT BREAST CA) - INTEGUMENTARY Hx Dermatological Problems: No - MUSCULOSKELETAL/RHEUMATOLOGICAL Hx Arthritis: Yes - GASTROINTESTINAL Hx Gastrointestinal Disorders: Yes Hx Gastroesophageal Reflux: Yes Other/Comment: Esophagitis - GENITOURINARY/GYNECOLOGICAL Hx Genitourinary Disorders: No - PSYCHIATRIC Hx Anxiety: Yes Hx Depression: Yes Hx Substance Use: No - SURGICAL HISTORY Hx Surgeries: Yes Hx Mastectomy: Yes (Right mastectomy) Hx Orthopedic Surgery: Yes (left knee) - ANESTHESIA Hx Anesthesia: Yes Hx Anesthesia Reactions: No Hx Malignant Hyperthermia: No Meds Allergies/Adverse Reactions: Allergies Allergy/AdvReac Type Severity Reaction Status Date / Time No Known Allergies Allergy Verified 08/07/17 01:22 - Medications Medications: Current Medications Heparin Sodium (Porcine) (Heparin) 5,000 units SC Q12 [facility] Last Admin: 08/08/17 09:39 Dose: 5,000 units Doxycycline Hyclate 100 mg/ (Sodium Chloride) 100 mls @ 100 mls/hr IVPB Q12H ANGELIA PRN Reason: Protocol Last Admin: 08/08/17 04:00 Dose: 100 mls/hr Sodium Chloride (Sodium Chloride 0.45%) 1,000 mls @ 100 mls/hr IV .Q10H [facility] Last Admin: 08/08/17 04:08 Dose: Not Given Piperacillin Sod/Tazobactam (Sod 2.25 gm/ Sodium Chloride) 100 mls @ 100 mls/ hr IV Q6H ANGELIA PRN Reason: Protocol Last Admin: 08/08/17 12:15 Dose: 100 mls/hr Insulin Human Regular (Novolin R) 0 unit SC Q6H ANGELIA PRN Reason: Protocol Last Admin: 08/08/17 12:31 Dose: Not Given Pantoprazole Sodium (Protonix Inj) 40 mg IVP DAILY [facility] Last Admin: 08/08/17 09:39 Dose: 40 mg Physical Exam - Constitutional Appears: Chronically Ill - Head Exam Head Exam: ATRAUMATIC, NORMAL INSPECTION, NORMOCEPHALIC - Eye Exam Eye Exam: EOMI, Normal appearance, PERRL Pupil Exam: NORMAL ACCOMODATION, PERRL - ENT Exam ENT Exam: Mucous Membranes Moist, Normal Exam - Neck Exam Neck exam: Positive for: Normal Inspection - Respiratory Exam Respiratory Exam: Decreased Breath Sounds, NORMAL BREATHING PATTERN - Cardiovascular Exam Cardiovascular Exam: REGULAR RHYTHM - GI/Abdominal Exam GI & Abdominal Exam: Diminished Bowel Sounds - Rectal Exam Rectal Exam: Deferred - Extremities Exam Extremities exam: Positive for: pedal edema - Back Exam Back exam: NORMAL INSPECTION - Neurological Exam Neurological exam: Motor Sensory Deficit - Psychiatric Exam Psychiatric exam: Flat Affect - Skin Skin Exam: Normal Color Results - Vital Signs Recent Vital Signs: Last Vital Signs Temp 97.5 F L 08/08/17 12:00 Pulse 98 H 08/08/17 14:14 Resp 21 08/08/17 14:14 BP 103/49 L 08/08/17 14:14 Pulse Ox 100 08/08/17 14:14 - Labs Result Diagrams: 08/08/17 06:27 08/08/17 06:27 Labs: Laboratory Results - last 24 hr 08/07/17 08/07/17 08/07/17 15:21 16:56 19:06 WBC RBC Hgb Hct MCV MCH MCHC RDW Plt Count MPV Neut % (Auto) Lymph % (Auto) [place] % (Auto) Eos % (Auto) Baso % (Auto) Neut # (Auto) Lymph # (Auto) [place] # (Auto) Eos # (Auto) Baso # (Auto) Neutrophils % (Manual) Band Neutrophils % Lymphocytes % (Manual) Monocytes % (Manual) Platelet Estimate RBC Morphology Sodium Potassium Chloride Carbon Dioxide Anion Gap BUN Creatinine Est GFR ( Amer) Est GFR (Non-Af Amer) POC Glucose (mg/dL) 200 H 189 H 265 H Random Glucose Serum Osmolality Calcium Phosphorus Magnesium Total Bilirubin AST ALT Alkaline Phosphatase Total Protein Albumin Globulin Albumin/Globulin Ratio Urine Osmolality Ur Random Sodium 08/07/17 08/08/17 08/08/17 21:15 00:18 06:27 WBC 22.7 H RBC 4.04 Hgb 12.4 Hct 39.1 MCV 96.8 D MCH 30.8 MCHC 31.8 L RDW 14.9 H Plt Count 176 MPV 10.6 Neut % (Auto) 89.1 H Lymph % (Auto) 4.9 L [place] % (Auto) 5.9 Eos % (Auto) 0.0 Baso % (Auto) 0.1 Neut # (Auto) 20.2 H Lymph # (Auto) 1.1 [place] # (Auto) 1.3 H Eos # (Auto) 0.0 Baso # (Auto) 0.0 Neutrophils % (Manual) 87 H Band Neutrophils % 3 H Lymphocytes % (Manual) 5 L Monocytes % (Manual) 5 Platelet Estimate Normal RBC Morphology Normal Sodium Potassium Chloride Carbon Dioxide Anion Gap BUN Creatinine Est GFR ( Amer) Est GFR (Non-Af Amer) POC Glucose (mg/dL) 242 H 285 H Random Glucose Serum Osmolality Calcium Phosphorus Magnesium Total Bilirubin AST ALT Alkaline Phosphatase Total Protein Albumin Globulin Albumin/Globulin Ratio Urine Osmolality Ur Random Sodium 08/08/17 08/08/17 08/08/17 06:27 06:41 11:47 WBC RBC Hgb Hct MCV MCH MCHC RDW Plt Count MPV Neut % (Auto) Lymph % (Auto) [place] % (Auto) Eos % (Auto) Baso % (Auto) Neut # (Auto) Lymph # (Auto) [place] # (Auto) Eos # (Auto) Baso # (Auto) Neutrophils % (Manual) Band Neutrophils % Lymphocytes % (Manual) Monocytes % (Manual) Platelet Estimate RBC Morphology Sodium 155 H Potassium 3.8 Chloride 121 H Carbon Dioxide 20 L Anion Gap 17 BUN 41 H Creatinine 1.3 H Est GFR ( Amer) 47 Est GFR (Non-Af Amer) 39 POC Glucose (mg/dL) 290 H 279 H Random Glucose 326 H Serum Osmolality Calcium 8.3 L Phosphorus 3.3 Magnesium 2.3 Total Bilirubin 0.6 AST 43 H D ALT 27 Alkaline Phosphatase 102 Total Protein 6.6 Albumin 2.7 L Globulin 4.0 H Albumin/Globulin Ratio 0.7 L Urine Osmolality Ur Random Sodium 08/08/17 08/08/17 13:22 13:22 WBC RBC Hgb Hct MCV MCH MCHC RDW Plt Count MPV Neut % (Auto) Lymph % (Auto) [place] % (Auto) Eos % (Auto) Baso % (Auto) Neut # (Auto) Lymph # (Auto) [place] # (Auto) Eos # (Auto) Baso # (Auto) Neutrophils % (Manual) Band Neutrophils % Lymphocytes % (Manual) Monocytes % (Manual) Platelet Estimate RBC Morphology Sodium Potassium Chloride Carbon Dioxide Anion Gap BUN Creatinine Est GFR ( Amer) Est GFR (Non-Af Amer) POC Glucose (mg/dL) Random Glucose Serum Osmolality 344 H Calcium Phosphorus Magnesium Total Bilirubin AST ALT Alkaline Phosphatase Total Protein Albumin Globulin Albumin/Globulin Ratio Urine Osmolality 585 Ur Random Sodium 58 Assessment & Plan - Assessment and Plan (Free Text) Assessment: Palliative consult Full Code, no Advance directive on chart, PPS 10% I reviewed medical records, all diagnostic studies, examined patient in the bed. Patient is unresponsive to verbal and tactile stimuli. Breathing is deep and regular. Heart in ST. Abdomen soft, decreased bowl sounds. Rojas at bed side. Mild pedal edema. here is no spontaneous movements upper and lower extremities. BP 103/49, HR 98. WBC 22.7, Hb 12.4, Na high at 155, Phosph high at 121. Two daughters at bed side Dulce and Cheryl. I reviewed patient's clinical presentation. Doctor Ibrahima spoke to them already and I made sure the understood complexity of patient's condition. I offered more information on Dementia and elicited their expectations of care given to the patient. They both agreed that they seen rapid decline in patient's condition and were concerned about her comfort and nutrition. I explained that food PO is not an option as patient is not able to swallow due to AMS and could put her at risk of chocking or aspirating. Further more I suggested that their mother had achieved end of her life as Dementia progressed and that she was septic.At this point, comfort should be patient's priority. They stated understanding and agreed. Further, I offered more information on Hospice care, including no more blood work and other diagnostic studies . I reached to Dee Director with request for hospice eval as family requested. This was shared with ICU team and Doctor Ibrahima. Further Code status discussed. POLST introduced. Family choose DNR/DNI. ICU team made aware of Impression * Chronically ill lady with acute worsening of mental status resembling Coma * Sepsis * Malnutrition * Risk for pressure sores Suggestion * Comfort care only would be best level of care for his dying patient * DNR/DNI * Discharge planing to [facility] under Hospice care Advance planing 45 min
[2017-08-08 17:14] VITALS: BP 115/46; PULSE 96; RESP 21
--- NOTE | 2017-08-08 22:29 | CARD ---
APPROVED REPORT EKG Measurement Heart [id number] <Conclusion> Sinus tachycardia Right bundle branch block Left anterior fascicular block Bifascicular block Left ventricular hypertrophy with repolarization abnormality Abnormal ECG
--- NOTE | 2017-08-09 08:52 | CP.PCM.DIS ---
Provider - Provider Date of Admission: 08/07/17 03:02 Attending physician: John Fay MD Time Spent in preparation of Discharge (in minutes): 45 Hospital Course - Lab Results Lab Results: Micro Results 08/07/17 06:22 Urine,Catheterized Urine Culture - Final Klebsiella Pneumoniae Ssp Pneu 08/07/17 Unknown Blood Blood Culture - Preliminary NO GROWTH AFTER 48 HOURS 08/07/17 04:50 Nose MRSA Culture (Admit) - Final MRSA NOT DETECTED 08/07/17 Unknown Blood S.aureus & Coag-Neg Staph PNA FISH - Final 08/07/17 Unknown Blood Blood Culture - Preliminary Gram Positive Cocci 08/07/17 Unknown Blood Gram Stain - Final Most Recent Lab Values WBC 22.7 K/uL (4.8-10.8) H 08/08/17 06:27 RBC 4.04 Mil/uL (3.80-5.20) 08/08/17 06:27 Hgb 12.4 g/dL (11.0-16.0) 08/08/17 06:27 Hct 39.1 % (34.0-47.0) 08/08/17 06:27 MCV 96.8 fL (81.0-99.0) D 08/08/17 06:27 MCH 30.8 pg (27.0-31.0) 08/08/17 06:27 MCHC 31.8 g/dL (33.0-37.0) L 08/08/17 06:27 RDW 14.9 % (11.5-14.5) H 08/08/17 06:27 Plt Count 176 K/uL (130-400) 08/08/17 06:27 MPV 10.6 fL (7.2-11.7) 08/08/17 06:27 Neut % (Auto) 89.1 % (50.0-75.0) H 08/08/17 06:27 Lymph % (Auto) 4.9 % (20.0-40.0) L 08/08/17 06:27 [place] % (Auto) 5.9 % (0.0-10.0) 08/08/17 06:27 Eos % (Auto) 0.0 % (0.0-4.0) 08/08/17 06:27 Baso % (Auto) 0.1 % (0.0-2.0) 08/08/17 06:27 Neut # (Auto) 20.2 K/uL (1.8-7.0) H 08/08/17 06:27 Lymph # (Auto) 1.1 K/uL (1.0-4.3) 08/08/17 06:27 [place] # (Auto) 1.3 K/uL (0.0-0.8) H 08/08/17 06:27 Eos # (Auto) 0.0 K/uL (0.0-0.7) 08/08/17 06:27 Baso # (Auto) 0.0 K/uL (0.0-0.2) 08/08/17 06:27 Neutrophils % (Manual) 87 % (50-75) H 08/08/17 06:27 Band Neutrophils % 3 % (0-2) H 08/08/17 06:27 Lymphocytes % (Manual) 5 % (20-40) L 08/08/17 06:27 Monocytes % (Manual) 5 % (0-10) 08/08/17 06:27 Platelet Estimate Normal (NORMAL) 08/08/17 06:27 RBC Morphology Normal 08/08/17 06:27 PT 15.7 SECONDS (9.7-12.2) H 08/07/17 01:41 INR 1.4 08/07/17 01:41 APTT 24 SECONDS (21-34) 08/07/17 01:41 Puncture Site Rr 08/07/17 02:27 pCO2 36 mm/Hg (35-45) 08/07/17 02:27 pO2 333 mm/Hg (80-100) H 08/07/17 02:27 HCO3 19.2 mmol/L (21-28) L 08/07/17 02:27 ABG pH 7.31 (7.35-7.45) L 08/07/17 02:27 ABG Total CO2 19.2 mmol/L (22-28) L 08/07/17 02:27 ABG O2 Saturation 100.5 % (95-98) H 08/07/17 02:27 ABG Base Excess -7.4 mmol/L (-2.0-3.0) L 08/07/17 02:27 ABG Hemoglobin 14.7 g/dL (11.7-17.4) 08/07/17 02:27 ABG Carboxyhemoglobin 1.9 % (0.5-1.5) H 08/07/17 02:27 POC ABG HHb (Measured) -0.5 % (0.0-5.0) L 08/07/17 02:27 ABG Methemoglobin 1.1 % (0.0-3.0) 08/07/17 02:27 Ede Test Pos 08/07/17 02:27 A-a O2 Difference 335.0 mm/Hg 08/07/17 02:27 Respiratory Index 1.0 08/07/17 02:27 Hgb O2 Saturation 97.4 % (95.0-98.0) 08/07/17 02:27 FiO2 100.0 % 08/07/17 02:27 Sodium 155 mmol/L (132-148) H 08/08/17 06:27 Potassium 3.8 mmol/L (3.6-5.2) 08/08/17 06:27 Chloride 121 mmol/L (98-107) H 08/08/17 06:27 Carbon Dioxide 20 mmol/L (22-30) L 08/08/17 06:27 Anion Gap 17 (10-20) 08/08/17 06:27 BUN 41 mg/dL (7-17) H 08/08/17 06:27 Creatinine 1.3 mg/dL (0.7-1.2) H 08/08/17 06:27 Est GFR ( Amer) 47 08/08/17 06:27 Est GFR (Non-Af Amer) 39 08/08/17 06:27 POC Glucose (mg/dL) 279 mg/dL (65-110) H 08/08/17 11:47 Random Glucose 326 mg/dL (65-105) H 08/08/17 06:27 Serum Osmolality 344 mosm/kg (272-300) H 08/08/17 13:22 Lactic Acid 4.1 mmol/L (0.7-2.1) H* 08/07/17 06:22 Calcium 8.3 mg/dl (8.6-10.4) L 08/08/17 06:27 Phosphorus 3.3 mg/dL (2.5-4.5) 08/08/17 06:27 Magnesium 2.3 mg/dL (1.6-2.3) 08/08/17 06:27 Total Bilirubin 0.6 mg/dL (0.2-1.3) 08/08/17 06:27 AST 43 U/L (14-36) H D 08/08/17 06:27 ALT 27 U/L (9-52) 08/08/17 06:27 Alkaline Phosphatase 102 U/L (38-126) 08/08/17 06:27 Total Protein 6.6 g/dL (6.3-8.3) 08/08/17 06:27 Albumin 2.7 g/dL (3.5-5.0) L 08/08/17 06:27 Globulin 4.0 gm/dL (2.2-3.9) H 08/08/17 06:27 Albumin/Globulin Ratio 0.7 (1.0-2.1) L 08/08/17 06:27 Lipase 191 U/L (23-300) 08/07/17 01:25 Urine Color [place] (YELLOW) 08/07/17 06:22 Urine Clarity Turbid (Clear) 08/07/17 06:22 Urine pH 5.0 (5.0-8.0) 08/07/17 06:22 Ur Specific [place] 1.012 (1.003-1.030) 08/07/17 06:22 Urine Protein 1+ mg/dL (NEGATIVE) H 08/07/17 06:22 Urine Glucose (UA) 3+ mg/dL (Normal) H 08/07/17 06:22 Urine Ketones Negative mg/dL (NEGATIVE) 08/07/17 06:22 Urine Blood 2+ (NEGATIVE) H 08/07/17 06:22 Urine Nitrate Negative (NEGATIVE) 08/07/17 06:22 Urine Bilirubin Negative (NEGATIVE) 08/07/17 06:22 Urine Urobilinogen Normal mg/dL (0.2-1.0) 08/07/17 06:22 Ur Leukocyte Esterase 3+ [place]/uL (Negative) H 08/07/17 06:22 Urine WBC (Auto) 1239 /hpf (0-5) H 08/07/17 06:22 Urine RBC (Auto) 15 /hpf (0-3) H 08/07/17 06:22 Urine WBC Clumps (Auto) Many /hpf (NONE) H 08/07/17 06:22 Urine Bacteria Mod (<OCC) H 08/07/17 06:22 Hyaline Casts >20 /lpf (0-2) H 08/07/17 06:22 Urine Yeast (Budding) Many /hpf (NEGATIVE) H 08/07/17 06:22 Urine Osmolality 585 mosm/kg (300-1000) 08/08/17 13:22 Ur Random Sodium 58 mmol/L 08/08/17 13:22 B-Hydroxybutyrate 0.30 mM (0.02-0.27) H 08/07/17 01:25 - Hospital Course Hospital Course: I have seen and examined the patient. Medical records, lab studies, and imaging were reviewed by me and a management plan was formulated on multidisciplinary rounds ] After discussing custodial goals with the family, it was decided to make the patient DNR/DNI. It was also decided that we should focus on the patient's comfort instead of prolonging her pain. Palliative care consult was called and family has agreed to hospice. Discharge Exam - Head Exam Head Exam: ATRAUMATIC, NORMAL INSPECTION, NORMOCEPHALIC Discharge Plan - Follow Up Plan Condition: GOOD Disposition: HOSPICE - MEDICAL FACILITY Referrals: Jhon Mckinney MD [Staff Provider] - (for ICU admission)
== END 2017-08-08 17:30 | disposition hospice, inpatient (51) | DRG 871 ==
LOC: C.ER 01:13 → C.9I 03:02
PROVIDERS: ADMIT Internal Medicine; ATTEND Internal Medicine
PROC: 06H033Z Insertion of Infusion Device into Inferior Vena Cava, Percutaneous Approach (ICD-10-PCS; principal; 2017-08-07)
DX: A41.9 Sepsis, unspecified organism (principal); E11.11 Type 2 diabetes mellitus with ketoacidosis with coma; J18.9 Pneumonia, unspecified organism; E46 Unspecified protein-calorie malnutrition; N17.9 Acute kidney failure, unspecified; N39.0 Urinary tract infection, site not specified; E86.0 Dehydration; I11.0 Hypertensive heart disease with heart failure; J84.10 Pulmonary fibrosis, unspecified; J43.9 Emphysema, unspecified; G30.9 Alzheimer's disease, unspecified; I50.9 Heart failure, unspecified; F02.80 Dementia in other diseases classified elsewhere, unspecified severity, without behavioral disturbance, psychotic disturbance, mood disturbance, and anxiety; M17.12 Unilateral primary osteoarthritis, left knee; E78.5 Hyperlipidemia, unspecified; E78.00 Pure hypercholesterolemia, unspecified; Z66 Do not resuscitate; Z51.5 Encounter for palliative care; Z85.3 Personal history of malignant neoplasm of breast; Z90.11 Acquired absence of right breast and nipple; R13.10 Dysphagia, unspecified

== ENCOUNTER 2017-08-08 17:06 | Inpatient (IN) | payer OTHER ==
[2017-08-08 19:18] VITALS: BMI 29.5
--- NOTE | 2017-08-09 09:36 | CP.PCM.PN ---
Subjective - Date & Time of Evaluation Date of Evaluation: 08/08/17 Time of Evaluation: 18:00 - Subjective Subjective: Pt seen and examined Objective - Vital Signs/Intake and Output Vital Signs (last 24 hours): Temp Pulse Resp BP Pulse Ox 98.2 F 81 14 59/29 L 95 08/08/17 20:00 08/09/17 06:00 08/09/17 06:00 08/09/17 06:00 08/09/17 06:00 Intake and Output: 08/09/17 08/09/17 06:59 18:59 Intake Total 47 10 Output Total 350 Balance -303 10 - Medications Medications: Current Medications Morphine Sulfate 250 mg/ (Sodium Chloride) 250 mls @ 1 mls/hr IV .Q24H PRN; Protocol PRN Reason: To titrate for comfort Last Titration: 08/08/17 21:00 Dose: 5 mg/hr, 5 mls/hr
--- NOTE | 2017-08-09 09:36 | CP.PCM.PN ---
Subjective - Date & Time of Evaluation Date of Evaluation: 08/09/17 Time of Evaluation: 18:00 - Subjective Subjective: Pt seen and examined Objective - Vital Signs/Intake and Output Vital Signs (last 24 hours): Temp Pulse Resp BP Pulse Ox 98.2 F 81 14 59/29 L 95 08/08/17 20:00 08/09/17 06:00 08/09/17 06:00 08/09/17 06:00 08/09/17 06:00 Intake and Output: 08/09/17 08/09/17 06:59 18:59 Intake Total 47 10 Output Total 350 Balance -303 10 - Medications Medications: Current Medications Morphine Sulfate 250 mg/ (Sodium Chloride) 250 mls @ 1 mls/hr IV .Q24H PRN; Protocol PRN Reason: To titrate for comfort Last Titration: 08/08/17 21:00 Dose: 5 mg/hr, 5 mls/hr
--- NOTE | 2017-08-10 01:05 | CP.PCM.HP ---
History of Present Illness - History of Present Illness History of Present Illness: CC: septicemia HPI: 85 year old female with h/o diabtes, COPD, advanced Alzeihmers, who was admitted at [facility] in ICU s/p UTI and septicemia, later on pt opted for hospice care and end of life care, initially she was improving on IV fluids and antibiotics but later on deterioted and pt family opter for DNR and DNI, now pt is hypotensive, on supportive care Present on Admission - Present on Admission Any Indicators Present on Admission: Yes Review of Systems - Review of Systems Systems not reviewed;Unavailable: Acuity of Condition - Constitutional Constitutional: Fatigue, Lethargy, Malaise - EENT Eyes: absent: As Per HPI, Blind Spots, Blurred Vision, Change in Vision, Decreased Night Vision, Diplopia, Discharge, Dry Eye, Exophthalmos, Floaters, Irritation, Itchy Eyes, Loss of Peripheral Vision, Pain, Photophobia, Requires Corrective Lenses, Sees Flashes, Spots in Vision, Tunnel Vision, Other Visual Disturbances, Loss of Vision, Other Nose/Mouth/Throat: absent: As Per HPI, Epistaxis, Nasal Congestion, Nasal Discharge, Nasal Obstruction, Nasal Trauma, Nose Pain, Post Nasal Drip, Sinus Pain, Sinus Pressure, Bleeding Gums, Change in Voice, Dental Pain, Dry Mouth, Dysphagia, Halitosis, Hoarsness, Lip Swelling, Mouth Lesions, Mouth Pain, Odynophagia, Sore Throat, Throat Swelling, Tongue Swelling, Facial Pain, Neck Pain, Neck Mass, Other - Cardiovascular Cardiovascular: Dyspnea, Slow Heart Rate - Respiratory Respiratory: Dyspnea Past Patient History - Infectious Disease Hx of Infectious Diseases: None - Past Medical History & Family History Past Medical History?: Yes - Past Social History Smoking Status: Never Smoked - CARDIAC Hx Congestive Heart Failure: Yes Hx Hypercholesterolemia: Yes Hx Hypertension: Yes - PULMONARY Hx Asthma: Yes Hx Chronic Obstructive Pulmonary Disease (COPD): Yes Hx Emphysema: Yes - NEUROLOGICAL Hx Dementia: Yes - HEENT Hx HEENT Problems: No - RENAL Hx Chronic Kidney Disease: No - ENDOCRINE/METABOLIC Hx Diabetes Mellitus Type 2: Yes - HEMATOLOGICAL/ONCOLOGICAL Hx Blood Disorders: Yes Hx Cancer: Yes (RIGHT BREAST CA) - INTEGUMENTARY Hx Dermatological Problems: No - MUSCULOSKELETAL/RHEUMATOLOGICAL Hx Falls: Yes - GASTROINTESTINAL Hx Gastrointestinal Disorders: Yes Hx Gastroesophageal Reflux: Yes Other/Comment: Esophagitis - GENITOURINARY/GYNECOLOGICAL Hx Genitourinary Disorders: No - PSYCHIATRIC Hx Anxiety: Yes Hx Depression: Yes Hx Substance Use: No - SURGICAL HISTORY Hx Surgeries: Yes Hx Mastectomy: Yes (Right mastectomy) Hx Orthopedic Surgery: Yes (left knee) - ANESTHESIA Hx Anesthesia: Yes Hx Anesthesia Reactions: No Hx Malignant Hyperthermia: No Meds Allergies/Adverse Reactions: Allergies Allergy/AdvReac Type Severity Reaction Status Date / Time No Known Allergies Allergy Verified 08/07/17 01:22 Physical Exam - Constitutional Appears: In Acute Distress, Confused, Chronically Ill - Head Exam Head Exam: ATRAUMATIC, NORMAL INSPECTION, NORMOCEPHALIC - Eye Exam Eye Exam: EOMI, Normal appearance, PERRL Pupil Exam: NORMAL ACCOMODATION, PERRL - ENT Exam ENT Exam: Mucous Membranes Moist, Normal Exam - Respiratory Exam Respiratory Exam: Decreased Breath Sounds, Rales, Rhonchi - Cardiovascular Exam Cardiovascular Exam: REGULAR RHYTHM - GI/Abdominal Exam GI & Abdominal Exam: Normal Bowel Sounds, Soft. absent: Tenderness - Rectal Exam Rectal Exam: Deferred Results - Vital Signs Recent Vital Signs: Last Vital Signs Temp 99.6 F 08/09/17 23:17 Pulse 100 H 08/09/17 23:17 Resp 20 08/09/17 23:17 BP 45/26 L 08/09/17 23:17 Pulse Ox 98 08/09/17 23:17 Assessment & Plan (1) Septicemia Status: Acute (2) Hospice care Status: Acute (3) Diabetes mellitus Status: Chronic (4) Hypertension Status: Chronic (5) Altered mental status, unspecified Status: Resolved
[2017-08-10] MEDS ORDERED: Hyoscyamine 0.125 mg SL Tab SL PRN (20:26)
[2017-08-10 23:20] VITALS: RESP 22
--- NOTE | 2017-08-10 23:29 | CP.PCM.PN ---
Subjective - Date & Time of Evaluation Date of Evaluation: 08/10/17 Time of Evaluation: 17:00 - Subjective Subjective: Pt seen and examined at bedside Objective - Vital Signs/Intake and Output Vital Signs (last 24 hours): Temp Pulse Resp BP Pulse Ox 99.4 F 100 H 22 52/29 L 97 08/10/17 23:14 08/10/17 23:14 08/10/17 23:14 08/10/17 23:14 08/10/17 23:14 Intake and Output: 08/10/17 08/11/17 18:59 06:59 Intake Total 249 Balance 249 - Medications Medications: Current Medications Hyoscyamine (Levsin) 0.125 mg SL Q6H PRN PRN Reason: For Secretions Morphine Sulfate 250 mg/ (Sodium Chloride) 250 mls @ 1 mls/hr IV .Q24H PRN; Protocol PRN Reason: To titrate for comfort Last Admin: 08/10/17 19:48 Dose: 5 mg/hr, 5 mls/hr Lorazepam (Ativan) 1 mg IVP Q6H PRN PRN Reason: Anxiety Assessment and Plan (1) Septicemia Status: Acute (2) Hospice care Status: Acute (3) Diabetes mellitus Status: Chronic (4) Hypertension Status: Chronic
[2017-08-11 06:49] VITALS: BP 53/29; O2SAT 95
[2017-08-11 17:00] VITALS: PULSE 111; TEMP 98.9
--- NOTE | 2017-08-11 20:34 | CP.PCM.PRO ---
Pronouncement of Note - Clinical Findings Physical Exam: No Response Verbal/Painful Stimuli, Absent Peripheral Pulses{ Carotid & Femoral}, Absent Heart & Breath Sounds, No Pupillary Light Reflex, No Corneal Reflex, Pupils Fixed & Dilated, Absence of Vital Signs - Pronouncement Time Time of Pronouncement of : 19:40 - Notifications Pronouncement Notifications: Family Notified [employer] Supervisor Notified: No - [place] [id number]
--- NOTE | 2017-08-11 23:21 | CP.PCM.DIS ---
Provider - Provider Date of Admission: 08/08/17 17:06 Attending physician: John Fay MD Diagnosis - Discharge Diagnosis (1) Septicemia Status: Acute (2) Hospice care Status: Acute (3) Diabetes mellitus Status: Chronic (4) Hypertension Status: Chronic Hospital Course - Lab Results Lab Results: Micro Results 08/09/17 16:49 Naris MRSA Culture - Final MRSA NOT DETECTED - Hospital Course Hospital Course: Pt was on hospiice care and End of life care, she today on physical exam No Response Verbal/Painful Stimuli, Absent Peripheral Pulses{Carotid & Femoral}, Absent Heart & Breath Sounds, No Pupillary Light Reflex, No Corneal Reflex, Pupils Fixed & Dilated, Absence of Vital Signs Discharge Exam - Head Exam Head Exam: ATRAUMATIC, NORMAL INSPECTION, NORMOCEPHALIC Discharge Plan - Follow Up Plan Condition: GOOD Disposition: WITH WITHOUT AUTOPSY
== END 2017-08-11 22:10 | DRG 872 ==
LOC: C.9I 17:06 → C.3T 08-09 11:18
PROVIDERS: ADMIT Internal Medicine; ATTEND Internal Medicine
DX: A41.9 Sepsis, unspecified organism (principal); I11.0 Hypertensive heart disease with heart failure; I50.9 Heart failure, unspecified; E78.00 Pure hypercholesterolemia, unspecified; E11.9 Type 2 diabetes mellitus without complications; J43.9 Emphysema, unspecified; K21.0 Gastro-esophageal reflux disease with esophagitis; Z51.5 Encounter for palliative care; Z66 Do not resuscitate; Z85.3 Personal history of malignant neoplasm of breast; G30.9 Alzheimer's disease, unspecified; F02.80 Dementia in other diseases classified elsewhere, unspecified severity, without behavioral disturbance, psychotic disturbance, mood disturbance, and anxiety